=== PATIENT | female | born 2000 | race Caucasian/White ===

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

== ENCOUNTER → 2018-07-01 10:46 | Outpatient (CLI) | payer OTHER, SELFPAY ==
[2018-07-01 11:41] LABS: Absolute Lymphocyte Count 1.36 X10^3/ul (0.83-4.51); Absolute Neutrophil Count 2.7 X10^3/uL (2.0-7.7); Basophil# 0.01 X10^3/uL; Basophil% 0.2 % (0-1); Eosinophil# 0.05 X10^3/uL; Eosinophils% 1.1 % (0-5); Hematocrit 40.3 % (37-47); Hemoglobin 13.2 g/dl (12.0-15.0); Lymphocyte # 1.36 X10^3/ul (4.0); Lymphocyte % 30.2 % (19-41); Mean Corp Hgb Conc 32.8 g/gl (32-36); Mean Corpuscular Hgb 29.6 pg (27.0-32.0); Mean Corpuscular Volume 90.4 fL (81-99); Mean Platelet Vol. 10.5 fl (6.2-12.0); Monocyte# 0.34 X10^3/uL; Monocyte% 7.6 % (0-10); Neutrophil # 2.73 X10^3/uL (2.7-7.7); Neutrophil % 60.7 % (47-70); Platelet Count 280 K/mm3 (150-450); RBC Distribution Width CV 12.4 % (11.6-14.6); RBC Distribution Width SD 40.6 fl (35.1-43.9); Red Blood Count 4.46 M/mm3 (4.2-5.4); White Blood Count 4.5 K/mm3 (4.4-11.0)
[2018-07-01 11:45] LABS: POSITIVE COUNT NO; POSITIVE DIFFERENTIAL NO; POSITIVE MORPHOLOGY NO
[2018-07-01 12:13] LABS: ALB/GLOB Ratio 1.1 RATIO (0.9-2.4); AST(SGOT) 18 U/L (15-37); Alanine Aminotransfer ALT/SGPT 21 U/L (13-56); Albumin, Serum 3.9 g/dL (3.2-5.0); Alkaline Phosphatase 43 U/L (45-117); Anion Gap 9 (5-15); BUN 14 mg/dL (7-18); BUN/Creat Ratio 14.3 RATIO (10-20); Chloride 106 mmol/L (98-107); Creatinine, Serum 0.98 mg/dL (0.55-1.02); EST Glomerular Filtration Rate 77 mL/min (>60); Est Glom Filt Rate - Afr Amer 94 mL/min (>60); Globulin 3.4 g/dL (2.2-4.2); Glucose 94 mg/dL (74-106); Potassium 4.1 mmol/L (3.5-5.1); Protein, Total 7.3 g/dL (6.4-8.2); Sodium Level 141 mmol/L (136-145); Thyroid Stim Hormone (TSH) 1.11 uIU/mL (0.358-3.74)
== END ==
PROVIDERS: Nurse Practitioner Family; Family Provider Family Medicine; PCP Family Medicine; Referring Provider Urology; Visit Provider Urology
DX: R53.83 Other fatigue (principal)
CPT/HCPCS: 36415; 80053; 84443; 85025

== ENCOUNTER → 2019-05-09 15:59 | Outpatient (CLI) | payer OTHER, SELFPAY ==
--- NOTE | 2019-05-09 16:12 | VDLE_ITS ---
Reason For Study: COMPARTMENT SYNDROME RIGHT GSV is normal. CFV is compressible, spontaneous, phasic, competent and demonstrates normal augmentation. FV is compressible, spontaneous, phasic, competent and demonstrates normal augmentation. POP V is compressible, spontaneous, phasic, competent and demonstrates normal augmentation. T/P Trunk is compressible. Rt PTV is dilated and NONCOMPRESSIBLE from mid calf to ankle. Rt PeroV is dilated and NONCOMPRESSIBLE. Technically difficult visualization due to edema s/p compartment syndrome surgery. Procedure Exam performed in department. A preliminary report was called and/or faxed to [facility]- Jovanni Alexis. Interpretation Summary Acute deep vein thrombosis is noted in the right posterior tibial vein. Acute deep vein thrombosis is noted in the right peroneal vein. The remainder of the right lower extremity deep venous system is patent and compressible. Valvular competence appears intact within the proximal deep venous system on the right . The right great saphenous vein appears patent and compressible segmentally. Ordering Physician: JOVANNI ALEXIS Referring Physician: JOVANNI ALEXIS Performed By: Mariam Sheridan, CRISTAL, RVT
== END ==
DX: M79.A22 Nontraumatic compartment syndrome of left lower extremity (principal); M79.A21 Nontraumatic compartment syndrome of right lower extremity
CPT/HCPCS: 93971

== ENCOUNTER → 2019-05-11 07:59 | Outpatient (CLI) | payer OTHER, SELFPAY ==
--- NOTE | 2019-05-11 08:02 | VDLE_ITS ---
Reason For Study: DVT RIGHT LEFT GSV is normal. CFV is compressible, spontaneous, phasic, CFV is compressible, spontaneous, phasic, competent, and demonstrates normal competent and demonstrates normal augmentation. augmentation. FV is compressible, spontaneous, phasic, competent and demonstrates normal augmentation. POP V is compressible, spontaneous, phasic, competent and demonstrates normal augmentation. T/P Trunk is compressible. Acute deep vein thrombosis is noted in the PTV and PeroV at mid calf to ankle. Procedure Exam performed in department. PeroV techically difficult to visualize throughout due to compartment syndrome surgery. Compared to exam done 05/09/2019. A preliminary report was called and/or faxed to [facility]. Interpretation Summary Acute deep vein thrombosis is noted in the right posterior tibial vein. Acute deep vein thrombosis is noted in the right peroneal vein. The remainder of the right lower extremity deep venous system is patent and compressible. Valvular competence appears intact within the proximal deep venous system on the right . The right great saphenous vein appears patent and compressible segmentally. There has been no significant change since a prior study on 05/09/2019. Ordering Physician: JOVANNI ALEXIS Performed By: Meche Silveira RVT
== END ==
DX: I82.4Z1 Acute embolism and thrombosis of unspecified deep veins of right distal lower extremity (principal)
CPT/HCPCS: 93971

== ENCOUNTER → 2019-05-18 09:57 | Outpatient (CLI) | payer OTHER, SELFPAY ==
--- NOTE | 2019-05-18 10:05 | VDLE_ITS ---
Reason For Study: DVT RIGHT LEFT GSV is normal. CFV is compressible, spontaneous, phasic, CFV is compressible, spontaneous, phasic, competent, and demonstrates normal competent and demonstrates normal augmentation. augmentation. FV is compressible, spontaneous, phasic, competent and demonstrates normal augmentation. POP V is compressible, spontaneous, phasic, competent and demonstrates normal augmentation. T/P Trunk is compressible. Acute deep vein thrombosis is noted in the right peroneal vein. Acute deep vein thrombosis is noted in the right PTV, but is no longer dilated. Hypoechoic structure noted throughout the right proximal calf muscle. Procedure Exam performed in department. Compared to 05/11/2019. A preliminary report was called and/or faxed to [facility]. Interpretation Summary Acute deep vein thrombosis is noted in the right peroneal vein. Acute deep vein thrombosis is noted in the right posterior tibial vein. The remainder of the right lower extremity deep venous system is patent and compressible. Valvular competence appears intact within the proximal deep venous system on the right . The right great saphenous vein appears patent and compressible segmentally. There has been no significant change in the right lower extremity deep venous thrombosis since a prior study on 05/11/2019. A large, non-vascular, hypoechoic structure is noted in the right proximal calf. This may represent a hematoma or seroma. Clinical correlation is advised. Ordering Physician: JOVANNI ALEXIS Performed By: Meche Silveira RVT
== END ==
DX: I82.4Z1 Acute embolism and thrombosis of unspecified deep veins of right distal lower extremity (principal)
CPT/HCPCS: 93971

== ENCOUNTER → 2019-07-06 14:03 | Outpatient (CLI) | payer OTHER, SELFPAY ==
--- NOTE | 2019-07-06 14:06 | VDLE_ITS ---
Reason For Study: DVT RIGHT GSV is normal. CFV is compressible, spontaneous, phasic, competent and demonstrates normal augmentation. FV is compressible, spontaneous, phasic, competent and demonstrates normal augmentation. POP V is compressible, spontaneous, phasic, competent and demonstrates normal augmentation. T/P Trunk is compressible. PTV is compressible. RT PerV is compressible. Compared to 05/18/2019. Procedure Exam performed in department. A preliminary report was called and/or faxed to [facility]. Interpretation Summary Deep veins of the right lower extremity are patent and compressible segmentally. There is no evidence of right lower extremity deep vein thrombosis. Valvular competence appears intact within the proximal deep venous system on the right . The right great saphenous vein appears patent and compressible segmentally. Acute deep vein thrombosis, identified in the right lower extremity on previous studies, appears to have resolved. Ordering Physician: Edilberto Garcia Performed By: Meche Silveira RVT
== END ==
PROVIDERS: PCP Orthopaedic Surgery; Referring Provider Orthopaedic Surgery; Visit Provider Orthopaedic Surgery
DX: I82.4Z1 Acute embolism and thrombosis of unspecified deep veins of right distal lower extremity (principal)
CPT/HCPCS: 93971

== ENCOUNTER → 2019-11-21 09:55 | Outpatient (CLI) | payer OTHER, SELFPAY ==
[2019-11-21 13:05] LABS: Cholesterol 179 mg/dL (200); High Density Lipoprotein 74 mg/dL; Triglycerides 75 mg/dL; Very Low Density Lipoprotein 15 mg/dL (5-40)
[2019-11-21 13:06] LABS: Homocysteine 7.4 umol/L (3.2-10.7)
== END ==
PROVIDERS: PCP Family Medicine; Referring Provider Family Medicine; Visit Provider Obstetrics & Gynecology
DX: Z86.718 Personal history of other venous thrombosis and embolism (principal)
CPT/HCPCS: 36415; 80061; 81240; 81241; 81291; 83090

== ENCOUNTER → 2019-12-10 09:55 | Outpatient (CLI) | payer OTHER, SELFPAY ==
--- NOTE | 2019-12-10 09:56 | ECHOD_ITS ---
Reason For Study: Arrhythmia Procedure This was a 2D Doppler, Color Flow transthoracic echocardiogram. Exam performed in department. Left Ventricle Normal LV size. Left ventricular systolic function is normal. The estimated ejection fraction is 60 %. Normal diastology for age. No regional wall motion abnormalities noted. Right Ventricle Normal RV size. Normal systolic function. Atria Normal left atrium. Normal right atrium. Mitral Valve Normal mitral valve. Tricuspid Valve Normal tricuspid valve. Aortic Valve Normal aortic valve. Trisinus/trileaflet aortic valve. Pulmonic Valve Normal pulmonic valve. Great Vessels Normal aortic root. The pulmonary artery is normal size. Normal inferior vena cava. Inferior vena cava collapse with sniff. Pericardium/Pleural No pericardial effusion. MMode/2D Measurements & Calculations LVIDd: 4.5 cm IVSd: 0.67 cm Ao root diam: 2.4 cm LVIDs: 3.2 cm LVPWd: 0.71 cm RVDd: 2.2 cm FS: 30.1 % LAV(MOD-bp): 16.1 ml LA A4 area: 9.9 cm2 RA A4 area: 8.1 cm2 LAV(MOD-bp) Indexed: 9.5 ml/m2 LAV(MOD-sp2): 14.9 ml LAV(MOD-sp4): 15.4 ml Doppler Measurements & Calculations MV E max pablo: 95.0 cm/sec Lat Peak E' Pablo: 16.7 cm/sec Med Peak E' Pablo: 16.7 cm/sec MV A max pablo: 35.7 cm/sec E/E' lat: 5.7 E/E' med: 5.7 MV E/A: 2.7 Ao V2 max: 115.3 cm/sec LV V1 max: 103.1 cm/sec PA V2 max: 109.3 cm/sec Ao max P.3 mmHg LV V1 max P.3 mmHg Interpretation Summary Normal LV size. Left ventricular systolic function is normal. The estimated ejection fraction is 60 %. Structurally normal valves. Ordering Physician: Be Lugo Referring Physician: Shine Kapadia Performed By: Marianela Brian RDCS
== END ==
PROVIDERS: PCP Family Medicine; Referring Provider Internal Medicine Cardiovascular Disease; Visit Provider Internal Medicine Cardiovascular Disease
DX: Q67.6 Pectus excavatum (principal); Z82.49 Family history of ischemic heart disease and other diseases of the circulatory system; E72.12 Methylenetetrahydrofolate reductase deficiency; Z86.718 Personal history of other venous thrombosis and embolism
CPT/HCPCS: 93306

== ENCOUNTER → 2022-01-01 | Outpatient (CLI) | payer OTHER, SELFPAY ==
[2022-01-06 08:42] LABS: V-Zoster Virus Acute IgM < 0.91 index (0.00-0.90)
== END | disposition home or self-care (01) ==
LOC: MTLAB 15:19
PROVIDERS: PCP Family Medicine; Referring Provider Family Medicine; Visit Provider Family Medicine
DX: Z78.9 Other specified health status (principal)
CPT/HCPCS: 36415; 86787

== ENCOUNTER → 2022-07-16 | Outpatient (CLI) | payer OTHER, SELFPAY ==
[2022-07-16 09:19] LABS: Absolute Lymphocyte Count 1.06 X10^3/uL (0.83-4.51); Absolute Neutrophil Count 1.9 X10^3/uL (2.0-7.7); Basophil# 0.02 X10^3/uL; Basophil% 0.6 % (0-1); Eosinophil# 0.06 X10^3/uL; Eosinophils% 1.8 % (0-5); Hemoglobin 13.9 g/dL (12.0-15.0); Lymphocyte # 1.06 X10^3/ul (0.83-4.51); Lymphocyte % 32.5 % (19-41); Mean Corp Hgb Conc 33.9 g/dL (32-36); Mean Corpuscular Volume 91.5 fL (81-99); Mean Platelet Vol. 10.7 fl (6.2-12.0); Monocyte# 0.23 X10^3/uL; Monocyte% 7.1 % (0-10); NRBC Flagged by Analyzer 0 % (0-5); Neutrophil # 1.89 X10^3/uL (2.7-7.7); Platelet Count 212 K/mm3 (150-450); RBC Distribution Width CV 11.8 % (11.6-14.6); Red Blood Count 4.48 M/mm3 (4.2-5.4); White Blood Count 3.3 K/mm3 (4.4-11.0)
[2022-07-16 09:44] LABS: ALB/GLOB Ratio 1.3 RATIO (0.9-2.4); AST(SGOT) 21 U/L (15-37); Alanine Aminotransfer ALT/SGPT 35 U/L (13-56); Albumin, Serum 4.3 g/dL (3.2-5.0); Alkaline Phosphatase 38 U/L (45-117); Anion Gap 6 (5-15); BUN 11 mg/dL (7-18); BUN/Creat Ratio 12.9 RATIO (10-20); Calcium,Total 9.6 mg/dL (8.5-10.1); Chloride 109 mmol/L (98-107); Cholesterol 151 mg/dL (200); Creatinine, Serum 0.86 mg/dL (0.55-1.02); EST Glomerular Filtration Rate 87 mL/min (>60); Est Glom Filt Rate - Afr Amer 105 mL/min (>60); Globulin 3.2 g/dL (2.2-4.2); Glucose 94 mg/dL (74-106); High Density Lipoprotein 56 mg/dL; Potassium 3.9 mmol/L (3.5-5.1); Protein, Total 7.5 g/dL (6.4-8.2); Sodium Level 140 mmol/L (136-145); Triglycerides 53 mg/dL; Very Low Density Lipoprotein 11 mg/dL (5-40)
== END | disposition home or self-care (01) ==
LOC: BIMLAB 08:40
PROVIDERS: PCP Family Medicine; Visit Provider Internal Medicine
DX: E72.12 Methylenetetrahydrofolate reductase deficiency (principal); Z82.49 Family history of ischemic heart disease and other diseases of the circulatory system; Z86.718 Personal history of other venous thrombosis and embolism
CPT/HCPCS: 36415; 80053; 80061; 83090; 85025

== ENCOUNTER → 2022-11-12 | Outpatient (CLI) | payer OTHER, SELFPAY ==
[2022-11-12 09:05] LABS: Glucose 75GTT - 30 minutes 122 mg/dL (100-160)
[2022-11-12 09:19] LABS: Insulin 75GTT - 30 MIN 96.4 mU/L (Not Estab.)
[2022-11-12 09:20] LABS: Insulin 75GTT - Fasting 4.2 mU/L (2.6-37.6)
[2022-11-12 09:20] LABS: Progesterone Level 0.72 ng/mL (See Comment); T3 Total - Triiodothyronine 1.03 ng/mL (0.6-1.81); Vitamin B12 259 pg/mL (211-911)
[2022-11-12 09:23] LABS: Prolactin 79.4 ng/mL; Thyroid Stim Hormone (TSH) 1.87 uIU/mL (0.358-3.74)
[2022-11-12 10:32] LABS: Glucose 75GTT - Fasting 105 mg/dL (70-99)
[2022-11-12 10:39] LABS: Glucose 75GTT - 120 minutes 64 mg/dL (70-140)
[2022-11-12 10:40] LABS: Cholesterol 118 mg/dL (200); Estradiol 41.2 pg/mL; Free T3 2.6 pg/mL (2.18-3.98); High Density Lipoprotein 55 mg/dL; Luteinizing Hormone 5.3 mIU/mL; Prolactin 28.7 ng/mL; T4 Free Direct 1.18 ng/dL (0.76-1.46); Thyroid Stim Hormone (TSH) 2.03 uIU/mL (0.358-3.74); Triglycerides 62 mg/dL; Very Low Density Lipoprotein 12 mg/dL (5-40)
[2022-11-12 10:47] LABS: Insulin 75GTT - 120 min 27.5 mU/L (Not Estab.)
[2022-11-12 10:48] LABS: Glucose 75GTT - 60 minutes 60 mg/dL (100-160)
[2022-11-12 10:52] LABS: Insulin 75GTT - 60 min 64.5 mU/L (Not Estab)
[2022-11-12 10:53] LABS: Prolactin 25.5 ng/mL; Thyroid Stim Hormone (TSH) 1.34 uIU/mL (0.358-3.74)
[2022-11-12 11:35] LABS: Prolactin 19.1 ng/mL; Thyroid Stim Hormone (TSH) 1.13 uIU/mL (0.358-3.74)
[2022-11-15 17:07] LABS: 17-Hydroxyprogesterone 48 ng/dL (.)
[2022-11-18 12:09] LABS: Androstenedione 91 ng/dL (41-262); Anti-Mullerian Hormone,Serum 4.01 ng/mL (.); Sex Hormone-binding Globulin 59.7 nmol/L (24.6-122.0); Testosterone, % Free 2.17 % (0.50-2.80); Testosterone, Free 0.52 ng/dL (0.10-0.85); Testosterone, Total 24 ng/dL (13-71)
== END | disposition home or self-care (01) ==
LOC: LAB 07:06
PROVIDERS: PCP Internal Medicine; Referring Provider Obstetrics & Gynecology; Visit Provider Obstetrics & Gynecology
DX: N91.2 Amenorrhea, unspecified (principal); E11.9 Type 2 diabetes mellitus without complications; Z13.220 Encounter for screening for lipoid disorders; E55.9 Vitamin D deficiency, unspecified; Z13.228 Encounter for screening for other metabolic disorders; Z13.1 Encounter for screening for diabetes mellitus
CPT/HCPCS: 36415; 80061; 82157; 82306; 82533; 82607; 82627; 82670; 82951; 82952; 83001; 83002; 83498; 83516; 83525; 84144; 84146; 84270; 84402; 84403; 84439; 84443; 84480; 84481; 82626

== ENCOUNTER → 2022-12-06 | Outpatient (CLI) | payer OTHER, SELFPAY ==
--- NOTE | 2022-12-06 17:05 | MRI_ITS ---
INDICATION: AMENORRHEA,HYPERPROLACTINEMIA SYNDROME EXAMINATION: MRI - MR Brain WO/W Contrast TECHNIQUE: Multiplanar and multisequence MR images of the brain, including thin slice imaging of the pituitary gland were obtained without and with gadolinium. IV Contrast Dosage and Agent: 11 cc Clariscan. COMPARISON: None. FINDINGS: BRAIN AND EXTRA-AXIAL SPACES: No intracranial mass, mass effect, or midline shift. No enhancing lesion. No hemorrhage, territorial infarct or acute ischemia. White matter is normal. Normal bey-white differentiation. Ventricles are normal in size. SELLA: Pituitary gland is normal in height for the patient''s age measuring 7 mm. No evidence of microadenoma or macroadenoma. Normal infundibulum, cavernous sinuses and optic chiasm. AUDITORY SYSTEM: Unremarkable. BONES/JOINTS: Unremarkable. SINUSES: Unremarkable as visualized. Clear. MASTOID AIR CELLS: Unremarkable as visualized. Clear. ORBITS: Unremarkable as visualized. VASCULATURE: Normal flow voids in the major intracranial circulation. MRI/Brain W/WO Contrast IMPRESSION: Negative MRI Brain. Unremarkable pituitary gland. Electronically Signed: Faina Sylvester MD at 23:00 EDT Reading Location ID and State: [id number] / Tel , Service support ,
== END | disposition home or self-care (01) ==
PROVIDERS: PCP Internal Medicine; Referring Provider Obstetrics & Gynecology; Visit Provider Obstetrics & Gynecology
DX: E23.0 Hypopituitarism (principal); E22.1 Hyperprolactinemia; N91.2 Amenorrhea, unspecified
CPT/HCPCS: 70553; A9575

== ENCOUNTER → 2023-02-28 | Outpatient (CLI) | payer OTHER, SELFPAY ==
[2023-02-28 12:34] LABS: Prolactin 10.7 ng/mL
[2023-02-28 14:02] LABS: Vitamin B12 475 pg/mL (211-911)
== END | disposition home or self-care (01) ==
LOC: BIMLAB 08:04
PROVIDERS: PCP Internal Medicine; Visit Provider Internal Medicine
DX: E53.8 Deficiency of other specified B group vitamins (principal); E23.0 Hypopituitarism
CPT/HCPCS: 36415; 82607; 84146

== ENCOUNTER → 2023-04-12 | Outpatient (CLI) | payer OTHER, SELFPAY ==
[2023-04-12 12:37] LABS: Prolactin 15.2 ng/mL
== END | disposition home or self-care (01) ==
LOC: BIMLAB 08:14
PROVIDERS: PCP Internal Medicine; Visit Provider Obstetrics & Gynecology
DX: E23.0 Hypopituitarism (principal)
CPT/HCPCS: 36415; 84146

== ENCOUNTER → 2023-06-29 | Outpatient (CLI) | payer OTHER, SELFPAY ==
--- OUTSIDE RECORDS SUMMARY | 2023-06-29 06:36 | XMS RPT_ITS | CCD ---
Author Name Unknown Address [address] [place] [address] Organization [facility] Care Team Providers Care Project Development Director Name Role Phone BRENNON URENA Unavailable Unavailable GRACE BUSBY Unavailable Unavailable Results Test Name Value Interpretation Reference Range Facil ity Encounters Encounter Date Encounter Type Care Provider Facility Start: 05-25-2017 End: 05-26-2017 Emergency department patient visit BRENNON URENA Facil ity:B Procedures Date Procedure Procedure Detail Performing Clinician Start: 10-16-2018 Blood count hematocrit Payers Date Payer Category Payer Unknown [id number] Summary Purpose Family History No Family History Records FoundNo Family History Records FoundNo Family History Records Found Advance Directives No Advanced Directives Records FoundNo Advanced Directives Records FoundNo Advanced Directives Records Found Additional Source Comments INFORMATION SOURCE (unrecogn ized section and content) DATE CREATED AUTHOR AUTHOR'S ORGANIZ ATION 05/03/2019 [facility] DATE CREATED AUTHOR AUTHOR'S ORGANIZ ATION 07/07/2019 [facility] FOR RECORDS PERTAINING TO PATIENTS WHO ARE OR HAVE BEEN ENROLLED IN A CHEMICAL DEPENDENCY/SUBSTANCEABUSE PROGRAM, SOME INFORMATION MAY BE OMITTED. This clinical summary was aggregated from multiple sources. Caution should be exercised in using it in the provision of clinical care. This summary normalizes information from multiple sources, and as a consequence, information in this document may materially change the coding, format and clinical context of patient data. In addition, data may be omitted in some cases. CLINICAL DECISIONS SHOULD BE BASED ON THE PRIMARY CLINICAL RECORDS. [facility] [employer] provides no warranty or guarantee of the accuracy or completeness of information in this document.
[2023-06-29 07:41] LABS: Prolactin 20.4 ng/mL
== END | disposition home or self-care (01) ==
LOC: LAB 06:34
PROVIDERS: PCP Internal Medicine; Referring Provider Obstetrics & Gynecology; Visit Provider Obstetrics & Gynecology
DX: E22.1 Hyperprolactinemia (principal)
CPT/HCPCS: 36415; 84146

== ENCOUNTER → 2023-08-03 | Outpatient (CLI) | payer OTHER, SELFPAY ==
[2023-08-03 11:14] LABS: Prolactin 9.8 ng/mL
== END | disposition home or self-care (01) ==
LOC: LAB 07:13
PROVIDERS: PCP Internal Medicine; Referring Provider Obstetrics & Gynecology; Visit Provider Obstetrics & Gynecology
DX: E22.1 Hyperprolactinemia (principal)
CPT/HCPCS: 36415; 84146

== ENCOUNTER → 2024-02-07 | Outpatient (CLI) | payer OTHER, SELFPAY ==
[2024-02-07 17:32] LABS: Absolute Lymphocyte Count 1.49 X10^3/uL (0.83-4.51); Absolute Neutrophil Count 5.2 X10^3/uL (2.0-7.7); Basophil# 0.02 X10^3/uL; Basophil% 0.3 % (0-1); Eosinophil# 0.03 X10^3/uL; Eosinophils% 0.4 % (0-5); Hematocrit 41.4 % (37-47); Hemoglobin 13.9 g/dL (12.0-15.0); Lymphocyte # 1.49 X10^3/ul (0.83-4.51); Lymphocyte % 20.7 % (19-41); Mean Corp Hgb Conc 33.6 g/dL (32-36); Mean Corpuscular Volume 92.4 fL (81-99); Mean Platelet Vol. 10.6 fl (6.2-12.0); Monocyte# 0.49 X10^3/uL; Monocyte% 6.8 % (0-10); NRBC Flagged by Analyzer 0 % (0-5); Neutrophil # 5.16 X10^3/uL (2.7-7.7); Neutrophil % 71.7 % (47-70); Platelet Count 238 K/mm3 (150-450); RBC Distribution Width SD 41.1 fl (35.1-43.9); Red Blood Count 4.48 M/mm3 (4.2-5.4); White Blood Count 7.2 K/mm3 (4.4-11.0)
[2024-02-07 17:49] LABS: ALB/GLOB Ratio 1.3 RATIO (0.9-2.4); AST(SGOT) 19 U/L (15-37); Alanine Aminotransfer ALT/SGPT 21 U/L (13-56); Albumin, Serum 4.3 g/dL (3.2-5.0); Alkaline Phosphatase 43 U/L (45-117); Anion Gap 6 (5-15); BUN 15 mg/dL (7-18); BUN/Creat Ratio 16.7 RATIO (10-20); Calcium,Total 9.9 mg/dL (8.5-10.1); Chloride 104 mmol/L (98-107); Cholesterol 153 mg/dL (200); EST Glomerular Filtration Rate 81 mL/min (>60); Est Glom Filt Rate - Afr Amer 98 mL/min (>60); Globulin 3.3 g/dL (2.2-4.2); Glucose 89 mg/dL (74-106); High Density Lipoprotein 69 mg/dL; Potassium 3.9 mmol/L (3.5-5.1); Protein, Total 7.6 g/dL (6.4-8.2); Sodium Level 136 mmol/L (136-145); Triglycerides 71 mg/dL; Very Low Density Lipoprotein 14 mg/dL (5-40)
[2024-02-09 08:13] LABS: PROGESTERONE 10.9 ng/mL (.)
== END | disposition home or self-care (01) ==
LOC: BIMLAB 15:27
PROVIDERS: PCP Internal Medicine; Referring Provider Obstetrics & Gynecology; Visit Provider Obstetrics & Gynecology
DX: N92.6 Irregular menstruation, unspecified (principal)
CPT/HCPCS: 36415; 80053; 80061; 84144; 85025

== ENCOUNTER → 2024-06-13 | Outpatient (CLI) | payer OTHER, SELFPAY ==
[2024-06-13 17:23] LABS: Estradiol 111.3 pg/mL
[2024-06-13 17:42] LABS: hCG Titer Quant., Serum 2395 mIU/mL (1-3)
[2024-06-15 04:07] LABS: PROGESTERONE 7.6 ng/mL (.)
== END | disposition home or self-care (01) ==
LOC: BIMLAB 14:53
PROVIDERS: PCP Internal Medicine; Referring Provider Obstetrics & Gynecology; Visit Provider Obstetrics & Gynecology
DX: N92.6 Irregular menstruation, unspecified (principal)
CPT/HCPCS: 36415; 82670; 84144; 84702

== ENCOUNTER → 2024-06-17 | Outpatient (CLI) | payer OTHER, SELFPAY ==
[2024-06-17 11:36] LABS: hCG Titer Quant., Serum 2045 mIU/mL (1-3)
== END | disposition home or self-care (01) ==
LOC: LAB 10:36
PROVIDERS: PCP Student in an Organized Health Care Education/Training Program; Visit Provider Obstetrics & Gynecology
DX: O20.9 Hemorrhage in early pregnancy, unspecified (principal); Z3A.00 Weeks of gestation of pregnancy not specified
CPT/HCPCS: 36415; 84702

== ENCOUNTER → 2024-06-18 | Outpatient (CLI) | payer OTHER, SELFPAY ==
--- NOTE | 2024-06-18 09:31 | US_ITS ---
EXAM: US First Trimester , Transabdominal and Transvaginal CLINICAL INDICATION: TECHNIQUE: Real-time transabdominal and transvaginal obstetrical ultrasound of the maternal pelvis and a first trimester with image documentation. Transvaginal imaging was used for better evaluation of the fetus and adnexa. COMPARISON: No relevant prior studies available. FINDINGS: GESTATION: Gestational sac 0.71 cm. This appears to be low-lying and complex. CRL not visualized. Yolk sac not visualized. PLACENTA/AMNIOTIC FLUID: Cannot be adequately evaluated due to the early gestational age. UTERUS/CERVIX: Unremarkable. No myometrial mass. The uterus measures 9.1 x 5.1 x 3.1 cm. OVARIES: Unremarkable. No mass. FREE FLUID: No free fluid. OTHER FINDINGS: Multiple attempts to call Dr Catherine Lennon were unsuccessful as documented by the director of people. US/Transvaginal w/Preg US IMPRESSION: Possible low-lying gestational sac corresponding to 5 weeks and 3 days gestatio n. heart tone or yolk sac not visualized at this time. This may be secondary to early or missed . Beta HCG on 04/12 was 2395 and on 06/15 was 2045. Repeat pelvic ultrasound in 10-14 days is recommended. Continue following seri al beta HCG. Reading Location: [place]
== END | disposition home or self-care (01) ==
PROVIDERS: PCP Student in an Organized Health Care Education/Training Program; Referring Provider Obstetrics & Gynecology; Visit Provider Obstetrics & Gynecology
DX: N92.6 Irregular menstruation, unspecified (principal)
CPT/HCPCS: 76817

== ENCOUNTER → 2024-06-28 | Outpatient (CLI) | payer OTHER, SELFPAY ==
--- NOTE | 2024-06-28 15:23 | US_ITS ---
PROCEDURE: TRANSVAGINAL W/PREG US REASON FOR EXAM: Threatened . Bleeding. COMPARISON: Comparison is made with prior study dated June 18, 2024. FINDINGS: Comments: LMP: May 02, 2024. Number of Gestational Sacs: Not visualized. Number of Fetuses: Not visualized. Yolk Sac: Not visualized. Placenta: Presently not well-visualized Uterine Abnormalities: Maternal uterus is unremarkable. Ovaries / Adnexa: 1.1 cm x 1.1 cm x 0.9 cm left ovarian follicle. US/Transvaginal w/Preg US IMPRESSION: No intrauterine gestation is seen at this time. Reading Location: [place]
== END | disposition home or self-care (01) ==
PROVIDERS: PCP Student in an Organized Health Care Education/Training Program; Referring Provider Obstetrics & Gynecology; Visit Provider Obstetrics & Gynecology
DX: O20.0 Threatened abortion (principal); Z3A.00 Weeks of gestation of pregnancy not specified
CPT/HCPCS: 76817

== ENCOUNTER → 2024-06-28 | Outpatient (CLI) | payer OTHER, SELFPAY ==
[2024-06-28 15:48] LABS: Internal QC Validated? YES +Cl - CLEAR BKGD; Pregnancy, Serum, hCG Quali. POSITIVE Negative
[2024-06-29 14:35] LABS: hCG Titer Quant., Serum 36 mIU/mL (<9 non-preg)
== END | disposition home or self-care (01) ==
LOC: LAB 15:10
PROVIDERS: PCP Student in an Organized Health Care Education/Training Program; Referring Provider Obstetrics & Gynecology; Visit Provider Obstetrics & Gynecology
DX: O20.0 Threatened abortion (principal); Z3A.00 Weeks of gestation of pregnancy not specified
CPT/HCPCS: 36415; 84702; 84703

== ENCOUNTER 2024-08-25 07:40 | Outpatient (RCR) | payer OTHER, SELFPAY | END 2024-08-29 18:00 | disposition home or self-care (01) | LOC: LAB 07:40 | PROVIDERS: PCP Student in an Organized Health Care Education/Training Program; Referring Provider Obstetrics & Gynecology; Visit Provider Obstetrics & Gynecology | DX: E22.1 Hyperprolactinemia (principal) | CPT/HCPCS: 36415; 84146 ==

== ENCOUNTER → 2024-12-06 | Outpatient (CLI) | payer OTHER, SELFPAY ==
[2024-12-06 15:20] LABS: hCG Titer Quant., Serum 397 mIU/mL (<9 non-preg)
[2024-12-07 04:07] LABS: PROLACTIN 21.4 ng/mL (4.8-33.4)
[2024-12-07 04:07] LABS: PROGESTERONE 18.0 ng/mL (.)
== END | disposition home or self-care (01) ==
LOC: LAB 10:25
PROVIDERS: PCP Student in an Organized Health Care Education/Training Program; Referring Provider Obstetrics & Gynecology; Visit Provider Obstetrics & Gynecology
DX: E22.1 Hyperprolactinemia (principal); E28.9 Ovarian dysfunction, unspecified
CPT/HCPCS: 36415; 82670; 84144; 84146; 84702

== ENCOUNTER → 2024-12-20 | Outpatient (CLI) | payer OTHER, SELFPAY ==
--- NOTE | 2024-12-20 14:29 | US_ITS ---
PROCEDURE: TRANSVAGINAL W/PREG US 12/20/2024 REASON FOR EXAM: VERIFY DATES AND LOCATION TECHNIQUE: TRANSVAGINAL W/PREG US COMPARISON: None FINDINGS: Comments: LMP: November 04, 2024. Number of Gestational Sacs: 1 Gestational Sac Shape: Normal Number of Fetuses: 1 Heart Rate: 126 beats per minute (average) Yolk Sac: Present and unremarkable. Placenta: Presently not well-visualized Amniotic Fluid Volume: Subjectively normal for gestational age. Uterine Abnormalities: Maternal uterus is unremarkable. Ovaries / Adnexa: Both maternal ovaries are visualized and unremarkable. DIMENSIONS: Parameter Measurement / EGA [place] Rump Length: 3 mm/6 weeks and 1 day Gestational Sac: 1.71 cm/6 weeks and 4 days Yolk Sac: 2.7 mm/ ESTIMATED GESTATIONAL AGE: By Ultrasound: 6 weeks and 3 days By LMP: 6 weeks and 4 days ESTIMATED DATE OF DELIVERY: By Ultrasound: August 12, 2025 By LMP: August 11, 2025 US/Transvaginal w/Preg US IMPRESSION: UNREMARKABLE FIRST TRIMESTER ULTRASOUND. Single live intrauterine gestation with a mean gestational age of 6 weeks and 3 days. Reading Location: [id number]
--- OUTSIDE RECORDS SUMMARY | 2024-12-20 20:49 | XMS RPT_ITS | CCD ---
Author Organization [facility] Care Team Providers Care Director Inbound Sales Name Role Phone ROMEL, BRENNON Unavailable Unavailable GRACE BUSBY Unavailable Unavailable Dr. Grace Kapadia Referring Provider Dr. Fatemeh Medina Attending Provider [phone] Dr. Fatemeh Medina Primary Care Provider [phone] Dr. Fatemeh Medina Referring Provider [phone] Dr. Fatemeh Medina Primary Care Provider [phone] Dr. Fatemeh Medina Attending Provider [phone] Dr. Fatemeh Medina Referring Provider [phone] Dr. Fatemeh Medina Primary Care Provider [phone] Dr. Fatemeh Medina Attending Provider [phone] Dr. Fatemeh Medina Referring Provider [phone] Unavailable Primary Care Provider UnavailDr. Fatemeh Hernandez Primary Care Provider [phone] Dr. Fatemeh Medina Attending Provider [phone] Dr. Fatemeh Medina Referring Provider [phone] Sean Bond DO Primary Care Provider Dr. Fatemeh Medina MD Primary Care Provider Kulwinder Lennon MD, Dr. Alexander Attending Provider Kulwinder Lennon MDDr. Alexander Referring Provider Dr. Sean Bond DO Primary Care Provider ANDREI, JULI Referring Unavailable BOND, SEAN L Primary Care Unavailable Mariely LOCOMOTIVE DRIVER.AUTOMOTIVE GENERATOR REPAIRER, Stephanie Unavailable BOND, SEAN L Attending Unavailable BOND, SEAN L Primary Care Unavailable BOND, SEAN L Primary Care Unavailable BONDSEAN L Attending Unavailable SELF Referring Unavailable BOND, SEAN L Referring Unavailable PROUDFIT, JULI Attending Unavailable BOND, SEAN L Primary Care Unavailable SELF Referring Unavailable BOND, SEAN L Primary Care Unavailable BOND, SEAN L Primary Care Unavailable BOND, SEAN L Referring Unavailable BOND, SEAN L Primary Care Unavailable AMANDA BUSBY CNM Attending Unavailable AMANDA BUSBY CNM Primary Care Unavailable AMANDA BUSBY CNM Admitting Unavailable PRESTON MIRAMONTES SUMMER Admitting Unavailable PRESTON MIRAMONTES SUMMER Attending Unavailable PRESTON MIRAMONTES SUMMER Primary Care Unavailable PRESTON MIRAMONTES SUMMER Attending Unavailable PRESTON MIRAMONTES SUMMER Primary Care Unavailable PRESTON MIRAMONTES SUMMER Admitting Unavailable Dr. Sean Bond DO Primary Care Provider [phone] Dr. Catherine Stafford MD Attending Provider Dr. Catherine Stafford MD Referring Provider Catherine Stafford Attending Unavailable Miramontes Preston, Summer Referring Unavailable Oleghe, Efewongbe Primary Care Unavailable Miramontespuja Lennon Summer Attending Unavailable Kulwinder Lennon Summer Referring Unavailable eSan Bond Primary Care Unavailable Oleghe, Efewongbe Attending Unavailable Oleghe, Efewongbe Referring Unavailable Oleghe, Efewongbe Primary Care Unavailable Miramontes Preston, Summer Referring Unavailable Miramontespuja Lennon Summer Attending Unavailable Sean Bond Primary Care Unavailable Miramontespuja Lennon Summer Referring Unavailable Catherine Stafford Attending Unavailable Sean Bond Primary Care Unavailable Oleghe, Efewongbe Primary Care Unavailable Miramontes Preston, Summer Attending Unavailable Miramontes Preston, Summer Referring Unavailable Miramontes Preston, Summer Referring Unavailable Kulwinder Lennon Summer Attending Unavailable Sean Bond Primary Care Unavailable Oleghe, Efewongbe Referring Unavailable NURSE, BIM Attending Unavailable Oleghe, Efewongbe Primary Care Unavailable Catherine Stafford Attending Unavailable Sean Bond Primary Care Unavailable Catherine Stafford Referring Unavailable Catherine Stafford Attending Unavailable Sean Bond Primary Care Unavailable Catherine Stafford Referring Unavailable Catherine Stafford Attending Unavailable Sean Bond Primary Care Unavailable Medications Current Medications Medication Drug Class(es) Dates Sig (Normalized) Sig (Original) bromocriptine 2.5 mg oral tablet (9 sources) Ergot Derivative Start: 04-01-2023 Bromocriptine 2.5 mg tablet Active mg PO August 25, 2023 12:00am Completed/Discontinued Medications Medication Drug Class(es) Dates Sig (Normalized) Sig (Original) adapalene 0.003 mg/mg topical gel (9 sources) Retinoid Start: 11-11-2022 End: 08-25-2023 Adapalene 0.3 % gel Discontinued 1 NMA TOPICAL EVERY EVENING 45 November 11, 2022 12:00am August 25, 2023 5:59pm clindamycin 0.01 mg/mg topical gel (9 sources) Lincosamide Antibacterial Start: 11-11-2022 End: 08-25-2023 Clindamycin Phosphate 1 % gel Discontinued 1 NMA TOPICAL every day in the morning and at bedtime 60 November 11, 2022 12:00am August 25, 2023 6:00pm codeine phosphate 2 mg/ml / phenylephrine hydrochloride 1 mg/ml / promethazine hydrochloride 1.25 mg/ml oral solution (2 sources) Opioid Agonist, Phenothiazine, alpha-1 Adrenergic Agonist Start: 05-21-2016 End: 05-01-2024 PROMETHAZINE VC-CODEINE 6.25-5-10 mg/5 mL syrp 05/21/2016 05/01/2024 Discontinued 24 hr desvenlafaxine succinate 25 mg extended release oral tablet (3 sources) Serotonin and Norepinephrine Reuptake Inhibitor Start: 11-29-2023 End: 03-08-2024 take 1 tablet by mouth once daily in the morning, then take 1 tablet by mouth every twenty-four hours Desvenlafaxine Succinate (Pristiq) 25 mg tablet extended release 24 hr Discontinued 25 mg PO EVERY MORNING 30 November 29, 2023 12:00am March 08, 2024 6:09pm drospirenone / Ethinyl Estradiol (2 sources) Progestin, Estrogen Start: 05-10-2016 End: 05-01-2024 Drospirenone-Ethiny l Estradiol (ELISA 28) 3-0.02 mg per tablet 05/10/2016 05/01/2024 Discontinued Start: 05-10-2016 Drospirenone-E thinyl Estradiol (ELISA 28) 3-0.02 mg per tablet 05/10/2016 Active hydrOXYzine hydrochloride 25 mg oral tablet (9 sources) Antihistamine Start: 11-11-2022 End: 08-25-2023 Hydroxyzine Hcl 25 mg tablet Discontinued 12.5 mg PO TWICE A DAY as needed for anxiety 60 November 11, 2022 12:00am August 25, 2023 6:00pm Start: 11-11-2022 take 12.5 mg by mout h twice daily Hydroxyzine Hcl Active 12.5 MG PO TWICE A DAY 60 November 11, 2022 12:00am minocycline 100 mg oral capsule (3 sources) Tetracycline-class Drug Start: 08-25-2023 End: 03-08-2024 take 1 mg by mouth once daily Minocycline 100 mg capsule Discontinued mg PO daily August 25, 2023 12:00am March 08, 2024 6:09pm sertraline 50 mg oral tablet (20 sources) Serotonin Reuptake Inhibitor Start: 05-26-2023 End: 08-25-2023 take 0.5 tablet by mouth once daily, then take 1 tablet by mouth once daily Sertraline (Zoloft) 50 mg tablet Discontinued 50 mg PO DAILY May 26, 2023 1:00am August 25, 2023 6:00pm Take 1/2 tablet daily x 2 weeks then increase to 1 tablet daily Start: 01-05-2023 End: 05-26-2023 take 1 tablet by mouth once daily Sertraline 50 mg tablet Discontinued 50 mg PO DAILY January 05, 2023 1:04pm May 26, 2023 2:22pm Start: 11-11-2022 End: 01-05-2023 take 0.5 tablet by mouth once daily, then take 1 tablet by mouth once daily Sertraline (Zoloft) 50 mg tablet Discontinued 50 mg PO DAILY 30 November 11, 2022 12:00am January 05, 2023 1:05pm Take 1/2 tablet daily x 2 weeks then increase to 1 tablet daily. spironolactone 100 mg oral tablet (19 sources) Aldosterone Antagonist Start: 11-11-2022 End: 05-26-2023 take 1 tablet by mouth once daily Spironolactone 100 mg tablet Discontinued 100 mg PO DAILY November 11, 2022 12:00am May 26, 2023 2:22pm Start: 12-05-2019 End: 07-07-2022 take 1 tablet by mouth once daily Spironolactone 50 mg tablet Discontinued 50 mg PO DAILY December 05, 2019 12:00am July 07, 2022 4:20pm Problems Active Problems Problem Classification Problem Date Documented Date Episodic/Chronic Anxiety disorders (20 sources) Generalized anxiety disorder; Translations: [Generalized anxiety disorder] Onset: 11-11-2022 Chronic Coagulation and hemorrhagic disorders (9 sources) Disorder of hemostatic system; Translations: [Coagulation defect, unspecified] Onset: 05-01-2024 Chronic Menstrual disorders (11 sources) Irregular periods; Translations: [Irregular menstruation, unspecified] Onset: 05-01-2024 Chronic Nutritional deficiencies (9 sources) Cobalamin deficiency; Translations: [Deficiency of other specified B group vitamins] 12-30-2022 Episodic Other congenital anomalies (10 sources) Pectus excavatum; Translations: [Pectus excavatum] 12-05-2019 Chronic Other diseases of veins and lymphatics (9 sources) Venous insufficiency of leg; Translations: [Venous insufficiency (chronic) (peripheral)] 07-07-2022 Episodic Other endocrine disorders (15 sources) Hyperprolactinemia; Translations: [Hyperprolactinemia] Onset: 12-30-2022 Chronic Other endocrine disorders (9 sources) Hyperprolactinemia; Translations: [Other and unspecified anterior pituitary hyperfunction] Onset: 12-30-2022 Chronic Other endocrine disorders (7 sources) Delayed menarche; 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] Onset: 05-01-2024 Chronic Other endocrine disorders (1 source) Delayed puberty; 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] Onset: Chronic Other endocrine disorders (2 sources) Ovarian dysfunction, unspecified; Translations: [Ovarian dysfunction, unspecified] Onset: Chronic Other gastrointestinal disorders (3 sources) Constipation; Translations: [Constipation, unspecified] 03-08-2024 Episodic Other skin disorders (9 sources) Acne; Translations: [Acne, unspecified] 11-11-2022 Episodic Other skin disorders (7 sources) Acne, unspecified; Translations: [Other acne] 11-11-2022 Episodic Residual codes; unclassified (10 sources) Heterozygous methylenetetrahydrofolate reductase mutation; Translations: [Genetic susceptibility to other disease] 12-10-2019 Episodic Residual codes; unclassified (10 sources) Family history of coronary arteriosclerosis; Translations: [Family history of ischemic heart disease and other diseases of the circulatory system] 12-05-2019 Episodic Residual codes; unclassified (11 sources) Genetic alleles; Translations: [Genetic susceptibility to other disease] Onset: 12-10-2019 Episodic Comment on above: Heterozygous for the 4G/5G deletion/insertion allele. 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] Onset: Episodic Residual codes; unclassified (1 source) Personal history of other complications of , childbirth and the puerperium; Translations: [History of miscarriage] Onset: Episodic Screening and history of mental health and substance abuse codes (2 sources) Patient encounter status; Translations: [Encounter for screening examination for other mental health and behavioral disorders] Onset: 10-10-2024 Episodic Past or Other Problems Problem Classification Problem Date Documented Da te Episodic/Chronic Hemorrhage during ; abruptio placenta; placenta previa (3 sources) Threatened ; Translations: [Hemorrhage in early , unspecified] Onset: 06-29-2024 Episodic Immunizations and screening for infectious disease (10 sources) Needs influenza immunization; Translations: [Encounter for immunization] Onset: 02-07-2024 01-26-2023 Episodic Other gastrointestinal disorders (8 sources) Acute constipation; Translations: [Constipation, unspecified] Onset: 05-01-2024 05-01-2024 Episodic Other gastrointestinal disorders (1 source) Constipation, unspecified; Translations: [Acute constipation] Onset: 05-01-2024 Episodic Phlebitis; thrombophlebitis and thromboembolism (10 sources) H/O: Deep vein thrombosis; Translations: [Personal history of other venous thrombosis and embolism] Onset: 05-02-2019 12-05-2019 Episodic Residual codes; unclassified (7 sources) FH: premature coronary heart disease; Translations: [Family history of ischemic heart disease and other diseases of the circulatory system] Onset: 05-01-2024 05-01-2024 Episodic Residual codes; unclassified (2 sources) Family history of ischemic heart disease and other diseases of the circulatory system; Translations: [Family history of premature CAD] Onset: 03-08-2024 Episodic Residual codes; unclassified (1 source) Other specified postprocedural states; Translations: [History of fasciotomy] Onset: 05-01-2024 Episodic Results Test Name Value Interpretation Reference Range Facility PROGESTERONE 4317on 12-19-19 25 PROGESTERONE 41.3 ng/mL Normal . [facility] Comment on above: Order Comment: PT RE FUSED CALLIN GFOR A DIFFERENT ORDER PATIENT DOES NOT WANT PROGESTERONE.RANGLE Result Comment: Foll icular phase 0.1 - 0.9 Luteal phase 1.8 - 23.9 Ovulation phase 0.1 - 12.0 First trimester 11.0 - 44.3 Second trimester 25.4 - 83.3 Third trimester 58.7 - 214.0 Postmenopausal 0.0 - 0.1 Performed at: - [facility] [id number] Weatherization Operations Manager: Terry Cantrell PhD, Phone: [phone] Performed By: #### L [id number] #### [facility] [address] [place], [place], [id number] Estradiolon 12-17-2024 ESTRADIOL 484.0 pg/mL Normal [facility] Comment on above: Result Comment: FEMA LES ADULT FEMALE: Premenopausal: 15-350 pg/mL(E2 levels vary widely through the menstrual cycle) Postmenopausal: <10 pg/mL DEVYN STAGES MEAN AGE REFERENCE RANGES Stage I(>14 days and prepubertal) 7.1 years Undetectable-20 pg/mLL Stage II 10.5 years Undetectable-24 pg/mL Stage III 11.6 years Undetectable-60 pg/mL Stage IV 12.3 years 15-85 pg/mL Stage V 14.5 years 15-350 pg/mL Puberty onset (transition from Devyn stage I to Devyn stage II) occurs for girls at a median age of 10.5 (/- 2) years. There is evidence that it may occur up to 1 year earlier in obese girls and in girls. Progression through Devyn stages is variable. Devyn stage V (adult) should be reached by age 18. Performed By: #### L 3100.5400 #### [facility] [address] [place], [place], [id number] hCG Titer Quant., Serumon HCG QUANT. 42177 mIU/mL High <9 non-preg [facility] Comment on above: Result Comment: Gest ational Age 0.2-1 Week: 5-50 mIU/mL 1-2 Weeks: 50-500 mIU/mL 2-3 Weeks: 100-5000 mIU/mL 3-4 Weeks: 500-10,000 mIU/mL 4-5 Weeks:1000-50,000 mIU/mL 5-6 Weeks: 10,000-100,000 mIU/mL 6-8 Weeks: 15,000-200,000 mIU/mL 2-3 Months:10,000-100,000 mIU/mL Performed By: #### L [id number] #### [facility] [address] [place], [place], [id number] PROGESTERONE 4317on 12-12-19 25 PROGESTERONE 14.1 ng/mL Normal . [facility] Comment on above: Order Comment: CHIQUI Sher RESULTS @[id number] Result Comment: Foll icular phase 0.1 - 0.9 Luteal phase 1.8 - 23.9 Ovulation phase 0.1 - 12.0 First trimester 11.0 - 44.3 Second trimester 25.4 - 83.3 Third trimester 58.7 - 214.0 Postmenopausal 0.0 - 0.1 Performed at: [facility] [id number] Weatherization Operations Manager: Terry Cantrell PhD, Phone: [phone] Performed By: #### L [id number] #### [facility] [address] [place], [place], [id number] PROLACTIN 4465on 12-11-2024 PROLACTIN 49.2 ng/mL High 4.8-33.4 [facility] Comment on above: Result Comment: Perf ormed at: [facility] [id number] Weatherization Operations Manager: Terry Cantrell PhD, Phone: [phone] Performed By: #### L [id number] #### [facility] [address] [place], [address] Estradiolon 12-10-2024 ESTRADIOL 419.0 pg/mL Normal [facility] Comment on above: Result Comment: FEMA LES ADULT FEMALE: Premenopausal: 15-350 pg/mL(E2 levels vary widely through the menstrual cycle) Postmenopausal: <10 pg/mL DEVYN STAGES MEAN AGE REFERENCE RANGES Stage I(>14 days and prepubertal) 7.1 years Undetectable-20 pg/mLL Stage II 10.5 years Undetectable-24 pg/mL Stage III 11.6 years Undetectable-60 pg/mL Stage IV 12.3 years 15-85 pg/mL Stage V 14.5 years 15-350 pg/mL Puberty onset (transition from Devyn stage I to Devyn stage II) occurs for girls at a median age of 10.5 (/- 2) years. There is evidence that it may occur up to 1 year earlier in obese girls and in girls. Progression through Devyn stages is variable. Devyn stage V (adult) should be reached by age 18. Performed By: #### L [id number] #### [facility] [address] [place], [place], [id number] Serum human chorionic gonado tropin detection for pregnancyOrdered By: Catherine Lennon on 12-10-2024 HCG ( test) Ql 1829 mIU/mL High <9 [facility] Comment on above: Gestational Age0.2-1 Week: 5-50 mIU/mL1-2 Weeks: 50-500 mIU/mL2-3 Weeks: 100-5000 mIU/mL3-4 Weeks: 500-10,000 mIU/mL4-5 Weeks:1000-50,000 mIU/mL5-6 Weeks: 10,000-100,000 mIU/mL6-8 Weeks: 15,000-200,000 mIU/mL2-3 Months:10,000-100,000 mIU/mL Serum or plasma estradiol me asurement after follitropin dose (mass/volume)Ordered By: Catherine Lennon on 12-10-2024 E2 post dose follitropin [Mass/Vol] 419.0 pg/mL [facility] Comment on above: FEMALES ADULT FEMALE : Premenopausal: 15-350 pg/mL(E2 levels vary widely through the menstrual cycle) Postmenopausal: <10 pg/mL DEVYN STAGES MEAN AGE REFERENCE RANGES Stage I(>14 days and prepubertal) 7.1 years Undetectable-20 pg/mLL Stage II 10.5 years Undetectable-24 pg/mL Stage III 11.6 years Undetectable-60 pg/mL Stage IV 12.3 years 15-85 pg/mL Stage V 14.5 years 15-350 pg/mL Puberty onset (transition from Devyn stage I to Devyn stage II) occurs for girls at a median age of 10.5 (/- 2) years. There is evidence that it may occur up to 1 year earlier in obese girls and in girls.Progression through Devyn stages is variable. Devyn stage V (adult) should be reached by age 18. Serum or plasma prolactin me asurement (mass/volume)Ordered By: Catherine Lennon on 12-10-2024 Prolactin [Mass/Vol] 49.2 ng/mL High 4.8-33.4 [facility] Comment on above: Performed at: [address] [id number] Director: Terry Cantrell PhD, Phone: [phone] hCG Titer Quant., Serumon HCG QUANT. 1829 mIU/mL High <9 non-preg [facility] Comment on above: Result Comment: Gest ational Age 0.2-1 Week: 5-50 mIU/mL 1-2 Weeks: 50-500 mIU/mL 2-3 Weeks: 100-5000 mIU/mL 3-4 Weeks: 500-10,000 mIU/mL 4-5 Weeks:1000-50,000 mIU/mL 5-6 Weeks: 10,000-100,000 mIU/mL 6-8 Weeks: 15,000-200,000 mIU/mL 2-3 Months:10,000-100,000 mIU/mL Performed By: #### L 700.8000 #### [facility] [address] [place], [place], [id number] PROGESTERONE 4317on 12-08-19 PROGESTERONE 18.0 ng/mL Normal . [facility] Comment on above: Order Comment: PLEAS E CALL W RESULTS @[id number] Result Comment: Foll icular phase 0.1 - 0.9 Luteal phase 1.8 - 23.9 Ovulation phase 0.1 - 12.0 First trimester 11.0 - 44.3 Second trimester 25.4 - 83.3 Third trimester 58.7 - 214.0 Postmenopausal 0.0 - 0.1 Performed at: [facility] [id number] Weatherization Operations Manager: Terry Cantrell PhD, Phone: [phone] Performed By: #### L [id number] #### [facility] [address] [place], [place], [id number] PROLACTIN 4465on 12-07-2024 PROLACTIN 21.4 ng/mL Normal 4.8-33.4 [facility] Comment on above: Result Comment: Perf ormed at: [address] [id number] Weatherization Operations Manager: Terry Cantrell PhD, Phone: [phone] Performed By: #### L [id number] #### [facility] [address] [place], [place], [address] Estradiolon 12-06-2024 ESTRADIOL 203.0 pg/mL Normal [facility] Comment on above: Order Comment: CHIQUI HENSON W RESULTS @[id number] Result Comment: FEMA LES ADULT FEMALE: Premenopausal: 15-350 pg/mL(E2 levels vary widely through the menstrual cycle) Postmenopausal: <10 pg/mL DEVYN STAGES MEAN AGE REFERENCE RANGES Stage I(>14 days and prepubertal) 7.1 years Undetectable-20 pg/mLL Stage II 10.5 years Undetectable-24 pg/mL Stage III 11.6 years Undetectable-60 pg/mL Stage IV 12.3 years 15-85 pg/mL Stage V 14.5 years 15-350 pg/mL Puberty onset (transition from Devyn stage I to Devyn stage II) occurs for girls at a median age of 10.5 (/- 2) years. There is evidence that it may occur up to 1 year earlier in obese girls and in girls. Progression through Devyn stages is variable. Devyn stage V (adult) should be reached by age 18. Performed By: #### L [id number] #### [facility] [address] [place], [place], [address] Serum human chorionic gonado tropin detection for pregnancyOrdered By: Catherine Lennon on 12-06-2024 HCG ( test) Ql 397 mIU/mL High <9 [facility] Comment on above: Gestational Age0.2-1 Week: 5-50 mIU/mL1-2 Weeks: 50-500 mIU/mL2-3 Weeks: 100-5000 mIU/mL3-4 Weeks: 500-10,000 mIU/mL4-5 Weeks:1000-50,000 mIU/mL5-6 Weeks: 10,000-100,000 mIU/mL6-8 Weeks: 15,000-200,000 mIU/mL2-3 Months:10,000-100,000 mIU/mL Serum or plasma estradiol me asurement after follitropin dose (mass/volume)Ordered By: Catherine Lennon on 12-06-2024 E2 post dose follitropin [Mass/Vol] 203.0 pg/mL [facility] Comment on above: FEMALES ADULT FEMALE : Premenopausal: 15-350 pg/mL(E2 levels vary widely through the menstrual cycle) Postmenopausal: <10 pg/mL DEVYN STAGES MEAN AGE REFERENCE RANGES Stage I(>14 days and prepubertal) 7.1 years Undetectable-20 pg/mLL Stage II 10.5 years Undetectable-24 pg/mL Stage III 11.6 years Undetectable-60 pg/mL Stage IV 12.3 years 15-85 pg/mL Stage V 14.5 years 15-350 pg/mL Puberty onset (transition from Devyn stage I to Devyn stage II) occurs for girls at a median age of 10.5 (/- 2) years. There is evidence that it may occur up to 1 year earlier in obese girls and in girls.Progression through Devyn stages is variable. Devyn stage V (adult) should be reached by age 18. Serum or plasma prolactin me asurement (mass/volume)Ordered By: Catherine Lennon on 12-06-2024 Prolactin [Mass/Vol] 21.4 ng/mL 4.8-33.4 [facility] Comment on above: Performed at: [address] [id number] Director: Terry Cantrell PhD, Phone: [phone] hCG Titer Quant., Serumon HCG QUANT. 397 mIU/mL High <9 non-preg [facility] Comment on above: Order Comment: PLEAS E CALL W RESULTS @[id number] Result Comment: Gest ational Age 0.2-1 Week: 5-50 mIU/mL 1-2 Weeks: 50-500 mIU/mL 2-3 Weeks: 100-5000 mIU/mL 3-4 Weeks: 500-10,000 mIU/mL 4-5 Weeks:1000-50,000 mIU/mL 5-6 Weeks: 10,000-100,000 mIU/mL 6-8 Weeks: 15,000-200,000 mIU/mL 2-3 Months:10,000-100,000 mIU/mL Performed By: #### L 952.3600 #### [facility] [address] [place], [address] [facility] 10-10-2024 [facility] Office Visit (FAMPWS ) ----- CARISSA TRIPATHI ([id number]) 2000 F Date Time Provider Department 10/10/24 1:40 PM [facility] During your visit today, we recorded the following information about you: Temperature Pulse Respiration Blood pressure 96.6 degrees 64/minute 12/minute 124/80 Weight Last Period 61.7 kg 10/07/24 Sean Bond, 10/10/2024 10:40 PM Signed CC: Carissa Tripathi is a 23 year old female who presents to the office for follow up HPI: Seen in the office 05/01/2024 to establish care as below, Hx of b/l leg fasciotomy in the past 3-4 years when she was having 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 Had compartment syndrome testing and subsequent surgery at [facility]. 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 She was then eventually stopped on her OCPs since she was taking these for menstrual regulation Hx of late onset of menarche at age 14 and only developed menses by being on OCPs. She wasn't ovulating. She has recently then been found to have hyperprolactinemia and started originally on Cabergoline but had severe GI upset. She was then changed to Bromocriptine which is what she takes now but only able to tolerate this when inserted vaginally. She struggles with constipation that came with abrupt onset around the same time as diagnosed with hyperprolactinemia and started on these medications. Also concerned about potential dairy food trigger or gluten food trigger to some of her symptoms since developed rash on her face that seemed to improved with removal of gluten and dairy Mild chronic anxiety symptoms. Did benefit in the past with zoloft but would prefer not be taking SSRI She has been told that because of the clotting disorder and the hyperprolactinemia, she may need special hormone management and medications when she is . She is now and would like to become in the future. She has Dr. Catherine Lennon as DIE DEVELOPER. Hasn't seen MFM/EDGAR in the past but is willing to. Family history of premature cardiac disease and premature in her father at age 52 and her paternal aunt and paternal grandfather all <55 years old Currently She had a recent miscarriage, this was confirmed by Dr. Catherine Kramer DIE DEVELOPER as well as with serum hcg testing. She was referred to [facility] specialist for opinion to determine if she needed any intervention with anti coagulation or progesterone support when she gets in the future. She is excited that she is able to get Anxiety, situational triggered, feels that this is related to her current job and all the stress that she has with her job. 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 She doesn't want to be on medication for this. Is now taking a vitamin. She is continuing to take her bromocriptine but still wondering if this contributes to her facial acne and constipation Acne, found to have lactose intolerance with labs ordered in the last few months. She has tried to cut out dairy from her diet and realizes that she feels a lot better doing this. Her skin acne is resolved when following this and constipation improves. PAST MEDICAL HISTORY Diagnosis Date JAMARCUS-1 4G/5G genotype PAST SURGICAL HISTORY Procedure Laterality Date FASCIOTOMY,ILIOTIBIAL,OPE N Bilateral Current Outpatient Medications Medication Sig bromocriptine (PARLODEL) 2.5 mg tablet 2.5 mg. 2 pills daily No current facility-administered medications for this visit. ALLERGIES No Known Allergies Social History Tobacco Use Smoking status: Never Smokeless tobacco: Never Vaping Use Vaping status: Never Used Substance Use Topics Alcohol use: Not Currently Drug use: Never ROS: See HIP PE: BP 124/80 Pulse 64 Temp (Src) 96.6 (Left Tympanic) Resp 12 Wt 136 lb (61.7kg) LMP 10/07/2024 Gen: AANDOX3, NAD, non-toxic appearing HEENT: PERRLA, EOMs intact b/l, nares without drainage, pharynx without erythema, exudate, lesions, or drainage. Uvula midline. Neck: No LAD, no thyromegaly, no meningismus. CV: RRR, no murmur Lungs: CTA b/l, no wheezing Skin: No rashes, lesions, or wounds on exposed skin. Facial acne mild No edema legs ASSESSMENT/PLAN: 1. Situational anxiety - ICD9: 300.09, ICD10: F41.8 (primary diagnosis) She is not interested in being on medication. Was on zoloft in the past with benefit Can consider therapy/counseling Needs to consider a job change as well, which was d/w her today 2. Encounter for screening examination for other mental health and behavioral disorders - ICD9: V79.8, ICD10: Z13.39 - ANXIETY SCREENING 3. Hyperprolactinemia (HCC) - ICD9: 253.1, ICD10: E22.1 (more content not included)... Normal [facility] Antithrombin Ag actual/george l IA (PPP) [Relative mass conc]on 08-27-2024 Antithrombin Ag IA Qn (PPP) 88 % Normal 80-120 [facility] Comment on above: Order Comment: Speckatya suazo Type: BLOOD SPECIMEN Ordering Facility: [facility] Address: [address] [place] [address] Performed By: #### 2 7812-7, PRCFUN #### [facility] CLIA [id number] [address] [place] [address] [place] BETA 2 GLYCOPROTEIN, IGGon 0 08-27-2024 Beta 2 glycoprotein 1 IgG IA Qn <9 Normal <20 [facility] Comment on above: Order Comment: Speci men Type: BLOOD SPECIMEN Ordering Facility: [facility] Address: [address] [place] [address] Result Comment: <20 SGU Negative 20-80 SGU Low Positive >80 SGU High Positive These results were obtained with the [employer] QUANTA Lite B2 GPI IgG TESS. B2 GPI IgG values obtained with different manufacturers' assay methods may not be used interchangeably. The magnitude of the reported IgG levels cannot be correlated to an endpoint titer. Performed By: #### C ARDIM, BETA2G, BETA2M, 5076-5, CARDIG #### [facility] CLIA [id number] [address] [place] [address] [place] BETA 2 GLYCOPROTEIN, IGMon 0 08-27-2024 Beta 2 glycoprotein 1 IgM IA Qn <9 Normal <20 [facility] Comment on above: Order Comment: Alexis suazo Type: BLOOD SPECIMEN Ordering Facility: [facility] Address: [address] [place] [address] Result Comment: <20 SMU Negative 20-80 SMU Low Positive >80 [facility]U High positive These results were obtained with the [employer] QUANTA Lite B2 GPI IgM TESS. B2 GPI IgM values obtained with different manufacturers' assay methods may not be used interchangeably. The magnitude of the reported IgM levels cannot be correlated to an endpoint titer. Performed By: #### C ARDIM, BETA2G, BETA2M, 5076-5, ASHLEY #### [facility] CLIA [id number] [address] [place] [address] [place] CARDIOLIPIN IGG ABSon 2024 Cardiolipin IgG IA Qn (S) <9.0 Normal <15.0 [facility] Comment on above: Order Comment: Alexis [facility] Type: BLOOD SPECIMEN Ordering Facility: [facility] Address: [address] [place] [address] Result Comment: <15 GPL Negative 15-20 GPL Indeterminate >20 GPL Positive The following results were obtained with the [employer] QUANTA Lite JORJE IgG III TESS. Cardiolipin IgG values obtained with the different manufacturers' assay methods may not be used interchangeably. The magnitude of the reported IgG levels cannot be correlated to an endpoint titer. Performed By: #### 2 7812-7, PRCFUN #### [facility] CLIA [id number] [address] [place] [address] [place] CARDIOLIPIN IGM ABSon 2024 Cardiolipin IgM IA Qn (S) 9.2 MPL Normal <12.5 [facility] Comment on above: Order Comment: Alexis [facility] Type: BLOOD SPECIMEN Ordering Facility: [facility] Address: [address] [place] [address] Result Comment: <12. 5 MPL Negative 12.5-20 MPL Indeterminate >20 MPL Positive The following results were obtained with the [employer] QUANTA Lite JORJE IgM III TESS. Cardiolipin IgM values obtained with the different manufacturers' assay methods may not be used interchangeably. The magnitude of the reported IgM levels cannot be correlated to an endpoint titer. ??? Performed By: #### 2 7812-7, PRCFUN #### [facility] CLIA [id number] [address] [place] [address] OF [facility] CNOVon 08-27-2024 CNOV Office Visit ([id number] ) ----- CARISSA TRIPATHI ([id number]) 2000 F Date Time Provider Department 08/27/24 8:00 AM JULI HARDY [id number] During your visit today, we recorded the following information about you: Pulse Blood pressure Weight Last Period 71/minute 105/66 62.2 kg 08/16/24 Juli Hardy MD 08/27/2024 9:20 AM Signed [facility] CONSULTATION Requested by: Dr. Sean Bond Reason for consultation: blood clotting disorder, hisotry Reporting: Note/evaluation from today sent to requesting provider via shared medical record. HPI: Ms. Carissa Tripathi is a 23 year old woman who is not currently with a history remarkable for the followin. History of blood clots - The patient had lower extremity blood clots following fasciotomies for treatment of compartment syndrome which resulted from surgery for a stress fractur. She was not treated with anticoagulation given that the clots were below the knee and concern for bleeding risk in the setting of her surgery. 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 Review of records on her phone shows that she was negative for Factor V Leiden but there is no testing for other inherited or acquired thrombophilias. She was told told that she should not take estrogen-containing OCPs. She was recently (with a subsequent early miscarriage) and did start lovenox upon learning of her . 2. Hyperprolactinemia - The patient was found to have hyperprolactinemia during evaluation of oligomenorrhea. She states that head imaging showed either that she does not have a prolactinoma or that it is so small that it can barely be seen. She is maintained on bromocriptine. PAST MEDICAL HISTORY Diagnosis Date JAMARCUS-1 4G/5G genotype PAST SURGICAL HISTORY Procedure Laterality Date FASCIOTOMY,ILIOTIBIAL,OPE N Bilateral FAMILY HISTORY Problem Relation Age of Onset Heart Attack Father 52 Cancer Maternal Grandfather 71 esophageal Heart Attack Paternal Grandmother Breast Cancer Paternal Grandmother 79 Heart Attack Paternal Grandfather 42 Social History Tobacco Use Smoking status: Never Smokeless tobacco: Never Vaping Use Vaping status: Never Used Substance Use Topics Alcohol use: Not Currently Drug use: Never ALLERGIES No Known Allergies OB History Gravida1 Para0 Term0 Preterm0 AB1 Living0 SAB1 IAB0 Ectopic0 Multiple0 Live Births0 IMPRESSION: 23 year old woman with: ACTIVE PROBLEM LIST History of Fasciotomy - 05/01/2024 Irregular Menses - 05/01/2024 Late Menarche - 05/01/2024 Clotting Disorder (Hcc) - 05/01/2024 Family History of Premature Cad - 05/01/2024 Acute Constipation - 05/01/2024 Hyperprolactinemia (Hcc) - 05/01/2024 1. History of thromboembolism in the setting of orthopedic surgery - Due to the thrombogenic nature of , patients with a history of venous thromboembolism (VTE) may have an increased risk of recurrence during . The risk of recurrence is influenced by the circumstances surrounding the original DVT. For example, women with transient risk factors at the time of DVT such as prolonged immobilization and major surgery are less likely to have a DVT recurrence compared to women whose DVT occurred without provocation. Estrogen-related risk factors such as oral contraceptives and at the time of initial DVT are associated with a higher risk of DVT recurrence during a subsequent . In the case of this patient, she had a clear risk factor at the time of her DVT -recent long distance air travel. The latest guidelines from ACOG recommend that for women in this scenario, a workup for inherited and acquired thrombophilia should be performed. If her workup is negative, i.e., she has no thrombophilia with history of previous single episode of venous thromboembolism with a transient risk factor that was not estrogen-related, surveillance without anticoagulation therapy is recommended. Furthermore, if her workup is negative, she is not at increased risk of adverse obstetrical outcomes. Heterozygosity for the MTHFR C677T polymorphism is found in about 5-10% of the general population. Contrary to previous beliefs, current data shows no association of MTHFR with thromboembolic events or adverse outcomes such as SAB, IUGR, or preeclampsia. I do recommend folic acid supplementation due to a potential impairment in folate metabolism and resultant increase in NTDs that may occur. I do not recommend anticoagulation for this indication. We discussed that while the JAMARCUS 4G/5G mutation has been associated with an increased tendency towards venous thromboembolism and later cardiovascular disease that it has not bee associated with adverse outcomes or a significantly increased risk o (more content not included)... Normal [facility] Cardiolipin IgA Ser IA-aCnco n 08-27-2024 Cardiolipin IgA IA Qn (S) <9.0 Normal <12.0 [facility] Comment on above: Order Comment: Alexis suazo Type: BLOOD SPECIMEN Ordering Facility: [facility] Address: [address] [place] [address] Result Comment: <12 APL Negative 12-20 APL Indeterminate >20 APL Positive The following results were obtained with the [employer] QUANTA Lite JORJE IgA III TESS. Cardiolipin IgA values obtained with the different manufacturers' assay methods may not be used interchangeably. The magnitude of the reported IgA levels cannot be correlated to an endpoint titer. Performed By: #### 2 7812-7, PRCFUN #### [facility] CLIA [id number] [address] [place], [place] [address] [place] [address] [place] LUPUS PANELon 08-27-2024 aPTT Coag (Bld) [Time] 36.7 s Normal 30.2-43.0 [facility] Comment on above: Order Comment: Alexis suazo Type: BLOOD SPECIMEN Ordering Facility: [facility] Address: [address] [place] [address] Result Comment: This test was developed, and its performance characteristics determined by the [facility] Department of Pathology and Laboratory Medicine. It has not been cleared or approved by the FDA. The [facility] Department Pathology and Laboratory Medicine is regulated under CLIA as qualified to perform high-complexity testing. This test is used for clinical purposes. It should not be regarded as investigational or for research. Performed By: #### L [id number], LUPPL #### [facility] CLIA [id number] [address] [place] [address] STATES OF [facility] aPTT Coag (Bld) [Time] 36.3 s Normal 31.5-38.3 [facility] Comment on above: Order Comment: Speci men Type: BLOOD SPECIMEN Ordering Facility: [facility] Address: [address] [place] [address] Result Comment: This test was developed, and its performance characteristics determined by the [facility] Department of Pathology and Laboratory Medicine. It has not been cleared or approved by the FDA. The [facility] of Pathology and Laboratory Medicine is regulated under CLIA as qualified to perform high-complexity testing. This test is used for clinical purposes. It should not be regarded as investigational or for research. Performed By: #### L [id number], LUPPL #### [facility] CLIA [id number] [address] [place] [address] STATES OF [facility] aPTT Coag (Bld) [Time] 31.8 s Normal 24.0-35.1 [facility] Comment on above: Order Comment: Speci men Type: BLOOD SPECIMEN Ordering Facility: [facility] Address: [address] [place] [address] Performed By: #### L [id number], LUPPL #### [facility] CLIA [id number] [address] [place] [address] [place] aPTT W excess hexagonal phase phospholipid Coag (PPP) [Time] 44.8 seconds Normal 34.0-51.8 [facility] Comment on above: Order Comment: Speci men Type: BLOOD SPECIMEN Ordering Facility: [facility] Address: [address] [place] [address] Performed By: #### L [id number], LUPPL #### [facility] CLIA [id number] [address] [place] [address] [place] Delta dRVVT Coag (PPP) [Time diff] 3.5 delta seconds Normal <7.1 [facility] Comment on above: Order Comment: Speci men Type: BLOOD SPECIMEN Ordering Facility: [facility] Address: [address] [place] [address] Performed By: #### L [id number], LUPPL #### [facility] CLIA [id number] [address] [place] [address] [place] dRVVT Coag (PPP) [Time] 28.0 s Low 32.0-45.7 [facility] Comment on above: Order Comment: Speci men Type: BLOOD SPECIMEN Ordering Facility: [facility] Address: [address] [place] [address] Performed By: #### L [id number], LUPPL #### [facility] CLIA [id number] [address] [place] [address] [place] dRVVT factor substitution immediately after 1:2 addition of normal plasma Coag (PPP) [Time] 30.3 seconds Low 32.0-45.7 [facility] Comment on above: Order Comment: Speci men Type: BLOOD SPECIMEN Ordering Facility: [facility] Address: [address] [place] [address] Performed By: #### L [id number], LUPPL #### [facility] CLIA [id number] [address] [place] [address] [place] dRVVT W excess hexagonal phase phospholipid actual/normal Coag (PPP) [Relative time] 41.3 seconds Normal 34.2-47.9 [facility] Comment on above: Order Comment: Speci men Type: BLOOD SPECIMEN Ordering Facility: [facility] Address: [address] [place] [address] Performed By: #### L [id number], LUPPL #### [facility] CLIA [id number] [address] [place] [address] [place] dRVVT/dRVVT.excess phospholipid Coag (PPP) [Ratio] 0.89 Normal <1.32 [facility] Comment on above: Order Comment: Speci men Type: BLOOD SPECIMEN Ordering Facility: [facility] Address: [address] [place] [address] Performed By: #### L [id number], LUPPL #### [facility] CLIA [id number] [address] [place] [address] [place] PLATELET NEUT 0.0 Seconds Normal <1.9 [facility] Comment on above: Order Comment: Speci men Type: BLOOD SPECIMEN Ordering Facility: [facility] Address: [address] [place] [address] Result Comment: This test was developed, and its performance characteristics determined by the [facility] Department of Pathology and Laboratory Medicine. It has not been cleared or approved by the FDA. The [facility] Department of Pathology and Laboratory Medicine is regulated under CLIA as qualified to perform high-complexity testing. This test is used for clinical purposes. It should not be regarded as investigational or for research. Performed By: #### L [id number], LUPPL #### [facility] CLIA [id number] [address] [place] [address] [place] Thrombin time Coag (PPP) [Time] <16.8 Normal <18.6 [facility] Comment on above: Order Comment: Speci men Type: BLOOD SPECIMEN Ordering Facility: [facility] Address: [address] [place] [address] Performed By: #### L [id number], LUPPL #### [facility] CLIA [id number] [address] [place] [address] [place] LUPUS PANEL INTERPon 025 Lupus anticoagulant (PPP) [Interp] Normal [facility] Comment on above: Order Comment: Speci men Type: BLOOD SPECIMEN Ordering Facility: [facility] Address: [address] [place] [address] Result Comment: No s ignificant abnormality - see comment below. Laboratory testing was performed to evaluate the presence of a lupus anticoagulant and antiphospholipid antibodies. Both the PT and APTT results are normal. The thrombin time and anti-Xa screen were normal. No heparin, anti-Xa or direct thrombin inhibitor drug effect is present. LUPUS ANTICOAGULANT STUDIES: There is no evidence for a lupus anticoagulant or other coagulation inhibitor at this time. A short DRVVT can be due to increased activation or lack of inactivation of coagulation factors within the common pathway. Recommend thrombophilia testing if clinically indicated. The criteria for the diagnosis of a Lupus Anticoagulant, as detailed by the Subcommittee on Lupus Anticoagulants and Anti-Phospholipid Antibodies of the Scientific and Standardization Committee of the International Society on Thrombosis and Haemostasis (ISTH), are the following: (1) A prolonged phospholipid-dependent clotting test (screening test); (2) Evidence for an inhibitor (1:1 mix of patient:normal plasma); (3) Evidence that the inhibitor is phospholipid dependent and (4) Exclusion of specific inhibitors (ie, fVIII inhibitors, direct thrombin inhibitors, or heparin). Thromb. Haemost. 74:1185 (1994). ANTIPHOSPHOLIPID ANTIBODY STUDIES: The IgG, IgM and IgA anticardiolipin antibody titers were all negative. Both the IgG and IgM Beta-2 Glycoprotein I antibody titers were negative. Antiphospholipid syndrome (APS) is present if at least one clinical criteria and one laboratory criteria are met. The clinical criteria for APS include the presence of vascular thrombosis or morbidity. The laboratory criteria for APS include positive testing for one of the following on two or more occasions, at least 12 weeks apart: (1) lupus anticoagulant; (2) anticardiolipin IgG or IgM in medium or high titer (>20 GPL or >20 MPL); (3) anti-beta 2 glycoprotein I IgG or IgM antibody. J. Thromb Haemost 4:295 (2006). THE FOLLOWING TESTS WERE ADDED AND ARE REPORTED SEPARATELY: APTT mixing study, Hexagonal phase phospholipid neutralization, DRVVT and PNP. Performed By: #### L [id number], LUPPL #### [facility] CLIA [id number] [address] Pathologist name Reviewed by Olamide Robertson M.D., Ph.D Normal [facility] Comment on above: Order Comment: Speci men Type: BLOOD SPECIMEN Ordering Facility: [facility] Address: [address] [place] [address] Performed By: #### L [id number], LUPPL #### [facility] CLIA [id number] [address] [place] [address] [place] PROTEIN C FUNCTon 08-27-2024 Protein C actual/normal Coag (PPP) [Relative time] 91 % Normal 76-147 [facility] Comment on above: Order Comment: Speci men Type: BLOOD SPECIMEN Ordering Facility: [facility] Address: [address] [place] [address] Performed By: #### 2 7812-7, PRCFUN #### [facility] CLIA [id number] [address] [place] [address] PROTEIN S CLOTTABLEon 2024 Coagulation factor X activated act Coag Qn (PPP) <0.10 Normal <0.10 [facility] Comment on above: Order Comment: Speci men Type: BLOOD SPECIMEN Ordering Facility: [facility] Address: [address] [place] [address] Result Comment: This test was developed, and its performance characteristics determined by the [facility] Department of Pathology and Laboratory Medicine. It has not been cleared or approved by the FDA. The [facility] Department of Pathology and Laboratory Medicine is regulated under CLIA as qualified to perform high-complexity testing. This test is used for clinical purposes. It should not be regarded as investigational or for research. Performed By: #### P RSCLT #### [facility] CLIA [id number] [address] [place] [address] OF [facility] Performed By: #### L [id number], LUPPL #### [facility] CLIA [id number] [address] [place] [address] [place] Protein S actual/normal Coag (PPP) [Relative time] 75 % Normal 59-152 [facility] Comment on above: Order Comment: Speci lakeisha Type: BLOOD SPECIMEN Ordering Facility: [facility] Address: [address] [place] [address] Performed By: #### P RSCLT #### [facility] CLIA [id number] [address] [place], [place] [address] [address] PROTHROMBIN GENE PCRon 08-27 PROTHROMBIN GENE MUTATION Normal [facility] Comment on above: Order Comment: Speci men Type: BLOOD SPECIMEN Ordering Facility: [facility] Address: [address] [place] [address] Result Comment: Prot hrombin Gene Mutation Laboratory Accession Number: [id number] Result: NORMAL Interpretation: The DNA sample is negative for the c.*97G>A variant (legacy name [id number]>A) in the 3' untranslated region of the Factor II (F2) gene. This result is not associated with an increased risk of thromboembolic disease. Thromboembolic disease is a multifactorial disorder and other causes are not excluded by this result. Methodology: Isolated Genomic DNA from the patient's blood specimen is evaluated for the c*97G>A ([id number]) variant of the F2 gene [RefSeq NM_000506.53;GRCh38/hg38] by multiplex polymerase chain reaction (PCR) followed by melting curve analysis. Limitations: This assay is designed to detect the c.*97G>A (72990W>A) variant in the F2 gene. Uncommon variants or single nucleotide polymorphisms may affect binding of probes and may rarely result in false negative, false positive or indeterminate results. This assay does not detect other disease-associated rare variants in F2 or other causes of thromboembolic disease. Disclaimer: This test was developed and its performance characteristics determined by [facility]'s Pathology and Laboratory Medicine Department. It has not been cleared or approved by the FDA. [facility]'s Pathology and Laboratory Medicine Department is regulated under CLIA as certified to perform high-complexity testing. This test is used for clinical purposes. It should not be regarded as investigational or for research. Test performed at [facility], [address] [place] [address]. CLIA Number: [id number] References: 1) Inheritied Thrombophilias in . ACOG Practice Bulletin. No. 197. [place] [employer]. Obsete Gynecol 2018;132:e18-34. 2) Lenard SR, Jonatan FR, Brii PH, and Lisset SRINIVASAN. A common genetic variation in the 3'-untranslated region of the prothrombin gene is associated with elevated plasma prothrombin levels and an increase in venous thrombosis. Blood 88:3698-703, 1995. 3) Kitty I, Celestine V, Stacey C, Shukri Bland. Prothrombin 52931I>T: 16 new cases, association with the 97120T>G polymorphism, and literature review. J Thromb Haemost. 2009;9:1585-7. Interpretation performed by Shankar Urias, PhD, [facility] Performed By: #### P TGEN #### [facility] CLIA [id number] [address] [place], [place] [address] [address] [place] PT panel Coag (PPP)on 2024 INR Coag (PPP) [Relative time] 1.0 {INR} Normal 0.9-1.3 [facility] Comment on above: Order Comment: Speci men Type: BLOOD SPECIMEN Ordering Facility: [facility] Address: [address] [place] [address] Result Comment: Caitlin min K Antagonist (VKA) Therapeutic Range: INR 2 to 3 (Target INR of 2.5) Note: For patients treated with VKA drugs, such as warfarin, the [place] [employer] 2012 Guideline recommends a therapeutic INR range of 2 to 3 (target INR of 2.5). This recommendation includes high-risk patients with antiphospholipid syndrome with previous arterial or venous thromboembolism, current-generation mechanical or bioprosthetic aortic heart valve replacement. Note: Patients with mechanical aortic valve replacement and additional risk factors for thromboembolic events (atrial fibrillation, previous thromboembolism, LV dysfunction, hypercoagulable conditions) or an older generation mechanical AVR (i.e., ball in-Cage) or any mechanical MVR should have a INR therapeutic range of 2.5 to 3.5 (target INR of 3). Elin GH, et al. Chest 2012, 141:7S-47S Shena RA, et al. [facility] 2017, 70: 252-289 Performed By: #### 3 4528-0, 85757-2 #### [facility] [id number] [address] [place] [address] [place] PT Coag (PPP) [Time] 11.5 s Normal 9.7-13.0 [facility] Comment on above: Order Comment: Speci men Type: BLOOD SPECIMEN Ordering Facility: [facility] Address: [address] [place] [address] Performed By: #### 3 4528-0, 48122-3 #### [facility] [id number] [address] [place] [address] [place] aPTT PPPon 08-27-2024 aPTT Coag (PPP) [Time] 29.6 s Normal 23.0-32.4 [facility] Comment on above: Order Comment: Speci men Type: BLOOD SPECIMEN Ordering Facility: [facility] Address: [address] [place] [address] Performed By: #### 3 4528-0, 50680-9 #### [facility] [id number] [address] [place] [address] [place] PROLACTIN 4465on 08-26-2024 PROLACTIN 10.0 ng/mL Normal 4.8-33.4 [facility] Comment on above: Order Comment: PT RE FUSED CALLIN GFOR A DIFFERENT ORDER PATIENT DOES NOT WANT PROGESTERONE.RANGLE Result Comment: PT R EFUSED CALLIN GFOR A DIFFERENT ORDER Performed at: - [facility] [id number] [place], [place] [id number] Weatherization Operations Manager: Terry Cantrell PhD, Phone: [phone] Performed By: #### L 4703.8510 #### [facility] [address] [place] [address]. [place], [address] CNPNon 08-24-2024 [facility][id number] ----- CARISSA TRIPATHI ([id number]) 2000 F Date Time Provider Department 08/24/24 ROBERTOJULI THOMPSON [id number] During your visit today, we recorded the following information about you: Catalina Martinez MA 08/24/2024 10:44 AM Signed Patient called and identified by name and Patient confirmed she is no longer . Carissa had a SAB at 5 1/2 weeks LMP was 08/16/2024. Patient is followed by [facility]ELOPER/Fertility Dr. Catherine Lennon at [facility]. Consult request for patient due to clotting disorder and hyperprolactinemia follows by Dr. Sean Bond. Currently taking progesterone 3 days after ovulation and bromocriptine(PARLODEL) 2.5 mg tablet- takes two 2.5mg tablet daily Appointment time, date and location confirmed with patient. Catalina Martinez MA Allergies As of Date: 08/24/2024 (No Known Allergies) Date Reviewed: 06/05/2016 Reviewed by: Catalina Beatty LPN - Fully Assessed Reason for Visit: Consult [502] Cmt: Preconception Prescriptions as of 08/24/2024 - bromocriptine (PARLODEL) 2.5 mg tablet 2.5 mg. 2 pills daily Problem List As Of Date 08/24/2024 Noted Resolved History of fasciotomy [Z98.890] 05/01/2024 Irregular menses [N92.6] 05/01/2024 Late menarche [E30.0] 05/01/2024 Clotting disorder (HCC) [D68.9] 05/01/2024 Family history of premature CAD [Z82.49] 05/01/2024 Acute constipation [K59.00] 05/01/2024 Hyperprolactinemia (HCC) [E22.1] 05/01/2024 Encounter Status:Closed by CATALINA MARTINEZ on 08/24/24 Normal [facility] hCG Titer Quant., Serumon HCG QUANT. 36 mIU/mL High <9 non-preg [facility] Comment on above: Order Comment: CHIQUI Sher RESULTS @[id number] Result Comment: Gest ational Age 0.2-1 Week: 5-50 mIU/mL 1-2 Weeks: 50-500 mIU/mL 2-3 Weeks: 100-5000 mIU/mL 3-4 Weeks: 500-10,000 mIU/mL 4-5 Weeks:1000-50,000 mIU/mL 5-6 Weeks: 10,000-100,000 mIU/mL 6-8 Weeks: 15,000-200,000 mIU/mL 2-3 Months:10,000-100,000 mIU/mL Performed By: #### L 700.8000 #### [facility] [address] [place], [address] Beta HCG ( test) Ql Ordered By: Catherine Lennon on 06-28-2024 Serum Test, Qualitative Negative [facility] HCG ( test) QlOrder ed By: Catherine Lennon on 06-28-2024 Human Chorionic Gonadotropin, Quant 36 mIU/mL High <9 [facility] Comment on above: Gestational Age0.2-1 Week: 5-50 mIU/mL1-2 Weeks: 50-500 mIU/mL2-3 Weeks: 100-5000 mIU/mL3-4 Weeks: 500-10,000 mIU/mL4-5 Weeks:1000-50,000 mIU/mL5-6 Weeks: 10,000-100,000 mIU/mL6-8 Weeks: 15,000-200,000 mIU/mL2-3 Months:10,000-100,000 mIU/mL ,Serum,hCG Quali.on 06-28-2024 HCG, SERUM QUAL Positive Normal [facility] Comment on above: Performed By: #### L 700.8000 #### [facility] [address] [place], [address] Transvaginal w/Preg USon Transvaginal w/Preg US [facility] Services [address] [place] [address] Transvaginal w/Preg US MR#: [id number] Acct: [id number] Name: CARISSA TRIPATHI Rep #: [id number] : 2000 23 From: Tremaine krishnan MD PCP: Dr. Sean Bond DO Status: REG CLI Study: Transvaginal w/Preg US Date of Exam: 06/28/24 Exam# [id number] Ordering Dr: Catherine Stafford MD PROCEDURE: TRANSVAGINAL W/PREG US REASON FOR EXAM: Threatened . Bleeding. COMPARISON: Comparison is made with prior study dated June 18, 2024. FINDINGS: Comments: LMP: May 02, 2024. Number of Gestational Sacs: Not visualized. Number of Fetuses: Not visualized. Yolk Sac: Not visualized. Placenta: Presently not well-visualized Uterine Abnormalities: Maternal uterus is unremarkable. Ovaries / Adnexa: 1.1 cm x 1.1 cm x 0.9 cm left ovarian follicle. US/Transvaginal w/Preg US IMPRESSION: No intrauterine gestation is seen at this time. Reading Location: [id number] CC: Dr. Sean Bond DO; Dr. Catherine Lennon MD Lotteries Agent: Signed Normal [facility] Transvaginal w/Preg USon Transvaginal w/Preg US [facility] Services [address] [place] [address] Transvaginal w/Preg US MR#: [id number] Acct: [id number] Name: CARISSA TRIPATHI Rep #: [id number] : 2000 F 23 From: Landry Renteria MD PCP: Dr. Sean Bond DO Status: REG CLI Study: Transvaginal w/Preg US Date of Exam: 06/18/24 Exam# [id number] Ordering Dr: Catherine Stafford MD EXAM: US First Trimester , Transabdominal and Transvaginal CLINICAL INDICATION: TECHNIQUE: Real-time transabdominal and transvaginal obstetrical ultrasound of the maternal pelvis and a first trimester with image documentation. Transvaginal imaging was used for better evaluation of the fetus and adnexa. COMPARISON: No relevant prior studies available. FINDINGS: GESTATION: Gestational sac 0.71 cm. This appears to be low-lying and complex. CRL not visualized. Yolk sac not visualized. PLACENTA/AMNIOTIC FLUID: Cannot be adequately evaluated due to the early gestational age. UTERUS/CERVIX: Unremarkable. No myometrial mass. The uterus measures 9.1 x 5.1 x 3.1 cm. OVARIES: Unremarkable. No mass. FREE FLUID: No free fluid. OTHER FINDINGS: Multiple attempts to call Dr Catherine Lennon were unsuccessful as documented by the mysql dba. US/Transvaginal w/Preg US IMPRESSION: Possible low-lying gestational sac corresponding to 5 weeks and 3 days gestation. heart tone or yolk sac not visualized at this time. This may be secondary to early or missed . Beta HCG on 04/12 was 2395 and on 06/15 was 2045. Repeat pelvic ultrasound in 10-14 days is recommended. Continue following serial beta HCG. Reading Location: [facility] CC: Dr. Sean Bond DO; Dr. Catherine Lennon MD Lotteries Agent: Signed Normal [facility] HCG ( test) QlOrder ed By: Catherine Lennon on 06-17-2024 Human Chorionic Gonadotropin, Quant 2045 mIU/mL High <4 [facility] Comment on above: hCG levels with Gest ational AgeGestational Age hCG mIU/mL (IU/L)0.2 - 1 week 5 - 501-2 weeks 50 - 5002-3 weeks 100 - 22440-9 weeks 500 - 144001-9 weeks 1000 - 185081-7 weeks 50054 - 100,0006-8 weeks 62783 - 200,0002-3 months 35373 - 100,000 hCG Titer Quant., Serumon HCG QUANT. 2045 mIU/mL High 1-3 [facility] Comment on above: Order Comment: PLEAS E CALL W RESULTS @[id number] Result Comment: hCG levels with Gestational Age Gestational Age hCG mIU/mL (IU/L) 0.2 - 1 week 5 - 50 1-2 weeks 50 - 500 2-3 weeks 100 - 5000 3-4 weeks 500 - 95807 4-5 weeks 1000 - 01822 5-6 weeks 37900 - 100,000 6-8 weeks 44379 - 200,000 2-3 months 01405 - 100,000 Performed By: #### L 700.8000 #### [facility] [address] [place], [place], [id number] URINE CULTURE [CCL]on 2024 Bacteria identified Cx Nom (U) URCUL See Results Below See Below CULTURE, URINE NORMAL UROGENITAL OLIVA 10,000 -<50,000 CFU/ml Normal urogenital oliva SOURCE: Urine (Nonspecific) [facility] Instant Information [address] [place] [address] Orlando Osorio III, M.D. [id number] SEND TO IC NO Normal [facility] Comment on above: Performed By: #### 2 92355 #### [facility],[address] [place] [address] PROGESTERONE 4317on 06-15-19 25 PROGESTERONE 7.6 ng/mL Normal . [facility] Comment on above: Order Comment: N Result Comment: Foll icular phase 0.1 - 0.9 Luteal phase 1.8 - 23.9 Ovulation phase 0.1 - 12.0 First trimester 11.0 - 44.3 Second trimester 25.4 - 83.3 Third trimester 58.7 - 214.0 Postmenopausal 0.0 - 0.1 Performed at: - [facility] [id number] Weatherization Operations Manager: Terry Cantrell PhD, Phone: [phone] Performed By: #### L 615.7717, L170.4516, W6133.8803 #### [facility] [address] [place], [place], [address] Bacteria Ur Culton 5 Bacteria identified Cx Nom (U) ORGANISM ID: 1 10,000 -<50,000 CFU/ml Normal urogenital oliva Normal [facility] Comment on above: Performed By: #### 6 30-4 ####[facility] [id number] [facility] [id number] [address] [place] Estradiolon 06-13-2024 ESTRADIOL 111.3 pg/mL Normal [facility] Comment on above: Result Comment: NORM AL REFERENCE RANGES FEMALE FOLLICULAR 21.4 - 164.8 pg/mL MID-CYCLE PEAK 49.9 - 367.2 pg/mL LUTEAL 40.2 - 259.0 pg/mL POST-MENOPAUSAL ON MHT <11.0 - 462.1 pg/mL NOT ON MHT <11.0 - 58.3 pg/mL MALE <11.0 - 52.5 pg/mL NOTE: [employer] HAS CONFIRMED THE DRUG FULVETRANT (FASLODEX) MAY CAUSE FALSELY ELEVATED ESTRADIOL RESULTS WHEN USING THIS TEST METHOD. IF PATIENT IS TAKING FULVESTRANT AN ALTERNATIVE METHOD SHOULD BE USED TO DETERMINE ESTRADIOL CONCENTRATION. Performed By: #### L 801.2600, L700.8000, L3300.1750 #### [facility] [address] [place], [address] Estradiol measurementOrdered By: Catherine Lennon on 06-13-2024 Estradiol (E2) Level 111.3 pg/mL [facility] Comment on above: NORMAL REFERENCE RAN GES FEMALE FOLLICULAR 21.4 - 164.8 pg/mL MID-CYCLE PEAK 49.9 - 367.2 pg/mL LUTEAL 40.2 - 259.0 pg/mL POST-MENOPAUSAL ON MHT <11.0 - 462.1 pg/mL NOT ON MHT <11.0 - 58.3 pg/mL MALE <11.0 - 52.5 pg/mL NOTE:[employer] HAS CONFIRMED THE DRUG FULVETRANT (FASLODEX) MAY CAUSE FALSELY ELEVATED ESTRADIOL RESULTS WHEN USING THIS TEST METHOD. IF PATIENT IS TAKING FULVESTRANT AN ALTERNATIVE METHOD SHOULD BE USED TO DETERMINE ESTRADIOL CONCENTRATION. HCG ( test) QlOrder ed By: Catherine Lennon on 06-13-2024 Human Chorionic Gonadotropin, Quant 2395 mIU/mL High <4 [facility] Comment on above: hCG levels with Gest ational AgeGestational Age hCG mIU/mL (IU/L)0.2 - 1 week 5 - 501-2 weeks 50 - 5002-3 weeks 100 - 59387-1 weeks 500 - 869684-6 weeks 1000 - 816134-1 weeks 46481 - 100,0006-8 weeks 54807 - 200,0002-3 months 92983 - 100,000 Quantitative serum progester one measurement by electrochemiluminescence immunoassay (Ordered By: Catherine Lennon on 06-13-2024 Progesterone Level 7.6 ng/mL . [facility] Comment on above: Follicular phase 0.1 - 0.9 Luteal phase 1.8 - 23.9 Ovulation phase 0.1 - 12.0 First trimester 11.0 - 44.3 Second trimester 25.4 - 83.3 Third trimester 58.7 - 214.0 Postmenopausal 0.0 - 0.1Performed at: [facility] [address] [id number] Director: Terry Cantrell PhD, Phone: [phone] hCG Titer Quant., Serumon HCG QUANT. 2395 mIU/mL [facility] 1-3 [facility] Comment on above: Result Comment: hCG levels with Gestational Age Gestational Age hCG mIU/mL (IU/L) 0.2 - 1 week 5 - 50 1-2 weeks 50 - 500 2-3 weeks 100 - 5000 3-4 weeks 500 - 74760 4-5 weeks 1000 - 70305 5-6 weeks 38352 - 100,000 6-8 weeks 52071 - 200,000 2-3 months 44469 - 100,000 Performed By: #### L 801.2600, L700.8000, L3300.1750 #### [facility] [address] [place], [place], [address] Earl 06-08-2024 LONNYN Telephone (OBGYF2) ----- CARISSA TRIPATHI ([id number]) 2000 F Date Time Provider Department 06/08/24 HISTORICAL OBGYF2 During your visit today, we recorded the following information about you: Kathie Lucio 06/08/2024 11:11 AM Signed Patient referral was sent for a preconception visit. Patient called and spoke to PSS team. Patient stated that she was now and her appt was changed. Called patient and has not been confirmed. Discussed with patient that an OB visit needs to be scheduled prior to MFM. Patient understands and will schedule OB visit. LMP is May 02. Allergies As of Date: 06/08/2024 (No Known Allergies) Date Reviewed: 06/05/2016 Reviewed by: Catalina Beatty LPN - Fully Assessed Prescriptions as of 06/08/2024 - bromocriptine (PARLODEL) 2.5 mg tablet 2.5 mg. 2 pills daily Problem List As Of Date 06/08/2024 Noted Resolved History of fasciotomy [Z98.890] 05/01/2024 Irregular menses [N92.6] 05/01/2024 Late menarche [E30.0] 05/01/2024 Clotting disorder (HCC) [D68.9] 05/01/2024 Family history of premature CAD [Z82.49] 05/01/2024 Acute constipation [K59.00] 05/01/2024 Hyperprolactinemia (HCC) [E22.1] 05/01/2024 Encounter Status:Closed by KATHIE LUCIO on 06/08/24 [facility] ----- CARISSA TRIPATHI ([id number]) 2000 F Date Time Provider Department 05/21/24 [facility] During your visit today, we recorded the following information about you: Sean Bond VeraDO 05/21/2024 7:46 AM Signed Please call patient and let her know that overall her labs are good. Her omega 3 levels could be a little higher- would increase these foods in her diet. Cook with olive oil and avocado oil. Limit seed oils otherwise. Increased healthy nuts and avocado and salmon and tuna as well Her vitamin d levels are low normal. Would increase her vitamin D3 supplement by extra 1000 international unit(s) a day Her vitamin B12 levels are low normal. Would increase her vitamin B12 by extra 500 mcg every other day or daily Her celiac comprehensive panel is Category 1 which means she is low risk for Celiac disease and her antibodies are negative which means she doesn't have celiac disease but still as a mild risk of not tolerating gluten. Sean Gamez Bond, Zora Hyman LPN 05/21/2024 9:40 AM Signed Pt. informed via my Chart. Allergies As of Date: 05/21/2024 (No Known Allergies) Date Reviewed: 06/05/2016 Reviewed by: Catailna Beatty LPN - Fully Assessed Prescriptions as of 05/21/2024 - bromocriptine (PARLODEL) 2.5 mg tablet 2.5 mg. 2 pills daily Problem List As Of Date 05/21/2024 Noted Resolved History of fasciotomy [Z98.890] 05/01/2024 Irregular menses [N92.6] 05/01/2024 Late menarche [E30.0] 05/01/2024 Clotting disorder (HCC) [D68.9] 05/01/2024 Family history of premature CAD [Z82.49] 05/01/2024 Acute constipation [K59.00] 05/01/2024 Hyperprolactinemia (HCC) [E22.1] 05/01/2024 Encounter Status:Closed by ZORA MARIE LPN on 05/21/24 Normal [facility] Earl 05-12-2024 LONNYN Telephone (FAMPWS) ----- CARISSA TRIPATHI ([id number]) 2000 F Date Time Provider Department 05/12/24 SEAN BOND During your visit today, we recorded the following information about you: Sean Bond DO 05/12/2024 9:20 AM Signed Please inform patient that her lactose tolerance testing is ABNORMAL and she is definitely lactose intolerant. Would benefit from avoiding lactose rich dairy foods and doing lactose free or reduced exposure. DO Saul Magallon Susan LPN 05/12/2024 9:36 AM Signed Pt. informed via My Chart. Allergies As of Date: 05/12/2024 (No Known Allergies) Date Reviewed: 06/05/2016 Reviewed by: Catalina Beatty LPN - Fully Assessed Prescriptions as of 05/12/2024 - bromocriptine (PARLODEL) 2.5 mg tablet 2.5 mg. 2 pills daily Problem List As Of Date 05/12/2024 Noted Resolved History of fasciotomy [Z98.890] 05/01/2024 Irregular menses [N92.6] 05/01/2024 Late menarche [E30.0] 05/01/2024 Clotting disorder (HCC) [D68.9] 05/01/2024 Family history of premature CAD [Z82.49] 05/01/2024 Acute constipation [K59.00] 05/01/2024 Hyperprolactinemia (HCC) [E22.1] 05/01/2024 Encounter Status:Closed by ZORA MARIE LPN on 05/12/24 [facility] (ALANAWS[facility] ----- CARISSA TRIPATHI ([id number]) 2000 F Date Time Provider Department 05/11/24 8:45 AM [place] NURSE ALANAWS During your visit today, we recorded the following information about you: Charlotte Samayoa LPN 05/11/2024 8:52 AM Signed Patient presents for Lactose Intolerance testing. Baseline lab levels completed at lab and Lactose (Lactose Monohydrate Powder 50grams in 400mL water) administered to patient at 8:39am. Tolerated well. LOT # [id number] EXP 05/24/2026 Charlotte Samayoa LPN Allergies As of Date: 05/11/2024 (No Known Allergies) Date Reviewed: 06/05/2016 Reviewed by: Catalina Beatty LPN - Fully Assessed Reason for Visit: Lactose Tolerance Test [Other] Primary Visit Diagnosis:Acute constipation [K59.00] Prescriptions as of 05/11/2024 - bromocriptine (PARLODEL) 2.5 mg tablet 2.5 mg. 2 pills daily Problem List As Of Date 05/11/2024 Noted Resolved History of fasciotomy [Z98.890] 05/01/2024 Irregular menses [N92.6] 05/01/2024 Late menarche [E30.0] 05/01/2024 Clotting disorder (HCC) [D68.9] 05/01/2024 Family history of premature CAD [Z82.49] 05/01/2024 Acute constipation [K59.00] 05/01/2024 Hyperprolactinemia (HCC) [E22.1] 05/01/2024 Encounter Status:Closed by CHARLOTTE SAMAYOA on 05/11/24 Normal [facility] LACTOSE 120 MINon 05-11-2024 Glucose 2 Hr post Unsp challenge [Mass/Vol] 79 mg/dL Normal See Comment [facility] Comment on above: Order Comment: Speci men Type: BLOOD SPECIMENOrdering Facility: [facility] Address: [address] [place] [address] Result Comment: An i ncrease of <20 mg/dL of glucose from the fasting level with corresponding gastrointestinal symptoms is consistent with lactose deficiency. Performed By: #### G [id number] ####[facility] LABCLIA [id number] [place] [address] [place] LACTOSE 30 MINon 05-11-2024 Glucose 30 Min post Unsp challenge [Mass/Vol] 96 mg/dL Normal [facility] Comment on above: Order Comment: Speci men Type: BLOOD SPECIMENOrdering Facility: [facility] Address: [address] [place] [address] Performed By: #### L [id number] ####[facility]CLIA [id number] [place] [address] [place] LACTOSE 60 MINon 05-11-2024 Glucose 1 Hr post Unsp challenge [Mass/Vol] 86 mg/dL Normal [facility] Comment on above: Order Comment: Speci men Type: BLOOD SPECIMENOrdering Facility: [facility] Address: [address] [place] [address] Performed By: #### L [id number] ####[facility]CLIA [id number] [place] [address] [place] LACTOSE 90 MINon 05-11-2024 Glucose 1.5 Hr post Unsp challenge [Mass/Vol] 83 mg/dL Normal [facility] Comment on above: Order Comment: Speci men Type: BLOOD SPECIMENOrdering Facility: [facility] Address: [address] [place] [address] Performed By: #### L [id number] ####[facility]CLIA [id number] [place] [address] [place] LACTOSE FASTINGon 05-11-2024 Glucose post fast [Mass/Vol] 90 mg/dL Normal 74-99 [facility] Comment on above: Order Comment: Speci men Type: BLOOD SPECIMENOrdering Facility: [facility] Address: [address] [place] [address] Performed By: #### L [id number] ####[facility] LABCLIA [id number] [place] [address] [place] 25(OH)D3 SerPl-mCncon 2024 25-hydroxyvitamin D3 [Mass/Vol] 32.2 ng/mL Normal 31.0-80.0 [facility] Comment on above: Order Comment: Speci men Type: BLOOD SPECIMENOrdering Facility: [facility] Address: [address] [place] [address] Result Comment: Clas sification of 25 [place] Vitamin D status: Deficiency/Insufficiency: < or = 30 ng/ml. Sufficiency/Optimal Levels: 31-80 ng/mL Toxicity: > 100 ng/mL. Test performed by chemiluminescent immunoassay. Performed By: #### 1 989-3, 53702-6 ####[facility] LABIA [id number] [place] [address] [place] APOLIPOPROTEIN A+Bon 025 Apolipoprotein A-I [Mass/Vol] 157 mg/dL Normal >124 [facility] Comment on above: Order Comment: Speci men Type: BLOOD SPECIMENOrdering Facility: [facility] Address: [address] [place] [address] Performed By: #### 2 458-8, 1985-12, APOAB ####[facility] LABIA [id number] [place] [address] [place] Apolipoprotein B [Mass/Vol] 69 mg/dL Normal <90 [facility] Comment on above: Order Comment: Speci men Type: BLOOD SPECIMENOrdering Facility: [facility] Address: [address] [place] [address] Result Comment: Mode rate Risk: 90-129 mg/dL High Risk: >129 mg/dL Performed By: #### 2 458-8, 1985-12, APOAB ####[facility] [id number] [place] [address] [place] APOLIPOPROTEIN B/A-1 RATIO 0.4 Normal <0.6 [facility] Comment on above: Order Comment: Speci men Type: BLOOD SPECIMENOrdering Facility: [facility] Address: [address], [place] [address] Result Comment: Mode rate Risk: 0.6-0.8 High Risk: >0.8 Performed By: #### 2 458-8, 1985-12, APOAB ####[facility] LABCLIA [id number] [place] [address] [place] C peptide SerPl-mCncon 05-04 C peptide [Mass/Vol] 2.5 ng/mL Normal 1.1-4.4 [facility] Comment on above: Order Comment: Speci men Type: BLOOD SPECIMENOrdering Facility: [facility] Address: [address] [place] [address] Performed By: #### 2 458-8, 1985-12, APOAB ####[facility] LABCLIA [id number] [place] [address] [place] CBC W Auto Differential pane l (Bld)on 05-04-2024 Basophils (Bld) [#/Vol] 10*3/uL Normal <0.11 [facility] Comment on above: Order Comment: Speci men Type: BLOOD SPECIMENOrdering Facility: [facility] Address: [address] [place] [address] Performed By: #### 5 7021-8 ####[facility] LABCLIA [id number] [address] [place] Basophils/100 WBC (Bld) 0.2 % Normal C [facility] Comment on above: Order Comment: Speci men Type: BLOOD SPECIMENOrdering Facility: [facility] Address: [address] [place] [address] Performed By: #### 5 7021-8 ####[facility] LABIA [id number] [address] [place] Differential cell count method Nom (Bld) Auto Normal [facility] Comment on above: Order Comment: Speci men Type: BLOOD SPECIMENOrdering Facility: [facility] Address: [address] [place] [address] Performed By: #### 5 7021-8 ####[facility] LABCLIA [id number] [place] [address] [place] Eosinophils (Bld) [#/Vol] 0.10 10*3/uL Normal <0.46 [facility] Comment on above: Order Comment: Speci men Type: BLOOD SPECIMENOrdering Facility: [facility] Address: [address] [place] [address] Performed By: #### 5 7021-8 ####[facility] LABCLIA [id number] [place] [address] [place] Eosinophils/100 WBC (Bld) 2.5 % Normal [facility] Comment on above: Order Comment: Speci men Type: BLOOD SPECIMENOrdering Facility: [facility] Address: [address] [place] [address] Performed By: #### 5 7021-8 ####[facility] LABCLIA [id number] [place] [address] [place] Erythrocyte distribution width (RBC) [Ratio] 12.0 % Normal 11.5-15.0 [facility] Comment on above: Order Comment: Speci men Type: BLOOD SPECIMENOrdering Facility: [facility] Address: [address] [place] [address] Performed By: #### 5 7021-8 ####[facility] LABCLIA [id number] [place] [address] [place] Hematocrit (Bld) [Volume fraction] 39.2 % Normal 36.0-46.0 [facility] Comment on above: Order Comment: Speci men Type: BLOOD SPECIMENOrdering Facility: [facility] Address: [address] [place] [address] Performed By: #### 5 7021-8 ####[facility] LABCLIA [id number] [place] [address] [place] Hemoglobin (Bld) [Mass/Vol] 13.0 g/dL Normal 11.5-15.5 [facility] Comment on above: Order Comment: Speci men Type: BLOOD SPECIMENOrdering Facility: [facility] Address: [address] [place] [address] Performed By: #### 5 7021-8 ####[facility] LABCLIA [id number] [place] [address] [place] Immature granulocytes (Bld) [#/Vol] 10*3/uL Normal <0.10 [facility] Comment on above: Order Comment: Speci men Type: BLOOD SPECIMENOrdering Facility: [facility] Address: [address] [place] [address] Performed By: #### 5 7021-8 ####[facility] LABCLIA [id number] [place] [address] [place] Immature granulocytes/100 WBC (Bld) 0.2 % Normal [facility] Comment on above: Order Comment: Speci men Type: BLOOD SPECIMENOrdering Facility: [facility] Address: [address] [place] [address] Performed By: #### 5 7021-8 ####[facility] LABCLIA [id number] [place] [address] [place] Lymphocytes (Bld) [#/Vol] 1.09 10*3/uL Normal 1.00-4.00 [facility] Comment on above: Order Comment: Speci men Type: BLOOD SPECIMENOrdering Facility: [facility] Address: [address] [place] [address] Performed By: #### 5 7021-8 ####[facility] LABCLIA [id number] [place] [address] [place] Lymphocytes/100 WBC (Bld) 26.9 % Normal [facility] Comment on above: Order Comment: Speci men Type: BLOOD SPECIMENOrdering Facility: [facility] Address: [address] [place] [address] Performed By: #### 5 7021-8 ####[facility] LABIA [id number] [place] [address] [place] MCH (RBC) [Entitic mass] 30.0 pg Normal 26.0-34.0 [facility] Comment on above: Order Comment: Speci men Type: BLOOD SPECIMENOrdering Facility: [facility] Address: [address] [place] [address] Performed By: #### 5 7021-8 ####[facility] [id number] [place] [address] [place] MCHC (RBC) [Mass/Vol] 33.2 g/dL Normal 30.5-36.0 [facility] Comment on above: Order Comment: Speci men Type: BLOOD SPECIMENOrdering Facility: [facility] Address: [address] [place] [address] Performed By: #### 5 7021-8 ####[facility] [id number] [place] [address] [place] MCV (RBC) [Entitic vol] 90.5 fL Normal 80.0-100.0 [facility] Comment on above: Order Comment: Speci men Type: BLOOD SPECIMENOrdering Facility: [facility] Address: [address] [place] [address] Performed By: #### 5 7021-8 ####[facility]UN[facility] [id number] [place] [address] [place] Monocytes (Bld) [#/Vol] 0.30 10*3/uL Normal <0.87 [facility] Comment on above: Order Comment: Speci men Type: BLOOD SPECIMENOrdering Facility: [facility] Address: [address] [place] [address] Performed By: #### 5 7021-8 ####[facility]UN[facility] [id number] [place] [id number] [place] Monocytes/100 WBC (Bld) 7.4 % Normal [facility] Comment on above: Order Comment: Speci men Type: BLOOD SPECIMENOrdering Facility: [facility] Address: [address] [place] [address] Performed By: #### 5 7021-8 ####[facility] LABCLIA [id number] [place] [address] [place] Neutrophils (Bld) [#/Vol] 2.54 10*3/uL Normal 1.45-7.50 [facility] Comment on above: Order Comment: Speci men Type: BLOOD SPECIMENOrdering Facility: [facility] Address: [address] [place] [address] Performed By: #### 5 7021-8 ####[facility] LABCLIA [id number] [place] [address] [place] Neutrophils/100 WBC (Bld) 62.8 % Normal [facility] Comment on above: Order Comment: Speci men Type: BLOOD SPECIMENOrdering Facility: [facility] Address: [address] [place] [address] Performed By: #### 5 7021-8 ####[facility] LABCLIA [id number] [place] [address] [place] Nucleated RBC (Bld) [#/Vol] 10*3/uL Normal <0.01 [facility] Comment on above: Order Comment: Speci men Type: BLOOD SPECIMENOrdering Facility: [facility] Address: [address] [place] [address] Performed By: #### 5 7021-8 ####[facility] LABCLIA [id number] [place] [address] [place] Nucleated RBC/100 WBC (Bld) [Ratio] 0.0 /100 WBC Normal [facility] Comment on above: Order Comment: Speci men Type: BLOOD SPECIMENOrdering Facility: [facility] Address: [address] [place] [address] Performed By: #### 5 7021-8 ####[facility] LABCLIA [id number] [place] [address] [place] Platelet mean volume (Bld) [Entitic vol] 11.0 fL Normal 9.0-12.7 [facility] Comment on above: Order Comment: Speci men Type: BLOOD SPECIMENOrdering Facility: [facility] Address: [address] [place] [address] Performed By: #### 5 7021-8 ####[facility] LABCLIA [id number] [place] [address] [place] Platelets (Bld) [#/Vol] 194 10*3/uL Normal 150-400 [facility] Comment on above: Order Comment: Speci men Type: BLOOD SPECIMENOrdering Facility: [facility] Address: [address] [place] [address] Performed By: #### 5 7021-8 ####[facility] LABCLIA [id number] [place] [address] [place] RBC (Bld) [#/Vol] 4.33 10*6/uL Normal 3.90-5.20 [facility] Comment on above: Order Comment: Speci men Type: BLOOD SPECIMENOrdering Facility: [facility] Address: [address] [place] [address] Performed By: #### 5 7021-8 ####[facility] LABCLIA [id number] [place] [address] [place] WBC (Bld) [#/Vol] 4.05 10*3/uL Normal 3.70-11.00 [facility] Comment on above: Order Comment: Speci men Type: BLOOD SPECIMENOrdering Facility: [facility] Address: [address] [place] [address] Performed By: #### 5 7021-8 ####[facility] LABCLIA [id number] [place] [address] [place] C[employer]OC HLA-DQ GENOTYPE on 05-04-2024 CELIAC CATEGORY Category 1 Normal [facility] Comment on above: Order Comment: Speci men Type: BLOOD SPECIMENOrdering Facility: [facility] Address: [address] [place] [address] [place] [address] Result Comment: CATEGORY DQ HAPLOTYPE RELATIVE RISK Category 7 DQ2.2 AND DQ2.5 Extremely High Category 7 DQ2.5 AND DQ2.5 Extremely High Category 6 DQ2.2 AND DQA1*05, DQB1*03:01 Very High Category 5 DQ2.2 AND DQ8 Very High Category 5 DQ2.5 AND DQ8 Very High Category 4 DQ8 AND DQ8 High Category 3 DQ2.5 AND DQA1*05, DQB1*03:01 High Category 3 DQ2.5 AND DQA1*02:01, DQB1*03:03 High Category 3 DQ2.5 AND DQA1*03, DQB1*02 High Category 3 DQ2.5 AND OTHER LOW RISK ALLELE High Category 3 DQ2.2 AND DQA1*05, DQB1*03:03 High Category 2 DQ8 AND OTHER LOW RISK ALLELE Moderate Category 1 DQ2.2 AND OTHER LOW RISK ALLELE Low Category 0 NEGATIVE FOR DQ2.2 Negative Category 0 NEGATIVE FOR DQ2.5 Negative Category 0 NEGATIVE FOR DQ8 Negative DQ2.2 = DQA1*02:01, DQB1*02:02 DQ2.5 = DQA1*05, DQB1*02:01 DQ8 = DQA1*03, DQB1*03:02 The identification of one of these HLA-DQ genotypes is not, by itself, sufficient for the diagnosis of celiac disease, since both DQ2 and DQ8 are relatively common in the general population. The strongest reported HLA associations with celiac disease include DQ2 (DQ2.5 or DQA1*05-DQB1*02:01 & DQA2.2 or DQA1*02:01-DQB1*02:02) and DQ8 (DQA1*03:01/DQB1*03:02). This test is useful for family members of celiac patients and patients with negative serology results. This testing can rule out celiac disease with high negative predictive value (NPV) of 95-100% depending on the ethnic background. In cases of an ambiguous HLA allele assignment where multiple rare alleles cannot be excluded, the most common HLA allele is reported. References: 1. Stephanie Gamez, Richard Hagan, Shireen Bland, et al. Cost-effective HLA typing with tagging SNPs predicts celiac disease risk haplotypes in the [place]vian, Pashto and Spanish populations. Immunogenetics. 2009 Jul;61(4):247-56. 2. Shelly BRO. Celiac disease: dissecting a complex inflammatory disorder. Monica Rev Immunol. 2002 Dec;2(9):647-55. 3. Matthew E, Stefan HS, Cecile GARCIA, et al. Risk of pediatric celiac disease according to HLA haplotype and country. N Engl J Med. 2014 ;371(1):42-9. HLA typing performed by PCR-RSSOP and/or NGS. This test was developed and its performance characteristics determined by [employer]. The test has not been cleared or approved by the [place] FDA. However, FDA approval was not necessary since this lab is certified under CLIA for high complexity testing. Test performed by: [employer], [address] [place] [address]., [place] [address]. CLIA [id number]. Performed By: #### C OLAF ####[facility] [id number] [place] [address] [facility] [place] CELIAC RISK HAPLOTYPE Positive Normal [facility] Comment on above: Order Comment: Speci men Type: BLOOD SPECIMENOrdering Facility: [facility] Address: [address] [place] [address] Performed By: #### C OLAF ####[facility] [id number] [address] [place] HLA-DQA1 GENOTYPE HLA-DQA1*: 02:01, 01 Normal [facility] Comment on above: Order Comment: Speci men Type: BLOOD SPECIMENOrdering Facility: [facility] Address: [address] [place] [address] Performed By: #### C OLAF ####[facility] [id number] [place] [address] [place] HLA-DQB1 GENOTYPE HLA-DQB1*: 02:02, 05 Normal [facility] Comment on above: Order Comment: Alexis suazo Type: BLOOD SPECIMENOrdering Facility: [facility] Address: [address] [place] [address] Performed By: #### C OLAF ####[facility] [id number] [address] CELIAC SCREENon 05-04-2024 GLIAD DEAMIDATED IGA QUAL Negative Normal Negative, Test not Indicated [facility] Comment on above: Order Comment: Alexis suazo Type: BLOOD SPECIMENOrdering Facility: [facility] Address: [address] [place] [address] Result Comment: This is used as an aid in diagnosis of celiac disease. Clinical correlation is required. The following results were obtained with an [employer] Lite Gliadin IgA TESS Gliadin. Gliadin IgA values obtained with different manufacturers' assay methods may not be used interchangeably. The magnitude of the reported IgA levels cannot be correlated to an endpoint titer. Performed By: #### L [id number] ####[facility] LABCLIA [id number] [address] [place] Gliadin peptide IgA Qn (S) 2 Units Normal <20 [facility] Comment on above: Order Comment: Alexis suazo Type: BLOOD SPECIMENOrdering Facility: [facility] Address: [address] [place] [address] Performed By: #### L [id number] ####[facility] LABCLIA [id number] [address] [place] INTERPRETATION No serological evide nce of celiac disease, however, if celiac disease is clinically suspected and patient is not on gluten-free diet, histological diagnosis may be considered. HLA testing may help with risk assessment. Normal [facility] Comment on above: Order Comment: Alexis suazo Type: BLOOD SPECIMENOrdering Facility: [facility] Address: [address] [place] [address] Performed By: #### L [id number] ####[facility] LABCLIA [id number] [place] [address] [place] TRANSGLUTAMINASE IGA ABS INTERPRETATION Negative Normal Negative [facility] Comment on above: Order Comment: Speci men Type: BLOOD SPECIMENOrdering Facility: [facility] Address: [address] [place] [address] Result Comment: The following results were obtained with [employer] R h-tTG IgA TESS.???R h-tTG IgA values obtained with different manufacturers' assay methods may not be used interchangeably. The magnitude of the reported IgA levels cannot be corelated to an endpoint???concentration. This is used as an aid in diagnosis of celiac disease. Clinical correlation is required. Performed By: #### L [id number] ####[facility] LABIA [id number] [place] [address] [place] tTG IgA Qn (S) <2 Normal <4 [facility] Comment on above: Order Comment: Speci men Type: BLOOD SPECIMENOrdering Facility: [facility] Address: [address] [place] [address] Performed By: #### L [id number] ####[facility] LABIA [id number] [place] [address] [place] Comprehensive metabolic 2000 panelon 05-04-2024 Albumin [Mass/Vol] 4.5 g/dL Normal 3.9-4.9 [facility] Comment on above: Order Comment: Speci men Type: BLOOD SPECIMENOrdering Facility: [facility] Address: [address] [place] [address] Performed By: #### 2 4323-8, 64515-4, DHEAS, 3051-0 ####[facility] LABIA [id number] [place] [address] [place] ALP [Catalytic activity/Vol] 34 U/L Normal 34-123 [facility] Comment on above: Order Comment: Speci men Type: BLOOD SPECIMENOrdering Facility: [facility] Address: [address] [place] [address] Performed By: #### 2 4323-8, 19788-5, DHEAS, 3051-0 ####[facility] LABIA [id number] [place] [address] [place] ALT [Catalytic activity/Vol] 19 U/L Normal 7-38 [facility] Comment on above: Order Comment: Speci men Type: BLOOD SPECIMENOrdering Facility: [facility] Address: [address] [place] [address] Performed By: #### 2 4323-8, 54082-5, DHEAS, 3051-0 ####[facility] LABIA [id number] [place] [address] [place] Anion gap [Moles/Vol] 14 mmol/L Normal 8-15 [facility] Comment on above: Order Comment: Speci men Type: BLOOD SPECIMENOrdering Facility: [facility] Address: [address] [place] [address] Performed By: #### 2 4323-8, 23583-7, DHEAS, 3051-0 ####[facility] LABIA [id number] [place] [address] [place] AST [Catalytic activity/Vol] 18 U/L Normal 13-35 [facility] Comment on above: Order Comment: Speci men Type: BLOOD SPECIMENOrdering Facility: [facility] Address: [address] [place] [address] Performed By: #### 2 4323-8, 93284-7, DHEAS, 3051-0 ####[facility] LABIA [id number] [place] [address] [place] Bilirubin [Mass/Vol] 0.4 mg/dL Normal 0.2-1.3 [facility] Comment on above: Order Comment: Speci men Type: BLOOD SPECIMENOrdering Facility: [facility] Address: [address] [place] [address] Performed By: #### 2 4323-8, 97516-5, DHEAS, 3051-0 ####[facility] LABIA [id number] [address] [address] [place] Calcium [Mass/Vol] 9.5 mg/dL Normal 8.5-10.2 [facility] Comment on above: Order Comment: Speci men Type: BLOOD SPECIMENOrdering Facility: [facility] Address: [address] [place] [address] Performed By: #### 2 4323-8, 05746-7, DHEAS, 3051-0 ####[facility] LABIA [id number] [place] [address] [place] Chloride [Moles/Vol] 106 mmol/L Normal 98-107 [facility] Comment on above: Order Comment: Speci men Type: BLOOD SPECIMENOrdering Facility: [facility] Address: [address] [place] [address] Performed By: #### 2 4323-8, 97111-8, DHEAS, 3051-0 ####[facility] [id number] [place] [address] [place] CO2 [Moles/Vol] 21 mmol/L Low 22-30 [facility] Comment on above: Order Comment: Speci men Type: BLOOD SPECIMENOrdering Facility: [facility] Address: [address] [place] [address] Performed By: #### 2 4323-8, 92393-2, DHEAS, 3051-0 ####[facility] LABIA [id number] [address] [address] [place] Creatinine [Mass/Vol] 0.81 mg/dL Normal 0.58-0.96 [facility] Comment on above: Order Comment: Speci men Type: BLOOD SPECIMENOrdering Facility: [facility] Address: [address] [place] [address] Performed By: #### 2 4323-8, 77578-8, DHEAS, 3051-0 ####[facility] LABIA [id number] [place] [address] [place] Creatinine and Glomerular filtration rate.predicted panel (S/P/Bld) 103 mL/min/1.73m??? Normal >=60 [facility] Comment on above: Order Comment: Alexis lakeisha Type: BLOOD SPECIMENOrdering Facility: [facility] Address: [address] [place] [address] Result Comment: Lesly mated Glomerular Filtration Rate (eGFR) is calculated using the 2020 CKD-EPI creatinine equation. This equation utilizes serum creatinine, sex, and age as parameters. The creatinine assay has traceable calibration to isotope dilution-mass spectrometry. Refer to KDIGO guidelines for clinical interpretation. In patients with unstable renal function, e.g. those with acute kidney injury, the eGFR may not accurately reflect actual GFR. Performed By: #### 2 4323-8, 57351-3, DHEAS, 3051-0 ####[facility] LABIA [id number] [place] [address] [place] Glucose [Mass/Vol] 87 mg/dL Normal 74-99 [facility] Comment on above: Order Comment: Alexis suazo Type: BLOOD SPECIMENOrdering Facility: [facility] Address: [address] [place] [address] Result Comment: The [place] [employer] (ADA) provides guidance for cutoff values for fasting glucose and random glucose. The ADA defines fasting as no caloric intake for at least 8 hours. Fasting plasma glucose results between 100 to 125 mg/dL indicate increased risk for diabetes (prediabetes). Fasting plasma glucose results greater than or equal to 126 mg/dL meet the criteria for diagnosis of diabetes. In the absence of unequivocal hyperglycemia, results should be confirmed by repeat testing. In a patient with classic symptoms of hyperglycemia or hyperglycemic crisis, random plasma glucose results greater than or equal to 200 mg/dL meet the criteria for diagnosis of diabetes. Reference: Standards of Medical Care in Diabetes 2016, [place] [employer]. Diabetes Care. 2016.39(Suppl 1). Performed By: #### 2 4323-8, 41056-9, DHEAS, 3051-0 ####[facility] LABCLIA [id number] [address] [address] [place] Potassium [Moles/Vol] 4.0 mmol/L Normal 3.7-5.1 [facility] Comment on above: Order Comment: Speci men Type: BLOOD SPECIMENOrdering Facility: [facility] Address: [address] [place] [address] Performed By: #### 2 4323-8, 21662-3, DHEAS, 3051-0 ####[facility] LABCLIA [id number] [address] [address] [place] Protein [Mass/Vol] 6.9 g/dL Normal 6.3-8.0 [facility] Comment on above: Order Comment: Speci men Type: BLOOD SPECIMENOrdering Facility: [facility] Address: [address] [place] [address] Performed By: #### 2 4323-8, 76518-6, DHEAS, 3051-0 ####[facility] LABIA [id number] [address] [address] [place] Sodium [Moles/Vol] 141 mmol/L Normal 136-144 [facility] Comment on above: Order Comment: Speci men Type: BLOOD SPECIMENOrdering Facility: [facility] Address: [address] [place], [place] [address] Performed By: #### 2 4323-8, 81979-0, DHEAS, 3051-0 ####[facility] LABIA [id number] [address] [address] [place] Urea nitrogen [Mass/Vol] 12 mg/dL Normal 7-21 [facility] Comment on above: Order Comment: Speci men Type: BLOOD SPECIMENOrdering Facility: [facility] Address: [address] [place], [place] [address] Performed By: #### 2 4323-8, 13351-3, DHEAS, 3051-0 ####[facility] LABCLIA [id number] [place] [address] [place] DHEA-S BLDon 05-04-2024 DHEA-S [Mass/Vol] 157.3 ug/dL Normal 98.8-340.0 [facility] Comment on above: Order Comment: Speci men Type: BLOOD SPECIMENOrdering Facility: [facility] Address: [address] [place] [address] Result Comment: Refe rence ranges are age and gender specific. For additional information, reference range tables can be found in the laboratory test directory. The normal values are based on the following source: Dehydroepiandrosterone sulfate (DHEA S) [package insert V 17.0 German]. [facility], [place], [place]: November 2012. Performed By: #### 2 4323-8, 68980-3, DHEAS, 3051-0 ####[facility] LABCLIA [id number] [place] [address] [place] H. pylori IgG IA Qlon 2024 H. PYLORI IGG, QUAL Negative Normal Negative [facility] Comment on above: Order Comment: Speci men Type: BLOOD SPECIMENOrdering Facility: [facility] Address: [address] [place] [address] Result Comment: Gely ot exclude H. pylori infection if the specimen collected 3-4 weeks after onset of symptoms. Performed By: #### 1 989-3, 04124-3 ####[facility] LABCLIA [id number] [place] [address] [place] IgA SerPl-mCncon 05-04-2024 IgA [Mass/Vol] 73 mg/dL Normal 70-400 [facility] Comment on above: Order Comment: Speci men Type: BLOOD SPECIMENOrdering Facility: [facility] Address: [address] [place] [address] Performed By: #### 2 458-8, 1985-9, APOAB ####[facility] LABIA [id number] [place] [address] [place] Insulin SerPl-aCncon 025 Insulin Qn 9.5 u[IU]/mL Normal 3.0-25.0 [facility] Comment on above: Order Comment: Speci men Type: BLOOD SPECIMENOrdering Facility: [facility] Address: [address] [place] [address] Performed By: #### 2 0448-7 ####[facility] LABIA [id number] [place] [address] [place] Iron and Iron binding capaci ty panelon 05-04-2024 Iron [Mass/Vol] 107 ug/dL Normal 41-186 [facility] Comment on above: Order Comment: Speci men Type: BLOOD SPECIMENOrdering Facility: [facility] Address: [address] [place] [address] Performed By: #### 2 4323-8, 77879-3, DHEAS, 3051-0 ####[facility] LABIA [id number] [place] [address] [place] Iron binding capacity [Mass/Vol] 272 ug/dL Normal 232-386 [facility] Comment on above: Order Comment: Speci men Type: BLOOD SPECIMENOrdering Facility: [facility] Address: [address] [place] [address] Performed By: #### 2 4323-8, 70255-0, DHEAS, 3051-0 ####[facility] LABIA [id number] [place] [id number] [place] Iron/TIBC [Molar ratio] 39.3 % Normal 15.0-57.0 [facility] Comment on above: Order Comment: Speci men Type: BLOOD SPECIMENOrdering Facility: [facility] Address: [address] [place] [address] Performed By: #### 2 4323-8, 87230-4, DHEAS, 3051-0 ####[facility] LABCLIA [id number] [place] [id number] [place] LIPOPROTEIN FRACTIONATION BY NMR WITH LIPIDSon 05-04-2024 Cholesterol [Mass/Vol] 167 mg/dL Normal <=199 [facility] Comment on above: Order Comment: Speci men Type: BLOOD SPECIMENOrdering Facility: [facility] Address: [address] [place] [address] Performed By: #### N MRLPD ####[facility] H[facility]PITALIA [id number] [place] [address] Cholesterol in HDL [Mass/Vol] 60 mg/dL High 40-59 [facility] Comment on above: Order Comment: Speci men Type: BLOOD SPECIMENOrdering Facility: [facility] Address: [address] [place] [address] Performed By: #### N MRLPD ####[facility] H[facility]PITALIA [id number] [place] [address] EER LIPOFIT BY NMR See Note Normal [facility] Comment on above: Order Comment: Speci men Type: BLOOD SPECIMENOrdering Facility: [facility] Address: [address] [place] [address] Result Comment: Auth orized individuals can access the CogniFit Enhanced Report with an CogniFit Connect account using the following link. Your local lab can assist you in obtaining the patient report if you don't have a Connect account. [email or web address] INTERPRETIVE INFORMATION: LipoFit by NMR This test was developed and its performance characteristics determined by [employer]. It has not been cleared or approved by the US Food and Drug Administration. This test was performed in a CLIA certified laboratory and is intended for clinical purposes. Performed By: [employer] [address] [place] [address] Ski Topper: Adama Perez MD, PhD CLIA Number: [id number] Performed By: #### N MRLPD ####[facility] H[facility]ITALIA [id number] [place] [address] HDL PARTICLE NUMBER, NMR 28.4 umol/L Low >=33.0 [facility] Comment on above: Order Comment: Speci men Type: BLOOD SPECIMENOrdering Facility: [facility] Address: [address] [place] [address] Result Comment: INTE RPRETIVE INFORMATION: HDL Particle Number, NMR Percentiles in Reference Population: 25th 50th 75th 29.7 33.0 36.8 Performed By: #### N MRLPD ####[facility] [id number] [place] [address] HDL PARTICLE SIZE, NMR 9.4 nm Normal >=8.9 [facility] Comment on above: Order Comment: Speci men Type: BLOOD SPECIMENOrdering Facility: [facility] Address: [address] [place] [address] Result Comment: INTE RPRETIVE INFORMATION: HDL Particle Size, NMR Percentiles in Reference Population: 25th 50th 75th 8.6 8.9 9.3 Performed By: #### N MRLPD ####[facility] [id number] [place] [address] LARGE HDL PARTICLE NUMBER, NMR 8.4 umol/L Normal >=4.2 [facility] Comment on above: Order Comment: Speci men Type: BLOOD SPECIMENOrdering Facility: [facility] Address: [address] [place] [address] Result Comment: INTE RPRETIVE INFORMATION: Large HDL Particle Number, NMR Percentiles in Reference Population: 25th 50th 75th 2.0 4.2 7.3 Performed By: #### N MRLPD ####[facility] [id number] [place] [address] LARGE VLDL PARTICLE NUMBER, NMR <1.5 Normal <=2.7 [facility] Comment on above: Order Comment: Speci men Type: BLOOD SPECIMENOrdering Facility: [facility] Address: [address] [place] [address] Result Comment: INTE RPRETIVE INFORMATION: Large VLDL Particle Number, NMR Percentiles in Reference Population: 25th 50th 75th 0.9 2.7 7.0 Performed By: #### N MRLPD ####[facility] [id number] [place] [address] LDL CHOL CALCULATED 90 mg/dL Normal <=129 [facility] Comment on above: Order Comment: Speci men Type: BLOOD SPECIMENOrdering Facility: [facility] Address: [address] [place] [address] Performed By: #### N MRLPD ####[facility] [id number] [place] [address] LDL PARTICLE NUMBER, NMR 698 nmol/L Normal <=1135 [facility] Comment on above: Order Comment: Speci men Type: BLOOD SPECIMENOrdering Facility: [facility] Address: [address] [place] [address] Result Comment: REFE RENCE INTERVAL: LDL Particle Number, NMR Low............... Less than 1136 Moderate.......... 1136 - 1449 Borderline High... 1450 - 1764 High.............. 1765 - 2186 Very High......... Greater than 2186 Percentiles in Reference Population: 20th 50th 80th 95th 1136 1450 1765 2186 Percentiles consistent with those from NCEP ATP III LDL-C cutpoints of 100 mg/dL(20th percentile) and 160 mg/dL (80th percentile). Performed By: #### N MRLPD ####[facility] [id number] [place] [address] LDL PARTICLE SIZE, NMR 21.5 nm Normal >=20.7 [facility] Comment on above: Order Comment: Speci men Type: BLOOD SPECIMENOrdering Facility: [facility] Address: [address] [place] [address] Result Comment: INTE RPRETIVE INFORMATION: LDL Particle Size, NMR Percentiles in Reference Population: 25th 50th 75th 19.6 20.7 22.5 Performed By: #### N MRLPD ####[facility] [id number] [place] [address] SMALL LDL PARTICLE NUMBER, NMR <165 Normal <=634 [facility] Comment on above: Order Comment: Speci men Type: BLOOD SPECIMENOrdering Facility: [facility] Address: [address] [place] [address] Result Comment: INTE RPRETIVE INFORMATION: Small LDL Particle Number, NMR Percentiles in Reference Population: 25th 50th 75th 220 634 949 Performed By: #### N MRLPD ####[facility] [id number] [place] [address] Triglyceride [Mass/Vol] 84 mg/dL Normal 30-149 [facility] Comment on above: Order Comment: Speci men Type: BLOOD SPECIMENOrdering Facility: [facility] Address: [address] [place] [address] Performed By: #### N MRLPD ####[facility] [id number] [place] [address] VLDL PARTICLE SIZE, NMR 47.2 nm High <=46.7 [facility] Comment on above: Order Comment: Speci men Type: BLOOD SPECIMENOrdering Facility: [facility] Address: [address] [place] [address] Result Comment: INTE RPRETIVE INFORMATION: VLDL Particle Size, NMR Percentiles in Reference Population: 25th 50th 75th 44.3 46.7 50.2 Performed By: #### N MRLPD ####[facility] [id number] [place] [address] Magnesium SerPl-mCncon 05-04 Magnesium [Mass/Vol] 1.9 mg/dL Normal 1.7-2.3 [facility] Comment on above: Order Comment: Speci men Type: BLOOD SPECIMENOrdering Facility: [facility] Address: [address] [place] [address] Performed By: #### 3 016-3, 94530-3, 3024-7 ####[facility] LABCLIA [id number] [place] [address] [place] OMEGACHECKon 05-04-2024 ARACHIDONIC ACID 12.5 % by wt Normal 8.6-15.6 [facility] Comment on above: Order Comment: Speci men Type: BLOOD SPECIMENOrdering Facility: [facility] Address: [address] [place], [place] [id number] Performed By: #### O MEGAC ####[facility] [id number] [address] [place] [address] ARACHIDONIC ACID/EPA RATIO 35.9 Normal 3.7-40.7 [facility] Comment on above: Order Comment: Speci men Type: BLOOD SPECIMENOrdering Facility: [facility] Address: [address] [place] [address] Result Comment: Rece ived Date: Performed By: #### O MEGAC ####[facility]CLIA [id number] [address] [place] [address] DHA 1.9 % by wt Normal 1.4-5.1 [facility] Comment on above: Order Comment: Speci men Type: BLOOD SPECIMENOrdering Facility: [facility] Address: [address] [place] [address] Performed By: #### O MEGAC ####[facility] [id number] [address] [place] [address] DPA 0.9 % by wt Normal 0.8-1.8 [facility] Comment on above: Order Comment: Speci men Type: BLOOD SPECIMENOrdering Facility: [facility] Address: [address] [place] [address] Performed By: #### O MEGAC ####[facility] [id number] [address] [place] [address] EPA 0.3 % by wt Normal 0.2-2.3 [facility] Comment on above: Order Comment: Speci men Type: BLOOD SPECIMENOrdering Facility: [facility] Address: [address] [place] [address] Performed By: #### O MEGAC ####[facility] [id number] [address] [place] [address] LINOLEIC ACID 25.5 % by wt Normal 18.6-29.5 [facility] Comment on above: Order Comment: Speci men Type: BLOOD SPECIMENOrdering Facility: [facility] Address: [address] [place] [address] Performed By: #### O MEGAC ####[facility] [id number] [address] [place] [address] OMEGA-3 TOTAL 3.2 % by wt Normal [facility] Comment on above: Order Comment: Speci men Type: BLOOD SPECIMENOrdering Facility: [facility] Address: [address] [place] [address] Performed By: #### O MEGAC ####[facility] [id number] [address] [place] [address] OMEGA-6 TOTAL 41.1 % by wt Normal [facility] Comment on above: Order Comment: Speci men Type: BLOOD SPECIMENOrdering Facility: [facility] Address: [address] [place] [address] Result Comment: [facility] measures a number of omega-6 fatty acids with AA and LA being the two most abundant forms reported. Performed By: #### O MEGAC ####[facility] [id number] [address] [place] [address] OMEGA-6/OMEGA-3 RATIO 12.9 Normal 3.7-14.4 [facility] Comment on above: Order Comment: Speci men Type: BLOOD SPECIMENOrdering Facility: [facility] Address: [address] [place] [address] Performed By: #### O MEGAC ####[facility] [id number] [address] [place] [address] OMEGACHECK 3.2 % by wt Low >5.4 [facility] Comment on above: Order Comment: Speci men Type: BLOOD SPECIMENOrdering Facility: [facility] Address: [address] [place] [address] Result Comment: Incr easing blood levels of long-chain n-3 fatty acids are associated with a lower risk of sudden cardiac (1). Based on the top (75th percentile) and bottom (25th percentile) quartiles of the [facility] reference population, the following relative risk categories were established for OmegaCheck: A cut-off of >=5.5% by wt defines a population at optimal relative risk, 3.8-5.4% by wt defines a population at moderate relative risk, and <=3.7% by wt defines a population at high relative risk of sudden cardiac . The totality of the scientific evidence demonstrates that when consumption of fish oils is limited to 3 g/day or less of EPA and DHA, there is no significant risk for increased bleeding time beyond the normal range. A daily dosage of 1 gram of EPA and DHA lowers the circulating triglycerides by about 7-10% within 2 to 3 weeks. (Reference: 1-Steve et al. [facility]. 2002; 346: 4681-6224).This test was developed and its analytical performance characteristics have been determined by [facility] at [facility]. It has not been cleared or approved by the U.S. Food and Drug Administration. This assay has been validated pursuant to the CLIA regulations and is used for clinical purposes. Performed By: #### O [facility] ####[facility]ENTER[facility]CLIA [id number] [place] [address] T3Free SerPl-mCncon 05-04-19 25 Free T3 [Mass/Vol] 3.3 pg/mL Normal 2.3-4.1 [facility] Comment on above: Order Comment: Speci men Type: BLOOD SPECIMENOrdering Facility: [facility] Address: [address] [place] [address] Performed By: #### 2 4323-8, 22118-6, DHEAS, 3051-0 ####[facility] LABCLIA [id number] [facility] [id number] [place], [place] [id number] [place] T4 Free SerPl-mCncon 025 Free T4 [Mass/Vol] 1.2 ng/dL Normal 0.9-1.7 [facility] Comment on above: Order Comment: Speci men Type: BLOOD SPECIMENOrdering Facility: [facility] Address: [address] [place] [address] Performed By: #### 3 016-3, 79751-8, 3024-7 ####[facility] LABIA [id number] [place] [address] [place] TSH SerPl-aCncon 05-04-2024 TSH Qn 2.010 m[IU]/L Normal 0.270-4.20 0 [facility] Comment on above: Order Comment: Alexis suazo Type: BLOOD SPECIMENOrdering Facility: [facility] Address: [address] [place] [address] Result Comment: If t he patient is , TSH reference range varies by gestational period: First Trimester (weeks 9-12): 0.180-2.990 mIU/L Second Trimester: 0.110-3.980 mIU/L Third Trimester: 0.480-4.710 mIU/L Gabriel Gamez et al. A Practical Approach for the Verifications and Determination of Site- and Trimester-Specific Reference Intervals for Thyroid Function tests in . Thyroid, 2019:29:3:412-420. Mitchell Issa, et al. 2017 Guidelines of the [place] [employer] for the Diagnosis and Management of Thyroid Disease during and the . Thyroid, 2017:27:3:315-389. Performed By: #### 3 016-3, 80013-7, 3024-7 ####[facility] [id number] [place] [address] [place] Vit B12 SerPl-mCncon 025 Cobalamin (Vitamin B12) [Mass/Vol] 366 pg/mL Normal 232-1245 [facility] Comment on above: Order Comment: Alexis suazo Type: BLOOD SPECIMENOrdering Facility: [facility] Address: [address] [place] [address] Performed By: #### 2 132-9 ####[facility] [id number] [place] [address] [place] CNOVon 05-01-2024 CNOV Office Visit (FAMPWS ) ----- CARISSA TRIPATHI ([id number]) 2000 F Date Time Provider Department 05/01/24 9:40 AM [facility] FAMP[facility] During your visit today, we recorded the following information about you: Temperature Pulse Respiration Blood pressure 97.3 degrees 76/minute 12/minute 90/60 Weight Height 62.9 kg 1.73 m Sean Bond, DO 05/01/2024 12:05 PM Signed CC: Carissa Tripathi is a 23 year old female who presents to the office to establish care. 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 Had compartment syndrome testing and subsequent surgery at [facility]. 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 She was then eventually stopped on her OCPs since she was taking these for menstrual regulation Hx of late onset of menarche at age 14 and only developed menses by being on OCPs. She wasn't ovulating. She has recently then been found to have hyperprolactinemia and started originally on Cabergoline but had severe GI upset. She was then changed to Bromocriptine which is what she takes now but only able to tolerate this when inserted vaginally. She struggles with constipation that came with abrupt onset around the same time as diagnosed with hyperprolactinemia and started on these medications. Also concerned about potential dairy food trigger or gluten food trigger to some of her symptoms since developed rash on her face that seemed to improved with removal of gluten and dairy Mild chronic anxiety symptoms. Did benefit in the past with zoloft but would prefer not be taking SSRI She has been told that because of the clotting disorder and the hyperprolactinemia, she may need special hormone management and medications when she is . She is now and would like to become in the future. She has Dr. Catherine Lennon as DIE DEVELOPER. Hasn't seen MFM/EDGAR in the past but is willing to. Family history of premature cardiac disease and premature in her father at age 52 and her paternal aunt and paternal grandfather all <55 years old PAST MEDICAL HISTORY Diagnosis Date JAMARCUS-1 4G/5G genotype PAST SURGICAL HISTORY Procedure Laterality Date FASCIOTOMY,ILIOTIBIAL,OPE N Bilateral Social History: Social History Tobacco Use Smoking status: Never Smokeless tobacco: Never Vaping Use Vaping status: Never Used Substance Use Topics Alcohol use: Not Currently Drug use: Never FAMILY HISTORY Problem Relation Age of Onset Heart Attack Father 52 Cancer Maternal Grandfather 71 esophageal Heart Attack Paternal Grandmother Breast Cancer Paternal Grandmother 79 Heart Attack Paternal Grandfather 42 Current Outpatient prescriptions: bromocriptine (PARLODEL) 2.5 mg tablet 2.5 mg. 2 pills daily Allergies: ALLERGIES No Known Allergies ROS: See HPI PE: 05/01/2428 BP: 90/60 Pulse: 76 Resp: 12 Temp: 36.3 ?C (97.3 ?F) TempSrc: Temporal Weight: 62.9 kg (138 lb 10.7 oz) Height: 173 cm (5' 8.11) Gen: AANDO, NAD, non-toxic appearing, Pleasant, cooperative Discussion examination ASSESSMENT/PLAN: 1. Hyperprolactinemia (HCC) - ICD9: 253.1, ICD10: E22.1 (primary diagnosis) Labs as ordered Continue bromocriptine. F/u with Wellness Educator specialist for mgmt of medications Start on probiotic / prebiotic supplements to help bowel health and constipation symptoms Check to make sure not lactose intolerant or gluten intolerant/celiac - C-PEPTIDE BLD - INSULIN ASSAY BLOOD - CELIAC COMPREHENSIVE PANEL - LACTOSE TOLERANCE - CONSULT TO MATERNAL MEDI 2. Well adult exam - ICD9: V70.0, ICD10: Z00.00 Labs as ordered Continue bromocriptine. F/u with Wellness Educator specialist for mgmt of medications Start on probiotic / prebiotic supplements to help bowel health and constipation symptoms Check to make sure not lactose intolerant or gluten intolerant/celiac Come back to office for physical spring/summer - COMPLETE BLOOD COUNT AND DIFFERENTIAL - COMPREHENSIVE METABOLIC PANEL - DHEA-S BLD - THYROID STIMULATING HORMONE - T4 FREE/FREE THYROXINE - T3, FREE - H PYLORI IGG AB - IRON AND TIBC - VITAMIN D 25 HYDROXY - VITAMIN B12 - MAGNESIUM - C-PEPTIDE BLD - INSULIN ASSAY BLOOD - CELIAC COMPREHENSIVE PANEL - OMEGACHECK 3. Acute constipation - ICD9: 564.00, ICD10: K59.00 Labs as ordered Continue bromocriptine. F/u with Wellness Educator specialist for mgmt of medications Start on probiotic / prebiotic supplements to help bowel health and constipation symptoms Check to make sure not lactose intolerant or gluten intolerant/celiac Come back to office for physical spring/summer - COMPLETE BLOO (more content not included)... Normal [facility] DAYAMICARISSA ([id number]) 2000 F Date Time Provider Department 03/12/24 [facility] During your visit today, we recorded the following information about you: Freddie Segura 03/12/2024 9:49 AM Signed Patient's mother calling in to see if Dr. Bond would be willing to take her daughter on as a new patient. Her brother, Farshad Tripathi- just recently established. Please review and advise. Mother Katherine can be reached at [phone]. Freddie Segura March 12, 2024 9:48 AM Sean Bond DO 03/12/2024 4:50 PM Signed Yes, ok to establish care 40 min visit please Sean Bond DO Allergies As of Date: 03/12/2024 (No Known Allergies) Date Reviewed: 06/05/2016 Reviewed by: Catalina Beatty LPN - Fully Assessed Reason for Visit: Appointment [186] Patient Question [3867] Prescriptions as of 03/15/2024 - Drospirenone-Ethinyl Estradiol (ELISA 28) 3-0.02 mg per tablet - PROMETHAZINE VC-CODEINE 6.25-5-10 mg/5 mL syrp Problem List As Of Date: 03/12/2024 (None) Encounter Status:Closed by DAMASO SEGURANNLuis Manuel BECKER on 03/15/24 Normal [facility] Internal Medicine Office Vis lv 03-08-2024 Internal Medicine Office Visit [facility] [address] [place] [address] [place] [address] OFFICE VISIT Date of Service: 03/08/24 MR#: [id number] Acct: [id number] Name: CARISSA TRIPATHI Rep #: [id number] : 2000 Provider: Dr. Fatemeh garrett MD Age/Sex: 23/F Location[place] [facility] Status: Signed Intake Vital Signs 11/29/23 15:04 03/08/24 17:13 Height 5 ft 8 in 5 ft 8 in Weight: 135 lb 8 oz 141 lb BMI 20.6 21.4 BP 116/62 106/64 Blood Pressure Location Lt brachial Lt brachial Position Sitting Sitting Respiration 16 14 Pulse 73 68 Pulse Source Monitor Monitor Temp 97.8 F 97.6 F L Temp Source Temporal Temporal Pulse Oximetry (%) 99 98 Oxygen Delivery Method room air room air Intake Visit Reasons: fu Chief Complaint: Follow-up chronic conditions Wall Taper Helper Required: No Accompanied by: Mother Is patient in pain?: No Allergies No Known Allergies Allergy (Unverified 03/08/24 17:03) Medications ???Medication ???Instructions ???Recorded ???Confirmed ???Type bromocriptine 2.5 mg tablet mg PO 08/25/23 03/08/24 History Nurse's Note: States the pristiq did not help so she is no longer taking it. Thinks the sertraline helped mood, but causes severe constipation. States she is still having bad constipation. Last Bm was yesterday and had to take 6 ducolax. States she takes 2 tbls of benefiber. States she occasionally gets relief when trying something new for constipation but then it quits working. Denies abdominal pain, or nausea and vomiting but states she is uncomfortable. Has acne on cheeks has been working w/ an residential glazier and wonders if it could be caused due to gut health. Feels every other option has been exhausted and would like to try med discussed previously. 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 Family history of coronary artery disease occurring prior to 55 years of age History of deep venous thrombosis (DVT) of distal vein of right lower extremity (05/2019) Family history of cardiac arrest Pectus excavatum Acne Surgical History Compartment syndrome of lower extremity (05/03/19) H/O wisdom tooth extraction Family History Father , age 52 Myocardial infarction, Onset Age: 52 Grandfather , age 42 CAD (coronary artery disease) Myocardial infarction, Onset Age: 42 Cancer Grandmother CAD (coronary artery disease) Hx of blood clots Breast cancer Cancer Skin cancer Uncle , age 40's CAD (coronary artery disease) Sudden cardiac Mother High cholesterol Aunt Thyroid disorder Social History Smoking Status: Never smoker alcohol intake: never substance use type: does not use HPI HPI Chief Complaint: Follow-up chronic conditions Details: CARISSA TRIPATHI, is a 23 F who presents to the office today for follow-up of her chronic conditions. Chronic history of anxiety, had been on Pristiq however, she states that she discontinued it a few months ago. Has not noticed any significant difference without the medication. Believes that Zoloft was the most helpful but has concerns about worsening constipation on Zoloft. At this time anxiety mccarthy, she thinks she is okay. Not open to medication. History of constipation. Continues despite stopping Zoloft. Takes medications, occasionally finds it helpful and then stops. No blood in her stool. No abdominal pain. Now thinks back and thinks that constipation started after she started bromocriptine. Significant family history of early CAD. Paternal. 8 family members on her father side with fatal CAD. Stable lipid profile. Currently at a BMI of 21.4. No tobacco or alcohol abuse. ROS Const Constitutional: No body ache, chills, excessive sweating, fatigue, fever(s), frequent falls, headache(s), snoring, weakness, sleep problems or change in appetite Eyes Eyes: No blurry vision, change in vision, bulging eyes, floaters, eye pain or Light sensitivity ENT ENT: No abnormal hearing, ear or mastoid pain, tinnitus, balance problems, nosebleed/epistaxis, nasal congestion, headache(s), neck pain or sore throat Resp Respiratory: No cough, excessive phlegm production, pain on inspiration, shortness of breath, snoring or wheezing Cardio Cardiology: No chest pain at rest, chest pain with exertion, excessive sweating, shortness of breath, dyspnea on exertion, lightheadedness, orthopnea or palpitations Gastro GI: Positive for constipation; No abdominal pa (more content not included)... Normal [facility] PROGESTERONE 4317on 10-20 24 PROGESTERONE 10.9 ng/mL Normal . [facility] Comment on above: Order Comment: N Result Comment: Foll icular phase 0.1 - 0.9 Luteal phase 1.8 - 23.9 Ovulation phase 0.1 - 12.0 First trimester 11.0 - 44.3 Second trimester 25.4 - 83.3 Third trimester 58.7 - 214.0 Postmenopausal 0.0 - 0.1 Performed at: [facility] [id number] Weatherization Operations Manager: Terry Cantrell PhD, Phone: [phone] Performed By: #### L [phone] #### [facility] [address] [place], [place], [id number] CBC W/Diff, Automatedon 10-0 Absolute Lymph 1.49 X10 3/uL Normal 0.83-4.51 [facility] Comment on above: Performed By: #### L 100.0100, L500.4100, L500.4050 #### [facility] [address] [facility] [place], [place], [id number] Absolute Neut 5.2 X10 3/uL Normal 2.0-7.7 [facility] Comment on above: Performed By: #### L 100.0100, L500.4100, L500.4050 #### [facility] [address] [place], [address] Basophils/100 WBC (Bld) 0.3 % Normal 0-1 [facility] Comment on above: Performed By: #### L 100.0100, L500.4100, L500.4050 #### [facility] [address] [place], [address] Eosinophils/100 WBC (Bld) 0.4 % Normal 0-5 [facility] Comment on above: Performed By: #### L 100.0100, L500.4100, L500.4050 #### [facility] [address] [place], [address] Erythrocyte distribution width (RBC) [Ratio] 12.0 % Normal 11.6-14.6 [facility] Comment on above: Performed By: #### L 100.0100, L500.4100, L500.4050 #### [facility] [address] [place], [address] Hematocrit (Bld) [Volume fraction] 41.4 % Normal 37-47 [facility] Comment on above: Performed By: #### L 100.0100, L500.4100, L500.4050 #### [facility] [address] [place], [address] Hemoglobin (Bld) [Mass/Vol] 13.9 g/dL Normal 12.0-15.0 [facility] Comment on above: Performed By: #### L 100.0100, L500.4100, L500.4050 #### [facility] [address] [place], [address] IG% 0.100 Normal 0.0-0.9 [facility] Comment on above: Result Comment: IG% - Immature Granulocytes (promyelocytes, myelocytes and metamyelocytes) > 1% indicates that a LEFT SHIFT is Present. Performed By: #### L 100.0100, L500.4100, L500.4050 #### [facility] [address] [place], [address] Lymphocytes/100 WBC (Bld) 20.7 % Normal 19-41 [facility] Comment on above: Performed By: #### L 100.0100, L500.4100, L500.4050 #### [facility] [address] [place], [address] MCH (RBC) [Entitic mass] 31.0 pg Normal 27.0-32.0 [facility] Comment on above: Performed By: #### L 100.0100, L500.4100, L500.4050 #### [facility] [address] [place], [address] MCHC (RBC) [Mass/Vol] 33.6 g/dL Normal 32-36 [facility] Comment on above: Performed By: #### L 100.0100, L500.4100, L500.4050 #### [facility] [address] [place], [address] MCV (RBC) [Entitic vol] 92.4 fL Normal 81-99 [facility] Comment on above: Performed By: #### L 100.0100, L500.4100, L500.4050 #### [facility] [address] [place], [address] Monocytes/100 WBC (Bld) 6.8 % Normal 0-10 [facility] Comment on above: Performed By: #### L 100.0100, L500.4100, L500.4050 #### [facility] [address] [place], [address] Neutrophils/100 WBC (Bld) 71.7 % High 47-70 [facility] Comment on above: Performed By: #### L 100.0100, L500.4100, L500.4050 #### [facility] [address] [place], [address] Nucleated RBC (Bld) [#/Vol] 0 10*3/uL Normal 0-5 [facility] Comment on above: Performed By: #### L 100.0100, L500.4100, L500.4050 #### [facility] [address] [place], [address] Platelet mean volume (Bld) [Entitic vol] 10.6 fL Normal 6.2-12.0 [facility] Comment on above: Performed By: #### L 100.0100, L500.4100, L500.4050 #### [facility] [address] [place], [address] Platelets (Bld) [#/Vol] 238 10*3/uL Normal 150-450 [facility] Comment on above: Performed By: #### L 100.0100, L500.4100, L500.4050 #### [facility] [address] [place], [address] RBC (Bld) [#/Vol] 4.48 10*6/uL Normal 4.2-5.[address] [facility] Comment on above: Performed By: #### L 100.0100, L500.4100, L500.4050 #### [facility] [address] [place], [address] RDW SD 41.1 fl Normal 35.1-43.9 [facility] Comment on above: Performed By: #### L 100.0100, L500.4100, L500.4050 #### [facility] [address] [place], [address] WBC (Bld) [#/Vol] 7.2 10*3/uL Normal 4.4-11.0 [facility] Comment on above: Performed By: #### L 100.0100, L500.4100, L500.4050 #### [facility] [address] [place], [address] Comprehensive Metabolic Prof luiz 02-07-2024 Albumin [Mass/Vol] 4.3 g/dL Normal 3.2-5.0 [facility] Comment on above: Performed By: #### L 100.0100, L500.4100, L500.4050 #### [facility] [address] [place], [address] Albumin/Globulin [Mass ratio] 1.3 {ratio} Normal 0.9-2.4 [facility] Comment on above: Performed By: #### L 100.0100, L500.4100, L500.4050 #### [facility] [address] [place], [address] ALK P 43 U/L Low 45-117 [facility] Comment on above: Performed By: #### L 100.0100, L500.4100, L500.4050 #### [facility] [address] [place], [address] ALT [Catalytic activity/Vol] 21 U/L Normal 13-56 [facility] Comment on above: Performed By: #### L 100.0100, L500.4100, L500.4050 #### [facility] [address] [place], [address] AST [Catalytic activity/Vol] 19 U/L Normal 15-37 [facility] Comment on above: Performed By: #### L 100.0100, L500.4100, L500.4050 #### [facility] [address] [place], [address] Bilirubin [Mass/Vol] 0.60 mg/dL Normal 0.20-1.00 [facility] Comment on above: Result Comment: For patients on eltrombopag therapy, use of Dimension [place] TBIL is not recommended. Performed By: #### L 100.0100, L500.4100, L500.4050 #### [facility] [address] [place], [address] BUN/CRE 16.7 RATIO Normal 10-20 [facility] Comment on above: Performed By: #### L 100.0100, L500.4100, L500.4050 #### [facility] [address] [place], [address] CA,Total 9.9 mg/dL Normal 8.5-10.1 [facility] Comment on above: Performed By: #### L 100.0100, L500.4100, L500.4050 #### [facility] [address] [place], [address] Chloride [Moles/Vol] 104 mmol/L Normal 98-107 [facility] Comment on above: Performed By: #### L 100.0100, L500.4100, L500.4050 #### [facility] [address] [place], [address] CO2 [Moles/Vol] 27.0 mmol/L Normal 21.0-32.0 [facility] Comment on above: Performed By: #### L 100.0100, L500.4100, L500.4050 #### [facility] [address] [place], [address] Creatinine [Mass/Vol] 0.90 mg/dL Normal 0.55-1.02 [facility] Comment on above: Result Comment: The validity of the calculated GFR GFRAA in patients over 70 years has not been determined. Clinical correlation is essential. Performed By: #### L 100.0100, L500.4100, L500.4050 #### [facility] [address] [place], [address] EST GFR - AA 98 mL/min Normal >60 [facility] Comment on above: Result Comment: Afri can [place] GFR Calc Performed By: #### L 100.0100, L500.4100, L500.4050 #### [facility] [address] [place], [address] GAP 6 Normal 5-15 [facility] Comment on above: Performed By: #### L 100.0100, L500.4100, L500.4050 #### [facility] [address] [place], [address] GFR/1.73 sq M.predicted among non-blacks MDRD (S/P/Bld) [Vol rate/Area] 81 mL/min/{1.73_m2} Normal >60 [facility] Comment on above: Result Comment: Non- GFR Calc Performed By: #### L 100.0100, L500.4100, L500.4050 #### [facility] [address] [place], [address] Globulin (S) [Mass/Vol] 3.3 g/dL Normal 2.2-4.2 [facility] Comment on above: Performed By: #### L 100.0100, L500.4100, L500.4050 #### [facility] [address] [place], [address] Glucose [Mass/Vol] 89 mg/dL Normal 74-106 [facility] Comment on above: Performed By: #### L 100.0100, L500.4100, L500.4050 #### [facility] [address] [place], [address] Potassium [Moles/Vol] 3.9 mmol/L Normal 3.5-5.1 [facility] Comment on above: Performed By: #### L 100.0100, L500.4100, L500.4050 #### [facility] [address] [place], [address] Sodium [Moles/Vol] 136 mmol/L Normal 136-145 [facility] Comment on above: Performed By: #### L 100.0100, L500.4100, L500.4050 #### [facility] [address] [place], [address] T PROT 7.6 g/dL Normal 6.4-8.2 [facility] Comment on above: Performed By: #### L 100.0100, L500.4100, L500.4050 #### [facility] [address] [place], [address] Urea nitrogen [Mass/Vol] 15 mg/dL Normal 7-18 [facility] Comment on above: Performed By: #### L 100.0100, L500.4100, L500.4050 #### [facility] [address] [place], [address] Lipid Profileon 02-07-2024 Cholesterol [Mass/Vol] 153 mg/dL Normal 200 [facility] Comment on above: Result Comment: <200 mg/dL Desirable 200-240 mg/dL Borderline >240 mg/dL High Risk Performed By: #### L 100.0100, L500.4100, L500.4050 #### [facility] [address] [place], [address] Cholesterol in HDL [Mass/Vol] 69 mg/dL Normal [facility] Comment on above: Result Comment: The drugs N-Acetylcysteine and Metamizole may falsely depress this assay. Reference Range HDL <40 mg/dL Low HDL Cholesterol HDL >or= 60 mg/dL High HDL Cholesterol Performed By: #### L 100.0100, L500.4100, L500.4050 #### [facility] [address] [place], [address] Cholesterol in LDL [Mass/Vol] 70 mg/dL Normal 0-130 [facility] Comment on above: Performed By: #### L 100.0100, L500.4100, L500.4050 #### [facility] [address] [place], [address] Cholesterol in VLDL [Mass/Vol] 14 mg/dL Normal 5-40 [facility] Comment on above: Performed By: #### L 100.0100, L500.4100, L500.4050 #### [facility] [address] [place], [address] Triglyceride [Mass/Vol] 71 mg/dL Normal [facility] Comment on above: Result Comment: The drugs N-Acetylcysteine and Metamizole may falsely depress this assay. Serum Triglycerides Reference Interval Normal <150 mg/dL Borderline high 150 - 199 mg/dL High 200 - 499 mg/dL Very High > or = 500 mg/dL Performed By: #### L 100.0100, L500.4100, L500.4050 #### [facility] [address] [place], [address] Office Visit Reporton 2023 Office Visit Report [facility] [address] [place] [address] OFFICE VISIT Date of Service: 02/07/24 MR#: [id number] Acct: [id number] Patient: CARISSA TRIPATHI Rep #: [id number] : 2000 Provider: CESAR NURSE Age/Sex: 23/F Location[place] [facility] Status: Signed Intake Vital Signs 11/29/23 15:04 Height 5 ft 8 in Weight: 135 lb 8 oz BMI 20.6 BP 116/62 Blood Pressure Location Lt brachial Position Sitting Respiration 16 Pulse 73 Pulse Source Monitor Temp 97.8 F Temp Source Temporal Pulse Oximetry (%) 99 Oxygen Delivery Method room air Intake Visit Reasons: flu shot Chief Complaint: Anxiety Allergies No Known Allergies Allergy (Unverified 08/25/23 17:58) Immunizations Flucelvax Triv 3328-4982 (PF) 45 mcg (15 mcg x 3)/0.5 mL IM syringe Performing Provider: Fatemeh Medina MD Performing Location: [facility] Administered by: Arlene Leone MA on 02/07/24 15:21 Dose Route Admin Location Dispensed Lot Number Expiration Date NDC Man ufacturer 0.5 mL IM Left Deltoid 0.5 mL [id number] 09/26/24 55546-214-60 [employer] VIS Given Date VIS Provided VIS Publication Date 02/07/24 Single Vaccine 24 Eligibility Eligibility Date Funding Source Not Applicable Assessment and Plan Assessment and Plan Orders: Orders Influenza Immunization 02/07/24 Z23 - Encounter for immunization 02/13/24833 Date Carol Alegria Signature: Date (if applicable) CC: Normal [facility] No Panel InformationOrdered By: Catherine Lennon on 08-03-2023 Prolactin 9.8 ng/mL [facility] Comment on above: NORMAL REFERENCE [facility] FEMALE NON- 2.2 - 30.3 ng/mL 8.1 - 347.6 ng/mL POST-MENOPAUSAL 0.7 - 31.5 ng/mL MALE 2.5 - 17.4 ng/mL No Panel InformationOrdered By: Catherine Lennon on 06-29-2023 Prolactin 20.4 ng/mL [facility] Comment on above: NORMAL REFERENCE [facility] FEMALE NON- 2.2 - 30.3 ng/mL 8.1 - 347.6 ng/mL POST-MENOPAUSAL 0.7 - 31.5 ng/mL MALE 2.5 - 17.4 ng/mL Serum or plasma prolactin me asurement (mass/volume)Ordered By: Catherine Lennon on 04-12-2023 Prolactin [Mass/Vol] 15.2 ng/mL [facility] Comment on above: NORMAL REFERENCE [facility] FEMALE NON- 2.2 - 30.3 ng/mL 8.1 - 347.6 ng/mL POST-MENOPAUSAL 0.7 - 31.5 ng/mL MALE 2.5 - 17.4 ng/mL Laboratory - Chemistry and C hemistry - challengeOrdered By: Fatemeh Medina on 02-28-2023 Cobalamin (Vitamin B12) [Mass/Vol] 475 pg/mL [facility] Serum or plasma prolactin me asurement (mass/volume)Ordered By: Fatemeh Medina on 02-28-2023 Prolactin [Mass/Vol] 10.7 ng/mL [facility] Comment on above: NORMAL REFERENCE RAN [facility] FEMALE NON- 2.2 - 30.3 ng/mL 8.1 - 347.6 ng/mL POST-MENOPAUSAL 0.7 - 31.5 ng/mL MALE 2.5 - 17.4 ng/mL Basophil percentageOrdered B y: Catherine Lennon on 11-12-2022 Cholesterol [Mass/Vol] 118 mg/dL <200 [facility] Comment on above: <200 mg/dL Desirable 200-240 mg/dL Borderline >240 mg/dL High Risk Testosterone [Mass/Vol] 24 ng/dL - [facility] Triglyceride [Mass/Vol] 62 mg/dL <199 [facility] Comment on above: The drugs N-Acetylcy steine and Metamizole may falsely depress this assay.Serum Triglycerides Reference Interval Normal <150 mg/dL Borderline high 150 - 199 mg/dL High 200 - 499 mg/dL Very High > or = 500 mg/dL Free testosterone percentage Ordered By: Catherine Lennon on 11-12-2022 Testosterone Free/Testosterone.total [Mass fraction] 2.17 % 0.50-2.80 [facility] Laboratory - Chemistry and C hemistry - challengeOrdered By: Catherine Lennon on 11-12-2022 Cobalamin (Vitamin B12) [Mass/Vol] 259 pg/mL [facility] Free T4 [Mass/Vol] 1.18 ng/dL 0.76-1.46 [facility] No Panel InformationOrdered By: Catherine Lennon on 11-12-2022 Thyroid Stimulating Hormone (TSH) 1.13 uIU/mL 0.358-3.74 [facility] Androstenedione 91 ng/dL 41-262 [facility] Dehydroepiandrosterone Sulfate 172.0 ug/dL 110.0-431. 7 [facility] Follicle Stimulating Hormone 7.0 mIU/mL [facility] Comment on above: NORMAL REFERENCE [facility] FEMALE FOLLICULAR 2.3 - 12.6 mIU/mL MID-CYCLE PEAK 5.2 - 17.5 mIU/mL LUTEAL 1.7 - 12.9 mIU/mL POST-MENOPAUSAL ON MHT 5.9 - 72.8 mIU/mL NOT ON MHT 12.7 - 132.2 mlU/mL MALE 0.7 - 10.8 mIU/mL Free Triiodothyronine (T3) pg/dL 2.6 pg/mL 2.18-3.98 [facility] Glucose 2 Hour See comment [facility] Comment on above: FASTING 105 H Col: 0 11/12/22 0720 30 min GLU 122 Col: 11/12/22 0830 60 min GLU 60 L Col: 11/12/22 0930 120min GLU 64 L Col: 11/12/22 0900 Luteinizing Hormone 5.3 mIU/mL [facility] Comment on above: NORMAL REFERENCE [facility] FEMALE FOLLICULAR 1.9 - 26.2 mIU/mL MID-CYCLE PEAK 22.8 - 76.1 mIU/mL LUTEAL 0.6 - 16.6 mIU/mL POST-MENOPAUSAL ON MHT 1.1 - 52.4 mIU/mL NOT ON MHT 8.6 - 61.8 mIU/mL MALE 1.2 - 10.6 mIU/mL Total Triiodothyronine 1.03 ng/mL 0.6-1.81 [facility] Vitamin D 25-Hydroxy 40.0 ng/mL [facility] Comment on above: Vitamin D 25(OH) Sta tus Range Deficiency <20 ng/mL (50nmol/L) Insufficiency 20 - 30 ng/mL (50 - 75 nmol/L) Sufficiency 30 - 100 ng/mL (75 - 250 nmol/L) Toxicity >100 ng/mL (>250 nmol/L) Serum or plasma 17-hydroxypr ogesterone measurement (mass/volume)Ordered By: Catherine Lennon on 11-12-2022 17-Hydroxyprogesterone [Mass/Vol] 48 ng/dL . [facility] Comment on above: Adult Female Follicu lar 15 - 70 Luteal 35 - 290Performed at: BN - [facility] [address] [place], [place] [id number] Director: Newton Coleman MD, Phone: [phone] Serum or plasma cholesterol in HDL measurement (mass/volume)Ordered By: Catherine Lennon on 11-12-2022 Cholesterol in HDL [Mass/Vol] 55 mg/dL >40 [facility] Comment on above: The drugs N-Acetylcy steine and Metamizole may falsely depress this assay. Reference Range HDL <40 mg/dL Low HDL Cholesterol HDL >or= 60 mg/dL High HDL Cholesterol Serum or plasma cholesterol in VLDL measurement (mass/volume)Ordered By: Catherine Lennon on 11-12-2022 Cholesterol in VLDL [Mass/Vol] 12 mg/dL 5-40 [facility] Serum or plasma cortisol kylah surement (mass/volume)Ordered By: Catherine Lennon on 11-12-2022 Cortisol [Mass/Vol] 20.40 ug/dL 3.44-22.45 [facility] Comment on above: Adult (AM) 5.27 - 22 .45 ug/dL Adult (PM) 3.44 - 16.76 ug/dLPlease note revised CORTISOL reference range effective 2019. Serum or plasma estradiol (E 2) measurement (mass/volume)Ordered By: Catherine Lennon on 11-12-2022 E2 [Mass/Vol] 41.2 pg/mL [facility] Comment on above: NORMAL REFERENCE RAN GES FEMALE FOLLICULAR 21.4 - 164.8 pg/mL MID-CYCLE PEAK 49.9 - 367.2 pg/mL LUTEAL 40.2 - 259.0 pg/mL POST-MENOPAUSAL ON MHT <11.0 - 462.1 pg/mL NOT ON MHT <11.0 - 58.3 pg/mL MALE <11.0 - 52.5 pg/mL NOTE:[employer] HAS CONFIRMED THE DRUG FULVETRANT (FASLODEX) MAY CAUSE FALSELY ELEVATED ESTRADIOL RESULTS WHEN USING THIS TEST METHOD. IF PATIENT IS TAKING FULVESTRANT AN ALTERNATIVE METHOD SHOULD BE USED TO DETERMINE ESTRADIOL CONCENTRATION. Serum or plasma flecainide m easurement (mass/volume)Ordered By: Catherine Lennon on 11-12-2022 Flecainide [Mass/Vol] 4.01 ng/mL . [facility] Comment on above: For assays employing antibodies, the possibility exists forinterference by heterophile antibodies in the samples.11.Silvio Pimentel Interferences in Immunoassays - still a threat. Clin. Chem. 2000; 46: 3897-0997.This test was developed and its performance characteristicsdetermined by [employer]. It has not been cleared or approvedby the Food and Drug Administration.Reference Range:Females 20 - 25y: 1.23 - 11.51Median 4.70AMH concentrations of >= 1.06 ng/mL is correlated with abetter response to ovarian stimulation, produced moreretrievable oocytes and higher odds of live accordingto Marla monsalve al. Fertility and Sterility. 2010:94:2468-8905. The current AMH test method correlates withthe study method with a slope of 0.94.Females at risk of ovarian hyperstimulation syndrome orpolycystic ovarian syndrome (PCOS) may exhibit elevatedserum AMH concentrations. AMH levels from PCOS patientsmay be 2 to 5 fold higher than age-appropriate referenceinterval values.Granulosa cell tumors of the ovary may secrete AMH alongwith other tumor markers. Elevated AMH is not specific formalignancy, and the assay should not be used exclusively todiagnose or exclude an AMH-secreting ovarian tumor. Serum or plasma insulin jackie urement at 2 hours post 75 gm oral glucose (units/volume)Ordered By: Catherine Lennon on 11-12-2022 Insulin 2 Hr post 75 g glucose PO Qn See comment [facility] Comment on above: FASTING 4.2 Col: 0750 30 min INS 96.4 Col: 11/12/22 0830 60 min INS 64.5 Col: 11/12/22 0931 120min INS 27.5 Col: 11/12/22 0900 Serum or plasma low density lipoprotein (LDL) cholesterol measurement (mass/volume)Ordered By: Catherine Lennon on 11-12-2022 Cholesterol in LDL [Mass/Vol] 51 mg/dL 0-130 [facility] Serum or plasma progesterone measurement (mass/volume)Ordered By: Catherine Lennon on 11-12-2022 Progesterone [Mass/Vol] 0.72 ng/mL See Comment [facility] Comment on above: Progesterone Referen ce Table: UNITS Female: Follicular 0.15 - 1.40 ng/mL Luteal 3.34 - 25.56 ng/mL Mid-luteal 4.44 - 28.03 ng/mL Postmenopausal 0.0 - 0.73 ng/mL : 1st Trimester 11.22 - 90.00 ng/mL 2nd Trimester 25.55 - 89.40 ng/mL 3rd Trimester 48.40 -422.50 ng/mL Serum or plasma prolactin me asurement (mass/volume)Ordered By: Catherine Lennon on 11-12-2022 Prolactin [Mass/Vol] 19.1 ng/mL [facility] Comment on above: NORMAL REFERENCE RAN GES FEMALE NON- 2.2 - 30.3 ng/mL 8.1 - 347.6 ng/mL POST-MENOPAUSAL 0.7 - 31.5 ng/mL MALE 2.5 - 17.4 ng/mL Serum or plasma sex hormone binding globulin measurement (moles/volume)Ordered By: Cahterine Lennon on 11-12-2022 Sex hormone binding globulin [Moles/Vol] 59.7 nmol/L 24.6-122.0 [facility] Comment on above: Performed at: [facility] [address] [id number] Director: Terry Cantrell PhD, Phone: [phone] at: [employer] [id number] Director: Newton Coleman MD, Phone: [phone] at: [facility] - [facility] [address] [place], [place] [id number] Director: Renaldo Nettles MD, Phone: [phone] Serum or plasma testosterone free measurement (mass/volume)Ordered By: Catherine Lennon on 11-12-2022 Testosterone Free [Mass/Vol] 0.52 ng/dL 0.10-0.85 [facility] Serum Varicella zoster virus IgM antibody assay by immunoassay (units/volume)on 01-01-2022 VZV IgM IA Qn (S) < 0.91 index 0.00-0.[address] [facility] Work Phone: Comment on above: Negative <0.91 Borde rline 0.91 - 1.09 Positive >1.09Performed at: [facility] [address] [id number] Director: Terry Cantrell PhD, Phone: [phone] Lena 05-03-2019 [employer] Aut[employer] Interface Message Text PRE-OP CONSULTATION DATE OF SERVICE: 05/03/2019 LINE OUT MAN PROVIDER: ETHEL Ascencio SURGICAL DIAGNOSIS: compartment syndrome collin lower extremities Proposed surgery date: 05/03/19 Proposed surgical procedure: collin four compartment release of lower legs collin Advice/opinion was requested by Edilberto Garcia MD for pre-surgical consultation. CHIEF COMPLAINT: lower leg pain HISTORY OF PRESENT ILLNESS: Carissa Tripathi is a 18 y.o. female with a PMH significant for lower leg pain who presents today for perioperative evaluation. She plays volley ball and has been having pain for about a year and a half- she has had a pressure study in sports med and then she was seen by Dr Garcia and surgery was scheduled. The history is provided by the patient and mother and a chart review for evaluation for surgical risk factors. MEDICAL/SURGICAL HISTORY: History reviewed. No pertinent past medical history. Past Surgical History: Procedure Laterality Date WISDOM TOOTH EXTRACTION Past hospitalizations: no DRUG/FOOD ALLERGIES: No Known Allergies MEDICATIONS: (Not in an outpatient encounter) Medications Prior to Admission Medication Sig Dispense Refill Last Dose Naproxen Sodium 220 MG CAPS Take by mouth 05/02/2019 at Unknown time PEDIATRIC MULTIVITAMINS-IRON PO Take 1 Tab by mouth Past Week at Unknown time Drospirenone-Ethinyl Estradiol (ELISA) 3-0.02 MG tablets 05/02/2019 at Unknown time ANESTHESIA HISTORY: Difficulty with anesthesia? No Family history of difficulty with anesthesia? no Signs/symptoms of AARON? no BLEEDING HISTORY: History of bleeding issues in patient? no Bleeding problems in family? no History of anemia in patient? no Sickle Cell issues in patient or family? N/A REVIEW OF SYSTEMS: Comprehensive review of systems: History obtained from Mother, chart review and the patient. General ROS: negative Respiratory ROS: no cough, shortness of breath, or wheezing Cardiovascular ROS: no chest pain or dyspnea on exertion Musculoskeletal ROS: positive for - muscle pain A complete ROS was performed. Pertinent positives have been documented above or are in the HPI. All other systems were negative. Recent Illnesses? no HISTORY: Noncontributory DEVELOPMENTAL HISTORY: Milestones: All met as expected IMMUNIZATIONS: Stated as up to date, no records available SOCIAL/FAMILY HISTORY: Carissa lives with parents Special Needs: None Preferred Language: German Daycare: no School: College Smoking/Alcohol/Drug Use or Exposure: None Family History Problem Relation Age of Onset Anesth Problems Neg Hx Bleeding Prob Neg Hx VITAL SIGNS: Vitals: 05/03/19 0621 BP: 116/73 Pulse: 102 Resp: 18 Temp: 36.4 C (97.5 F) Ht Readings from Last 1 Encounters: 05/03/19 171.5 cm Wt Readings from Last 1 Encounters: 05/03/19 58.4 kg Facility age limit for growth percentiles is 20 years. SpO2 Readings from Last 3 Encounters: 05/03/19 99% PHYSICAL EXAM: General: Patient appears healthy, well developed, well nourished, in no acute distress Head: atraumatic and normocephalic Neuro: alert, oriented appropriately for age Eyes: pupils equal, round, and reactive to light Ears: canals clear, normal, tragus nontender Nose: nares patent without discharge Dentition: intact Throat: oropharynx is clear Neck: supple Chest: breath sounds are clear to auscultation bilaterally without rales, rhonchi, or wheezes Cardiac: regular rate and rhythm, normal S1 and S2, peripheral pulses strong and equal, capillary refill is normal Abdomen: abdomen is soft, nontender, and nondistended without hepatosplenomegaly or masses Back: deferred : deferred Skin: pink, warm, well perfused Lymphatic: no adenopathy noted Musculoskeletal: collin lower extremities with skin intact strong pedal pulses brisk cap refill/ denies pain at present DIAGNOSTIC STUDIES REVIEWED: The following lab results have been ordered/reviewed. HCG No results found for: CALCIUM, CO2, CL, CREATININE, GLU, K, NA, BUN No results found for: RBC, RDW, WBC, HCT, HGB, MCH, MCHC, MCV, MPV, BASOPCT, EOSPCT, LYMPHOPCT, MONOPCT, NEUTOPHILPCT, CORRECTEDWBC, NEUTROPHIL, NRBC, PLTEST No results found for: HGB No results found for: APTT, INR No results found for: TSH, M5DEKGP, W7CUFHS, THYROIDAB No results found for: HCGUR No results found for: HCGSERUM ASSESSMENT: Patient Active Problem List Diagnosis Leg pain, central, unspecified laterality Pain in both lower legs Compartment syndrome of left lower extremity Compartment syndrome of right lower extremity Carissa Tripathi is a 18 y.o. female with compartment syndrome. she presents today for a history and physical for the above mentioned surgical procedure in good condition. she has the following risk factors: none. Based on this evaluation for surgical risk factors and review of necessary clinical studies (if indicated), she has no other past medical history or past surgical history that would impact this procedure. PLAN: Surgery as scheduled Pain management team Patient/family education Nutritional management Hemodynamic monitoring Respiratory monitoring Neurovascular monitoring Care coordination: Grace Busby MD OTHER FINDINGS OR COMMENTS: Cc: Edilberto Fay, LOCOMOTIVE DRIVER-AUTOMOTIVE GENERATOR REPAIRER 05/03/2019 6:43 AM Normal [facility] XR DENSITOMETRYon 10-26-2018 XR DENSITOMETRY REASON FOR EXAM: del ayed healing fibular stress fracture -- amenorrhea. At risk for F.A.T. ;Low body weight due to inadequate caloric intake ;Amenorrhea ;Stress fracture of left fibula with delayed healing, subsequent encounter PROCEDURE: XR DENSITOMETRY COMPARISON: None TECHNIQUE: Utilizing [employer] Resume Horizon A technique and pediatric software analysis (APEX version 5.6.0.1), regions of interests were drawn about L1-L4, and the total body.The patient is Devyn stage 5, height is 174.1 centimeters. and weight is 60.3 kg. The patient is 17 years of age. Additional technical notes: 1. There are 6 nonrib-bearing vertebral bodies; the first of these is presumed to be T12, as only 11 ribs can be visualized. Analysis was performed using this counting scheme. 2. Patient's height Z score is 1.7 3. Scoliosis FINDINGS: Lumbar spine bone mineral density: 1.155 g/cm?. Z-score: 1.3. Calculated height-adjusted Z-score: 0.7. Total body (excluding head) bone mineral density: 1.009 g/cm?. Z-score: 0.6. Calculated height-adjusted Z-score: -0.2. Total body bone mineral content: 2387.69 g. Body fat: 34.6%. IMPRESSION: 1. According to the food server's database, which accounts for age, sex, and ethnicity, the patient's lumbar and whole body spine bone mineral density Z-score is normal for chronologic age. 2. Height adjusted Z-score is thought to be more accurate for pediatric patients and is used for clinical decisions for patients aged 5 years and greater. Height adjusted Z score analyzed using [email or web address].research.[email or web address].ph p. Calculated height-adjusted Z-score is 0.7 for lumbar spine bone mineral density. Calculated height-adjusted Z-score is -0.2 for total body (less head) bone mineral density. 3. Scoliosis 4. Total body fat is 34.6% 5. Since there are no universally accepted diagnostic or fracture risk criteria for bone mineral density in children, therapeutic recommendations based on BMD should be individualized with appropriate consideration of the clinical history, examination, and other pertinent information. Consultation with an experienced pediatric bone specialist is advised. Interpreted by: Jessica Hadley MD Signed by: Jessica Hadley MD on 10/26/2018 11:31 AM Normal [facility] CBC Auto Diff Reflex Manualo n 10-16-2018 Basophil 0.6 % Normal 0.0-1.0 [facility] Differential Type Automated [facility] Eosin[facility] 1.3 % Normal 1.0-4.0 [facility] Lymphocyte 33.3 % Normal 25.0-45.0 [facility] Monocyte 9.0 % High 2.0-8.0 [facility] Neutrophil 55.8 % Normal 39.0-75.0 [facility] Automated Absolute Neutrophil 2.60 10*3/mm3 Normal [facility] Comment on above: Result Comment: Auto mated Absolute Neutrophil Count (ANC) is directly measured using a hematology instrument. ANC determined from manual differential cell count may differ. No [facility] reference range has been validated for this assay. Erythrocyte distribution width (RBC) [Ratio] 11.6 % Normal 10-14.1 [facility] MCH (RBC) [Entitic mass] 30.2 pg Normal 26-34 [facility] MCHC (RBC) [Mass/Vol] 34.5 % Normal 31.0-37.0 [facility] MCV (RBC) [Entitic vol] 87.6 fL Normal 80-100 N [facility] Platelet mean volume (Bld) [Entitic vol] 10.7 fL Normal 9.3-13.0 [facility] Platelets (Bld) [#/Vol] 257 10*3/uL Normal 140-440 [facility] RBC (Bld) [#/Vol] 4.53 10*6/uL Normal 4.0-5.2 [facility] WBC (Bld) [#/Vol] 4.7 10*3/uL Normal 4.5-13.5 [facility] Comprehensive Metabolic Pane blayne 10-16-2018 Albumin [Mass/Vol] 4.4 g/dL Normal 3.4-5.2 [facility] ALP [Catalytic activity/Vol] 43 U/L Low 50-136 [facility] ALT [Catalytic activity/Vol] 23 U/L Normal <40 [facility] AST [Catalytic activity/Vol] 23 U/L Normal 15-50 [facility] Bilirubin Ql (U) 0.3 mg/dL Normal 0.1-1.0 [facility] Calcium [Mass/Vol] 9.9 mg/dL Normal 8-10.5 [facility] Chloride [Moles/Vol] 104 mmol/L Normal 95-106 [facility] CO2 [Moles/Vol] 26 mmol/L Normal 24-35 [facility] Creatinine [Mass/Vol] 0.80 mg/dL Normal 0.5-1 [facility] Glucose [Mass/Vol] 90 mg/dL Normal 60-115 [facility] Potassium [Moles/Vol] 4.1 mmol/L Normal 3.7-5.3 [facility] Protein [Mass/Vol] 7.6 g/dL Normal 6.4-8.4 [facility] Sodium [Moles/Vol] 140 mmol/L Normal 135-145 [facility] Urea nitrogen [Mass/Vol] 14 mg/dL Normal 5-18 [facility] Ferritinon 10-16-2018 Ferritin [Mass/Vol] 21 ng/mL Normal 4-233 [facility] LDHon 10-16-2018 LDH 359 U/L Normal 325-650 [facility] XR TIBIA AND FIBULA - BILATE RALon 10-16-2018 XR TIBIA AND FIBULA - BILATERAL REASON FOR EXAM: Lower leg pain TECHNIQUE: XR TIBIA AND FIBULA - BILATERAL, 4 views COMPARISON: Nuclear medicine bone scintigraphy for 2018. FINDINGS: RIGHT TIBIA and FIBULA: Normal. LEFT TIBIA and FIBULA: There is a subtle area of periosteal reaction along the distal diaphysis of the fibula. SOFT TISSUES: Normal. No radio-opaque foreign body. ANKLE AND KNEE JOINTS: Normal alignment. No evidence for effusion. IMPRESSION: 1. There is subtle periosteal reaction along the distal fibular diaphysis which corresponds to an area of uptake seen on nuclear medicine bone scintigraphy. This is suggestive of a healing stress fracture. 2. No radiographic abnormality of the right tibia and fibula is evident. Interpreted by: Lc Hernandez MD Signed by: Lc Hernandez MD on 10/16/2018 2:25 PM Normal [facility] BONE IMAGINGon 08-10-2018 NM BONE IMAGING REASON FOR EXAM: vba ll athlete with steadily worsening bilateral activity-related lower extremity pain -- suspicion for fibular stress fracture high, plain films negative -- r/o fibular stress fracture ;Pain of left lower extremity ;Pain of right lower extremity PROCEDURE: NM BONE IMAGING COMPARISON: Bilateral tibia and fibula x-rays on 08/02/2018 TECHNIQUE: 15.51 mCi technetium-99m methylene diphosphonate were injected into a right antecubital vein. Anterior and posterior whole-body blood pool images. Bone phase acquisitions include anterior and posterior whole-body images with bilateral projections of the skull as well as true anterior and posterior skull images, and bilateral lateral lower leg images. FINDINGS: BLOOD POOL IMAGES: Physiologic activity is seen in the cardiovascular blood pool as well as the bilateral renal collecting systems and urinary bladder. No focal hyperemia is noted. BONE PHASE IMAGES: Scoliosis is present, without focal uptake in the spine. There is linear uptake along the diaphysis of the tibia bilaterally compatible with malik splints. This is slightly more focal in the mid posterior diaphysis of right tibia, which may represent a more discrete healing stress fracture. There is also some linear uptake along the distal left fibula diaphysis with a focal area of more intense uptake at the distal diaphysis. This is more distal than the visualized lucency on the prior x-rays but suggests a healing stress fracture. IMPRESSION: 1. Linear uptake along the tibias and at distal fibula compatible with malik splints/chronic stress change. 2. More focal areas of uptake at the distal diaphysis of left distal fibula and at the posterior mid diaphysis of right tibia suggesting healing discrete stress fractures 3. Scoliosis Interpreted by: Jessica Hadley MD Signed by: Jessica Hadley MD on 08/10/2018 1:32 PM Normal [facility] POCT HCG, Urine Qualitativeo n 08-10-2018 Beta HCG ( test) Ql (U) Negative Normal NEG [facility] Comment: First morning urine is the specimen of choice for urine test. False negative results can occur when random urine specimens are tested. A serum test is recommended if results do not correlate with the patient's clinical condition. Normal [facility] XR TIBIA AND FIBULA - BILATE RALon 08-02-2018 XR TIBIA AND FIBULA - BILATERAL REASON FOR EXAM: Lower leg pain-Bilateral lower leg pain ;Pain in both lower legs TECHNIQUE: XR TIBIA AND FIBULA - BILATERAL, 4 views COMPARISON: None. FINDINGS: RIGHT TIBIA and FIBULA: Normal. LEFT TIBIA and FIBULA: Normal tibia. On the lateral view only, there is no oblique lucency running within the medullary space of the diaphysis of the fibula. SOFT TISSUES: Normal. No radio-opaque foreign body. ANKLE AND KNEE JOINTS: Normal alignment. No evidence for effusion. IMPRESSION: Indeterminate, oblique lucency within the left fibular diaphysis. This is favored to represent a prominent nutrient foramen. However on the lateral view only it does have the appearance of a fracture, also in the differential diagnosis. Otherwise, normal study. Interpreted by: Anthony Vargas DO Signed by: Anthony Vargas DO on 08/02/2018 1:47 PM Normal [facility] Emergency Room Note on 05-26-2017 [place] Note Normal [facility] ([place]) Patient Summary Documentson 05-25-2017 Patient Summary Documents Normal [facility] ([place]) XR ANKLE MINIMUM 3 VIEWS LEF Ton 05-25-2017 XR ANKLE MINIMUM 3 VIEWS LEFT ORIGINALLeft ankle 3 views HISTORY: Injured, pain COMPARISON: None No bone, joint or soft tissue abnormality is identified. No acute fracture seen. Interpreted By: Dante Brown MDPreliminary Report By: Dante Brown MDElectronically Signed By: Dante Brown MD Dictated Date: 05/25/2017 9:37:20 PM Prelim Date: 05/25/2017 9:37:20 PM Sign Date: 05/25/2017 9:37:39 PM Normal [facility] ([place]) Vital Signs Date Time Vital Sign Value Performing Clinician Viviana tee 10-10-2024 13:42-0400 Body mass index (BMI) [Ratio] 20.61 kg/m2 Sean Bond DO Work Phone: [facility] 10-10-2024 13:42-0400 Body temperature 96.6 [degF] Sean Bond DO Work Phone: [facility] 10-10-2024 13:42-0400 Body weight 61.69 kg Sean Bond DO Work Phone: [facility] 10-10-2024 13:42-0400 Diastolic blood pressure 80 mm[Hg] Sean Bond DO Work Phone: [facility] 10-10-2024 13:42-0400 Heart rate 64 /min Sean Bond DO Work Phone: [facility] 10-10-2024 13:42-0400 Respiratory rate 12 /min Sean Bond DO Work Phone: [facility] 10-10-2024 13:42-0400 Systolic blood pressure 124 mm[Hg] Sean Bond DO Work Phone: [facility] 05-01-2024 09:28-0500 Body height 173 cm Sean Bond DO Work Phone: [facility] 05-01-2024 09:28-0500 Body mass index (BMI) [Ratio] 21.02 kg/m2 Sean Bond DO Work Phone: [facility] 05-01-2024 09:28-0500 Body temperature 97.3 [degF] Sean Bond DO Work Phone: [facility] 05-01-2024 09:28-0500 Body weight 62.9 kg Sean Bond DO Work Phone: [facility] 05-01-2024 09:28-0500 Diastolic blood pressure 60 mm[Hg] Sean Bond DO Work Phone: [facility] 05-01-2024 09:28-0500 Heart rate 76 /min Sean Bond DO Work Phone: [facility] 05-01-2024 09:28-0500 Respiratory rate 12 /min Sean Bond DO Work Phone: [facility] 05-01-2024 09:28-0500 Systolic blood pressure 90 mm[Hg] Sean Bond DO Work Phone: [facility] 05-26-2023 13:23-0500 Body height 172.[address] Fatemeh Medina Work Phone: [facility] 05-26-2023 13:23-0500 Body mass index (BMI) [Ratio] 20.3 kg/m2 Dr. Fatemeh Medina Work Phone: [facility] 05-26-2023 13:23-0500 Body temperature 98.6 [degF] Dr. Fatemeh Medina Work Phone: [facility] 05-26-2023 13:23-0500 Body weight 60.[address] Fatemeh Medina Work Phone: [facility] 05-26-2023 13:23-0500 Diastolic blood pressure 62 mm[Hg] Dr. Fatemeh Medina Work Phone: [facility] 05-26-2023 13:23-0500 Heart rate 74 /min Dr. Fatemeh Medina Work Phone: [facility] 05-26-2023 13:23-0500 Respiratory rate 14 /min Dr. Fatemeh Medina Work Phone: [facility] 05-26-2023 13:23-0500 SaO2% (BldA) [Mass fraction] 99 % Dr. Fatemeh Medina Work Phone: [facility] 05-26-2023 13:23-0500 Systolic blood pressure 104 mm[Hg] Dr. Fatemeh Medina Work Phone: [facility] 01-25-2023 10:09-0400 Body temperature 98.4 [degF] Dr. Grace Kapadia Work Phone: [facility] 01-25-2023 10:09-0400 Diastolic blood pressure 74 mm[Hg] Dr. Grace Kapadia Work Phone: [facility] 01-25-2023 10:09-0400 Heart rate 78 /min Dr. Grace Kapadia Work Phone: [facility] 01-25-2023 10:09-0400 Respiratory rate 17 /min Dr. Grace Kapadia Work Phone: [facility] 01-25-2023 10:09-0400 SaO2% (BldA) [Mass fraction] 98 % Dr. Grace Kapadia Work Phone: [facility] 01-25-2023 10:09-0400 Systolic blood pressure 116 mm[Hg] Dr. Grace Kapadia Work Phone: [facility] 12-30-2022 16:51-0400 Body height 172.[address] Grace Kapadia Work Phone: [facility] 12-30-2022 16:51-0400 Body mass index (BMI) [Ratio] 19.8 kg/m2 Dr. Grace Kapadia Work Phone: [facility] 12-30-2022 16:51-0400 Body temperature 97.7 [degF] Dr. Grace Kapadia Work Phone: [facility] 12-30-2022 16:51-0400 Body weight 59.[address] Grace Kapadia Work Phone: [facility] 12-30-2022 16:51-0400 Diastolic blood pressure 68 mm[Hg] Dr. Grace Kapadia Work Phone: [facility] 12-30-2022 16:51-0400 Heart rate 78 /min Dr. Grace Kapadia Work Phone: [facility] 12-30-2022 16:51-0400 Respiratory rate 16 /min Dr. Grace Kapadia Work Phone: [facility] 12-30-2022 16:51-0400 SaO2% (BldA) [Mass fraction] 99 % Dr. Grace Kapadia Work Phone: [facility] 12-30-2022 16:51-0400 Systolic blood pressure 124 mm[Hg] Dr. Grace Kapadia Work Phone: [facility] 11-11-2022 14:27-0400 Body height 172.[address] Grace Kapadia Work Phone: [facility] 11-11-2022 14:27-0400 Body mass index (BMI) [Ratio] 18.8 kg/m2 Dr. Grace Kapadia Work Phone: [facility] 11-11-2022 14:27-0400 Body temperature 98.7 [degF] Dr. Grace Kapadia Work Phone: [facility] 11-11-2022 14:27-0400 Body weight 56.[address] Grace Kapadia Work Phone: [facility] 11-11-2022 14:27-0400 Diastolic blood pressure 80 mm[Hg] Dr. Grace Kapadia Work Phone: [facility] 11-11-2022 14:27-0400 Heart rate 82 /min Dr. Grace Kapadia Work Phone: [facility] 11-11-2022 14:27-0400 Respiratory rate 16 /min Dr. Grace Kapadia Work Phone: [facility] 11-11-2022 14:27-0400 SaO2% (BldA) [Mass fraction] 99 % Dr. Grace Kapadia Work Phone: [facility] 11-11-2022 14:27-0400 Systolic blood pressure 110 mm[Hg] Dr. Grace Kapadia Work Phone: [facility] Encounters Encounter Date Encounter Type Care Provider Facility Start: 12-17-2024 ambulatory Catherine Lennon Fac ility:[facility] Start: 12-10-[address] Alyson Lennon MD -Laboratory Work Phone: Start: 12-06-2024 ambulatory AMANDA JACOBSON [facility] Start: 12-06-2024 End: 12-06-[address] Sean Bond DO Work Phone: -Laboratory Start: 12-06-2024 End: 12-06-[address] Catherine Lennon MD -Laboratory Work Phone: Start: 12-06-2024 End: 12-06-2024 ambulatory Catherine Lennon Facility:[facility] Start: 10-10-2024 End: 10-10-2024 Patient encounter procedure Sean Bond DO Work Phone: [facility] Comment on above: Situational anxiety (Primary Dx); Encounter for screening examination for other mental health and behavioral disorders; Hyperprolactinemia (HCC); Irregular menses; H/O one miscarriage Start: 10-10-2024 End: 10-10-2024 ambulatory SEAN BOND Facility:[facility] Start: 08-27-2024 End: 08-27-[address] [facility] Facility:[facility] Start: 08-25-2024 End: 08-29-[address] Catherine Lennon MD -Laboratory Work Phone: Start: 08-25-2024 End: 08-29-2024 ambulatory Catherine Lennon Facility:[facility] Start: 06-28-2024 End: 06-28-[address] Fatemeh Medina MD Work Phone: [facility] Work Phone: Start: 06-28-2024 End: 06-28-[address] Catherine Lennon MD -Laboratory Work Phone: Start: 06-28-2024 End: 06-28-2024 ambulatory [facility] Facility:[facility] Start: 06-18-2024 End: 06-18-[address] Catherine Lennon MD -Ultrasound, [facility] Work Phone: Start: 06-18-2024 End: 06-18-2024 [facility] Start: 06-17-2024 End: 06-17-[address] Catherine Lennon MD -Laboratory Work Phone: Start: 06-17-2024 End: 06-17-2024 ambulatory [facility] Facility:[facility] Start: 06-13-2024 End: 06-13-[address] Catherine Lennon MD -Laboratory, [place] Start: 06-13-2024 End: 06-13-2024 ambulatory Catherine Lennon Facility:[facility] Start: 06-08-2024 End: 06-08-2024 Telephone encounter Historical Maternal Medicine Start: 05-21-2024 End: 05-21-2024 Telephone encounter Sean Bond DO Work Phone: [facility] [place] Start: 05-12-2024 End: 05-12-2024 Telephone encounter Sean Bond DO Work Phone: [facility] [place] Start: 05-11-2024 End: 05-11-2024 Nursing evaluation of patient and report Mi Nurse Work Phone: [facility] [place] Comment on above: Acute constipation ( Primary Dx) Start: 05-11-2024 End: 05-11-2024 ambulatory SELF Facility:[facility] Start: 05-04-2024 End: 05-04-2024 ambulatory SEAN BOND Facility:[facility] Start: 05-01-2024 End: 05-01-2024 Patient encounter procedure Sean Bond DO Work Phone: [facility] Comment on above: Hyperprolactinemia ( HCC) (Primary Dx); Well adult exam; Acute constipation; Family history of premature CAD; Clotting disorder (HCC); Late menarche; Irregular menses; History of fasciotomy Start: 05-01-2024 End: 05-01-2024 Patient encounter status Sean Bond DO Work Phone: [facility] Work Phone: Start: 05-01-2024 End: 05-01-2024 ambulatory SEAN BOND Facility:[facility] Start: 05-01-2024 Encounter for maria esther l adult medical examination without abnormal findings SEAN Gamez BOND [facility] Start: 03-12-2024 End: 03-15-2024 Telephone encounter Sean Bond DO Work Phone: [facility] [place] Comment on above: Appointment; Patient Question Start: 03-08-2024 End: 03-08-2024 ambulatory [facility] Start: 02-07-2024 End: 02-07-[address] [facility] Start: 02-07-2024 End: 02-07-2024 ambulatory [facility] Facility:[facility] Start: 08-03-2023 End: 08-03-[address] Fatemeh Medina Work Phone: [facility] Work Phone: Start: 08-03-2023 End: 08-03-[address] [facility] Start: 06-29-2023 End: 06-29-[address] Fatemeh Medina Work Phone: [facility] Work Phone: Start: 06-29-2023 End: 06-29-[address] Fatemeh Medina Work Phone: [facility]-Laboratory Work Phone: Start: 05-26-2023 End: 05-26-[address] Fatemeh Medina Work Phone: [facility] Work Phone: Start: 04-12-2023 End: 04-12-[address] Fatemeh Medina Work Phone: [facility] Work Phone: Start: 04-12-2023 End: 04-12-[address] Fatemeh Medina Work Phone: [facility] [place] Start: 02-28-2023 End: 02-28-[address] Grace Kapadia Work Phone: [facility] Work Phone: Start: 02-28-2023 End: 02-28-[address] Grace Kapadia Work Phone: [facility] [place] Start: 01-25-2023 End: 01-25-[address] Grace Kapadia Work Phone: [facility] Internal [facility] Work Phone: Start: 12-30-2022 End: 12-30-[address] Grace Kapadia Work Phone: [facility] Work Phone: Start: 12-06-2022 End: 12-06-[address] Grace Kapadia Work Phone: [facility] Work Phone: Start: 12-06-2022 End: 12-06-[address] Grace Kapadia Work Phone: [facility] Work Phone: Start: 11-12-2022 End: 11-12-[address] Grace Kapadia Work Phone: [facility] Work Phone: Start: 11-12-2022 End: 11-12-[address] Grace Kapadia Work Phone: [facility]-Laboratory Work Phone: Start: 11-11-2022 End: 11-11-[address] Grace Kapadia Work Phone: [facility] Work Phone: Start: 01-01-2022 End: 01-01-2022 ambulatory [facility] Work Phone: Start: 01-01-2022 End: 01-01-2022 [facility] Start: 05-25-2017 End: 05-26-2017 Emergency department patient visit BRENNON URENA Facility:B Procedures Date Procedure Procedure Detail Performing Clinician Start: 12-10-[address] Sean Bond DO Work Phone: Comment on above: Follicular phase 0.1 - 0.9 Luteal phase 1.8 - 23.9 Ovulation phase 0.1 - 12.0 First trimester 11.0 - 44.3 Second trimester 25.4 - 83.3 Third trimester 58.7 - 214.0 Postmenopausal 0.0 - 0.1Performed at: [facility] [address] [id number] Director: Terry Cantrell PhD, Phone: [phone] Start: 12-06-[address] Sean Bond DO Work Phone: Comment on above: Follicular phase 0.1 - 0.9 Luteal phase 1.8 - 23.9 Ovulation phase 0.1 - 12.0 First trimester 11.0 - 44.3 Second trimester 25.4 - 83.3 Third trimester 58.7 - 214.0 Postmenopausal 0.0 - 0.1Performed at: [facility] [address] [id number] Director: Terry Cantrell PhD, Phone: [phone] Start: 06-28-2024 Transvaginal obstetr ic ultrasonography Dr. Fatemeh Medina MD Work Phone: Start: 06-18-2024 [address]vaginal obstetr ic ultrasonography Dr. Fatemeh Medina MD Work Phone: Start: 05-01-2024 H/O: surgery History of fasciotomy Bentley Bond DO Work Phone: Start: 12-06-2022 MRI of brain with contrast Dr. Grace Kapadia Work Phone: Start: 10-16-2018 Blood count hematocrit Plan of Treatment Date Care Activity Detail Author Start: 01-02-2032 Urine microalbumin profile DTaP,Tdap,Td Vaccine (8 - Td or Tdap) [facility] Start: 05-03-2025 End: 05-03-2025 Patient encounter procedure 05/03/2025 7:40 AM EST Office Visit [facility] [address] [place] [address] Sean Bond DO [address] [place] [address] annual wellness [facility] Comment on above: annual wellness Start: 08-20-2024 End: 08-20-2024 Patient encounter procedure 08/20/2024 8:40 AM EDT Office Visit [facility] [address] [place] [address] Sean oBnd, [address] [place] [address] 4 month follow up [facility] Comment on above: 4 month follow up Start: 05-15-2024 End: 05-15-2024 Patient encounter procedure 05/15/2024 1:00 PM EST Office Visit Maternal Medicine [address] [address] [id number] [place] [address] [address] [place] [id number] Hyperprolactinemia (HCC) [E22.1]; Clotting disorder (HCC) [D68.9] [facility] Comment on above: Hyperprolactinemia (HCC) [E22.1]; Clotti ng disorder (HCC) [D68.9] Start: 05-11-2024 End: 05-11-2024 ambulatory 05/11/2024 9:00 AM EST Results Only [facility] [address] [facility] [place] [address] Lactose Tolerance [facility] Comment on above: Lactose Tolerance Start: 05-11-2024 End: 05-11-2024 Nursing evaluation of patient and report 05/11/2024 8:45 AM EST Nurse Visit [facility] [address] [facility] [place] [address] Nurse, [place] [address] [facility] [place] [address] Lactose Tolerance test [facility] Comment on above: Lactose Tolerance test Start: 05-01-2024 End: 07-31-2024 25-hydroxyvitamin D3 [Mass/volume] in Serum or Plasma VITAMIN D 25 HYDROXY Lab Routine Well adult exam Expected: 05/01/2024, Expires: 07/31/2024 [facility] Comment on above: Expected: 05/01/2024, Expires: Start: 05-01-2024 End: 07-31-2024 APOLIPOPROTEIN A+B APOLIPOPROTEIN A+B Lab Routine Family history of premature CAD Expected: 05/01/2024, Expires: 07/31/2024 [facility] Comment on above: Expected: 05/01/2024, Expires: Start: 05-01-2024 End: 07-31-2024 C peptide [Mass/volume] in Serum or Plasma C-PEPTIDE BLD Lab Routine Well adult exam Hyperprolactinemia (HCC) Expected: 05/01/2024, Expires: 07/31/2024 [facility] Comment on above: Expected: 05/01/2024, Expires: Start: 05-01-2024 End: 07-31-2024 CBC W Auto Differential panel - Blood COMPLETE BLOOD COUNT AND DIFFERENTIAL Lab Routine Well adult exam Acute constipation Expected: 05/01/2024, Expires: 07/31/2024 [facility] Work Phone: Comment on above: Expected: 05/01/2024, Expires: Start: 05-01-2024 End: 07-31-2024 CELIAC COMPREHENSIVE PANEL CELIAC COMPREHENSIVE PANEL Lab Routine Well adult exam Hyperprolactinemia (HCC) Acute constipation Expected: 05/01/2024, Expires: 07/31/2024 [facility] Comment on above: Expected: 05/01/2024, Expires: Start: 05-01-2024 End: 07-31-2024 Cobalamin (Vitamin B12) [Mass/volume] in Serum or Plasma VITAMIN B12 Lab Routine Well adult exam Expected: 05/01/2024, Expires: 07/31/2024 [facility] Comment on above: Expected: 05/01/2024, Expires: Start: 05-01-2024 End: 07-31-2024 Comprehensive metabolic 2000 panel - Serum or Plasma COMPREHENSIVE METABOLIC PANEL Lab Routine Well adult exam Acute constipation Expected: 05/01/2024, Expires: 07/31/2024 [facility] Comment on above: Expected: 05/01/2024, Expires: Start: 05-01-2024 End: 07-31-2024 DHEA-S BLD DHEA-S BLD Lab Routine Well adult exam Expected: 05/01/2024, Expires: 07/31/2024 [facility] Comment on above: Expected: 05/01/2024, Expires: Start: 05-01-2024 End: 07-31-2024 Helicobacter pylori IgG Ab [Presence] in Serum or Plasma by Immunoassay H PYLORI IGG AB Lab Routine Well adult exam Expected: 05/01/2024, Expires: 07/31/2024 [facility] Comment on above: Expected: 05/01/2024, Expires: Start: 05-01-2024 End: 07-31-2024 Insulin [Units/volume] in Serum or Plasma INSULIN ASSAY BLOOD Lab Routine Well adult exam Hyperprolactinemia (HCC) Expected: 05/01/2024, Expires: 07/31/2024 [facility] Comment on above: Expected: 05/01/2024, Expires: Start: 05-01-2024 End: 07-31-2024 Iron and Iron binding capacity panel - Serum or Plasma IRON AND TIBC Lab Routine Well adult exam Expected: 05/01/2024, Expires: 07/31/2024 [facility] Comment on above: Expected: 05/01/2024, Expires: Start: 05-01-2024 End: 07-31-2024 LACTOSE TOLERANCE LACTOSE TOLERANCE Lab Routine Hyperprolactinemia (HCC) Acute constipation Expected: 05/01/2024, Expires: 07/31/2024 [facility] Comment on above: Expected: 05/01/2024, Expires: Start: 05-01-2024 End: 07-31-2024 LIPOPROTEIN FRACTIONATION BY NMR WITH LIPIDS LIPOPROTEIN FRACTIONATION BY NMR WITH LIPIDS Lab Routine Family history of premature CAD Expected: 05/01/2024, Expires: 07/31/2024 [facility] Comment on above: Expected: 05/01/2024, Expires: Start: 05-01-2024 End: 07-31-2024 Magnesium [Mass/volume] in Serum or Plasma MAGNESIUM Lab Routine Well adult exam Expected: 05/01/2024, Expires: 07/31/2024 [facility] Comment on above: Expected: 05/01/2024, Expires: Start: 05-01-2024 End: 07-31-2024 OMEGACHECK OMEGACHECK Lab Routine Well adult exam Family history of premature CAD Expected: 05/01/2024, Expires: 07/31/2024 [facility] Comment on above: Expected: 05/01/2024, Expires: Start: 05-01-2024 End: 07-31-2024 Thyrotropin [Units/volume] in Serum or Plasma THYROID STIMULATING HORMONE Lab Routine Well adult exam Expected: 05/01/2024, Expires: 07/31/2024 [facility] Comment on above: Expected: 05/01/2024, Expires: Start: 05-01-2024 End: 07-31-2024 Thyroxine (T4) free [Mass/volume] in Serum or Plasma T4 FREE/FREE THYROXINE Lab Routine Well adult exam Expected: 05/01/2024, Expires: 07/31/2024 [facility] Comment on above: Expected: 05/01/2024, Expires: Start: 05-01-2024 End: 07-31-2024 Triiodothyronine (T3) Free [Mass/volume] in Serum or Plasma T3, FREE Lab Routine Well adult exam Expected: 05/01/2024, Expires: 07/31/2024 [facility] Comment on above: Expected: 05/01/2024, Expires: Start: 05-01-2024 End: 05-01-2024 Patient encounter procedure 05/01/2024 9:40 AM EST Office Visit [facility] [place] [address] [place], [place] [phone] Sean Bond DO [address] [place], [place] [id number] Ok to est care per [facility] [place] Comment on above: Ok to est care per [facility] Start: 01-01-2024 Covid-19 Vaccine ( season) Covid-19 Vaccine ( season) [facility] Start: 01-01-2024 Covid-19 Vaccine ( season) Covid-19 Vaccine ( season) [facility] Start: 01-01-2024 Influenza vaccination Influenza Vaccine (#1) [facility] Start: 11-12-2022 [facility] Start: 12-03-2019 Screening for malignant neoplasm of cervix Cervical Cancer Screening [facility] Start: 2017 Hepatitis B Vaccine (1 of 3 - 19+ 3-dose series) Hepatitis B Vaccine (1 of 3 - 19+ 3-dose series) [facility] Start: 2017 Urine microalbumin profile DTaP,Tdap,Td Vaccine (1 - Tdap) [facility] Start: 2016 Anxiety Screening Anxiety Screening [facility] Start: 2016 Depression Screening Depression Screening [facility] Start: 2016 Hepatitis C screening Hepatitis C Screening [facility] Start: 2016 HIV screening HIV Screening [facility] Start: 2013 HPV Vaccine (1 - 3-dose series) HPV Vaccine (1 - 3-dose series) [facility] Start: 2012 Peds To Adult Transition Annual Assessment Peds To Adult Transition Annual Assessment [facility] Start: 2010 Peds To Adult Transition Initial Discussion Peds To Adult Transition Initial Discussion [facility] Androstenedione [Mas s/volume] in Serum or Plasma [facility] Dehydroepiandrostero ne sulfate (DHEA-S) [Mass/volume] in Serum or Plasma [facility] Mullerian inhibiting substance [Mass/volume] in Serum or Plasma [facility] Sex hormone binding globulin [Moles/volume] in Serum or Plasma [facility] Testosterone Free [Mass/volume] in Serum or Plasma [facility] Testosterone measurement [facility] Immunizations Immunization Date Immunization Notes Care Provider [facility] 02-07-2024 influenza, injectabl e, madin edith canine kidney, preservative free Dr. Fatemeh Medina MD Work Phone: [facility] 01-25-2023 influenza, injectabl e, quadrivalent, preservative free Dr. Grace Kapadia Work Phone: [facility] Payers Date Payer Category Payer Self-pay [id number] 2023 Private Health Insurance [id number] 2023 Self-pay [id number] 2023 Unknown [id number] 2017 Unknown [id number] 1998 Unknown [id number] 1998 Unknown [id number] 1998 Unknown [id number] Unknown [id number] Unknown [employer] [id number] Unknown [id number] Unknown [id number] Unknown [id number] Unknown [id number] Unknown [id number] Unknown [id number] Unknown [id number] Unknown [id number] Unknown [id number] Unknown [id number] Unknown [id number] Social History Date Type Detail Facility Start: 12-05-2019 End: 01-25-2023 Tobacco smoking status NHIS Unknown if ever smoked [facility] Start: 2000 Sex Assigned At Female W [facility] Start: 2000 Sex assigned at Not on file [facility] Start: 04-30-2024 End: 10-10-2024 Gender identity Not on file [facility] Start: 05-26-2023 End: 05-01-2024 Tobacco smoking status NHIS Never smoked tobacco [facility] Work Phone: Start: 05-01-2024 Tobacco use and exposure Smoke less tobacco non-user [facility] Start: 05-01-2024 End: 10-10-2024 Alcoholic beverage intake Ex-drinker (finding) Tomy Lizama jimmy Start: 04-30-2024 End: 10-10-2024 History of Social function [facility] Has the [employer], or [facility] threatened to shut off services in your home in past 12Mo No [facility] How often do you att end meetings of the clubs or organizations you belong to? Patient declined [facility] Are you now , , , , never or living with a partner? [facility] How often to you hav e a drink containing alcohol? 2-4 times a month [facility] How many standard dr inks containing alcohol do you have on a typical day? 1 or 2 [facility] How often do you hav e 6 or more drinks on 1 occasion? Never [facility] Do you feel stress - tense, restless, nervous, or anxious, or unable to sleep at night because your mind is troubled all the time - these days [OSQ] To some extent [facility] (I/We) worried catalina er (my/our) food would run out before (I/we) got money to buy more. Never true [facility] Start: 07-12-2024 End: 07-12-2024 Sex Female (finding) [facility] Clinical Notes 03-12-2024 to 10-10-2024 Sean Bond DO - 10/10/2024 8:47 PM EDTTelephone Encounter - Kathie Lucio - 06/08/2024 11:05 AM ESTTelephone Encounter - Kathie Lucio - 06/08/2024 11:05 AM EST Note Date & Type Note Facility 10-10-2024 Note HNO ID: [id number] Author: SEAN BOND DO Service: ? 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 Had compartment syndrome testing and subsequent surgery at [facility]. 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 She was then eventually stopped on her OCPs since she was taking these for menstrual regulation Hx of late onset of menarche at age 14 and only developed menses by being on OCPs. She wasn't ovulating. She has recently then been found to have hyperprolactinemia and started originally on Cabergoline but had severe GI upset. She was then changed to Bromocriptine which is what she takes now but only able to tolerate this when inserted vaginally. She struggles with constipation that came with abrupt onset around the same time as diagnosed with hyperprolactinemia and started on these medications. Also concerned about potential dairy food trigger or gluten food trigger to some of her symptoms since developed rash on her face that seemed to improved with removal of gluten and dairy Mild chronic anxiety symptoms. Did benefit in the past with zoloft but would prefer not be taking SSRI She has been told that because of the clotting disorder and the hyperprolactinemia, she may need special hormone management and medications when she is . She is now and would like to become in the future. She has Dr. Catherine Lennon as DIE DEVELOPER. Hasn't seen MFM/EDGAR in the past but is willing to. Family history of premature cardiac disease and premature in her father at age 52 and her paternal aunt and paternal grandfather all <55 years old Currently She had a recent miscarriage, this was confirmed by Dr. Catherine Kramer DIE DEVELOPER as well as with serum hcg testing. She was referred to M specialist for opinion to determine if she needed any intervention with anti coagulation or progesterone support when she gets in the future. She is excited that she is able to get Anxiety, situational triggered, feels that this is related to her current job and all the stress that she has with her job. 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 She doesn't want to be on medication for this. Is now taking a vitamin. She is continuing to take her bromocriptine but still wondering if this contributes to her facial acne and constipation Acne, found to have lactose intolerance with labs ordered in the last few months. She has tried to cut out dairy from her diet and realizes that she feels a lot better doing this. Her skin acne is resolved when following this and constipation improves. PAST MEDICAL HISTORY Diagnosis Date JAMARCUS-1 4G/5G genotype PAST SURGICAL HISTORY Procedure Laterality Date FASCIOTOMY,ILIOTIBIAL,OPEN Bilateral Current Outpatient Medications Medication Sig bromocriptine (PARLODEL) 2.5 mg tablet 2.5 mg. 2 pills daily No current facility-administered medications for this visit. ALLERGIES No Known Allergies Social History Tobacco Use Smoking status: Never Smokeless tobacco: Never Vaping Use Vaping status: Never Used Substance Use Topics Alcohol use: Not Currently Drug use: Never ROS: See HIP PE: BP 124/80 Pulse 64 Temp (Src) 96.6 (Left Tympanic) Resp 12 Wt 136 lb (61.7kg) LMP 10/07/2024 Gen: AANDOX3, NAD, non-toxic appearing HEENT: PERRLA, EOMs intact b/l, nares without drainage, pharynx without erythema, exudate, lesions, or drainage. Uvula midline. Neck: No LAD, no thyromegaly, no meningismus. CV: RRR, no murmur Lungs: CTA b/l, no wheezing Skin: No rashes, lesions, or wounds on exposed skin. Facial acne mild No edema legs ASSESSMENT/PLAN: 1. Situational anxiety - ICD9: 300.09, ICD10: F41.8 (primary diagnosis) She is not interested in being on medication. Was on zoloft in the past with benefit Can consider therapy/counseling Needs to consider a job change as well, which was d/w her today 2. Encounter for screening examination for other mental health and behavioral disorders - ICD9: V79.8, ICD10: Z13.39 - ANXIETY SCREENING 3. Hyperprolactinemia (HCC) - ICD9: 253.1, ICD10: E22.1 Continue bromocriptine medication. 4. Irregular menses - ICD9: 626.4, ICD10: N92.6 Continue bromocriptine, menses are stable at this time. 5. H/O one miscarriage - ICD9: V13.29, ICD10: Z87.59 See above, continue bromocriptine. DIE DEVELOPER states no progesterone or ASA or Lovenox needed in future pregnancies. Sean Fox (more content not included)... 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 Had compartment syndrome testing and subsequent surgery at [facility]. 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 She was then eventually stopped on her OCPs since she was taking these for menstrual regulation Hx of late onset of menarche at age 14 and only developed menses by being on OCPs. She wasn't ovulating. She has recently then been found to have hyperprolactinemia and started originally on Cabergoline but had severe GI upset. She was then changed to Bromocriptine which is what she takes now but only able to tolerate this when inserted vaginally. She struggles with constipation that came with abrupt onset around the same time as diagnosed with hyperprolactinemia and started on these medications. Also concerned about potential dairy food trigger or gluten food trigger to some of her symptoms since developed rash on her face that seemed to improved with removal of gluten and dairy Mild chronic anxiety symptoms. Did benefit in the past with zoloft but would prefer not be taking SSRI She has been told that because of the clotting disorder and the hyperprolactinemia, she may need special hormone management and medications when she is . She is now and would like to become in the future. She has Dr. Catherine Lennon as DIE DEVELOPER. Hasn't seen MFM/EDGAR in the past but is willing to. Family history of premature cardiac disease and premature in her father at age 52 and her paternal aunt and paternal grandfather all <55 years old Currently She had a recent miscarriage, this was confirmed by Dr. Catherine Kramer DIE DEVELOPER as well as with serum hcg testing. She was referred to [facility] specialist for opinion to determine if she needed any intervention with anti coagulation or progesterone support when she gets in the future. She is excited that she is able to get Anxiety, situational triggered, feels that this is related to her current job and all the stress that she has with her job. 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 She doesn't want to be on medication for this. Is now taking a vitamin. She is continuing to take her bromocriptine but still wondering if this contributes to her facial acne and constipation Acne, found to have lactose intolerance with labs ordered in the last few months. She has tried to cut out dairy from her diet and realizes that she feels a lot better doing this. Her skin acne is resolved when following this and constipation improves. PAST MEDICAL HISTORY Diagnosis Date JAMARCUS-1 4G/5G genotype PAST SURGICAL HISTORY Procedure Laterality Date FASCIOTOMY,ILIOTIBIAL,OPEN Bilateral Current Outpatient Medications Medication Sig bromocriptine (PARLODEL) 2.5 mg tablet 2.5 mg. 2 pills daily No current facility-administered medications for this visit. ALLERGIES No Known Allergies Social History Tobacco Use Smoking status: Never Smokeless tobacco: Never Vaping Use Vaping status: Never Used Substance Use Topics Alcohol use: Not Currently Drug use: Never ROS: See HIP PE: BP 124/80 Pulse 64 Temp (Src) 96.6 (Left Tympanic) Resp 12 Wt 136 lb (61.7kg) LMP 10/07/2024 Gen: A&OX3, NAD, non-toxic appearing HEENT: PERRLA, EOMs intact b/l, nares without drainage, pharynx without erythema, exudate, lesions, or drainage. Uvula midline. Neck: No LAD, no thyromegaly, no meningismus. CV: RRR, no murmur Lungs: CTA b/l, no wheezing Skin: No rashes, lesions, or wounds on exposed skin. Facial acne mild No edema legs ASSESSMENT/PLAN: 1. Situational anxiety - ICD9: 300.09, ICD10: F41.8 (primary diagnosis) She is not interested in being on medication. Was on zoloft in the past with benefit Can consider therapy/counseling Needs to consider a job change as well, which was d/w her today 2. Encounter for screening examination for other mental health and behavioral disorders - ICD9: V79.8, ICD10: Z13.39 - ANXIETY SCREENING 3. Hyperprolactinemia (HCC) - ICD9: 253.1, ICD10: E22.1 Continue bromocriptine medication. 4. Irregular menses - ICD9: 626.4, ICD10: N92.6 Continue bromocriptine, menses are stable at this time. 5. H/O one miscarriage - ICD9: V13.29, ICD10: Z87.59 See above, continue bromocriptine. DIE DEVELOPER states no progesterone or ASA or Lovenox needed in future pregnancies. Sean Bond DO Return if no improvement. Follow up with Sean Bond DO. To ER if develops chest pain, shortness of breath. Discussed risks, benefits, alternatives, and potential side effects of medications. Patient/Guardian expressed understanding and agreed with the plan. See patient instructions. Sean Bond DO [address] [place] [address] documented in this encounter [facility] 08-27-2024 Note HNO ID: [id number] Author: JULI HARDY MD Service: ? Author Type: Physician Type: Progress Notes Filed: 08/27/2024 09:20 Note Text: MFM CONSULTATION Requested by: Dr. Sean Bond Reason for consultation: blood clotting disorder, hisotry Reporting: Note/evaluation from today sent to requesting provider via shared medical record. HPI: Ms. Carissa Tripathi is a 23 year old woman who is not currently with a history remarkable for the followin. History of blood clots - The patient had lower extremity blood clots following fasciotomies for treatment of compartment syndrome which resulted from surgery for a stress fractur. She was not treated with anticoagulation given that the clots were below the knee and concern for bleeding risk in the setting of her surgery. 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 Review of records on her phone shows that she was negative for Factor V Leiden but there is no testing for other inherited or acquired thrombophilias. She was told told that she should not take estrogen-containing OCPs. She was recently (with a subsequent early miscarriage) and did start lovenox upon learning of her . 2. Hyperprolactinemia - The patient was found to have hyperprolactinemia during evaluation of oligomenorrhea. She states that head imaging showed either that she does not have a prolactinoma or that it is so small that it can barely be seen. She is maintained on bromocriptine. PAST MEDICAL HISTORY Diagnosis Date JAMARCUS-1 4G/5G genotype PAST SURGICAL HISTORY Procedure Laterality Date FASCIOTOMY,ILIOTIBIAL,OPEN Bilateral FAMILY HISTORY Problem Relation Age of Onset Heart Attack Father 52 Cancer Maternal Grandfather 71 esophageal Heart Attack Paternal Grandmother Breast Cancer Paternal Grandmother 79 Heart Attack Paternal Grandfather 42 Social History Tobacco Use Smoking status: Never Smokeless tobacco: Never Vaping Use Vaping status: Never Used Substance Use Topics Alcohol use: Not Currently Drug use: Never ALLERGIES No Known Allergies OB History Gravida1 Para0 Term0 Preterm0 AB1 Living0 SAB1 IAB0 Ectopic0 Multiple0 Live Births0 IMPRESSION: 23 year old woman with: ACTIVE PROBLEM LIST History of Fasciotomy - 05/01/2024 Irregular Menses - 05/01/2024 Late Menarche - 05/01/2024 Clotting Disorder (Hcc) - 05/01/2024 Family History of Premature Cad - 05/01/2024 Acute Constipation - 05/01/2024 Hyperprolactinemia (Hcc) - 05/01/2024 1. History of thromboembolism in the setting of orthopedic surgery - Due to the thrombogenic nature of , patients with a history of venous thromboembolism (VTE) may have an increased risk of recurrence during . The risk of recurrence is influenced by the circumstances surrounding the original DVT. For example, women with transient risk factors at the time of DVT such as prolonged immobilization and major surgery are less likely to have a DVT recurrence compared to women whose DVT occurred without provocation. Estrogen-related risk factors such as oral contraceptives and at the time of initial DVT are associated with a higher risk of DVT recurrence during a subsequent . In the case of this patient, she had a clear risk factor at the time of her DVT -recent long distance air travel. The latest guidelines from ACOG recommend that for women in this scenario, a workup for inherited and acquired thrombophilia should be performed. If her workup is negative, i.e., she has no thrombophilia with history of previous single episode of venous thromboembolism with a transient risk factor that was not estrogen-related, surveillance without anticoagulation therapy is recommended. Furthermore, if her workup is negative, she is not at increased risk of adverse obstetrical outcomes. Heterozygosity for the MTHFR C677T polymorphism is found in about 5-10% of the general population. Contrary to previous beliefs, current data shows no association of MTHFR with thromboembolic events or adverse outcomes such as SAB, IUGR, or preeclampsia. I do recommend folic acid supplementation due to a potential impairment in folate metabolism and resultant increase in NTDs that may occur. I do not recommend anticoagulation for this indication. We discussed that while the JAMARCUS 4G/5G mutation has been associated with an increased tendency towards venous thromboembolism and later cardiovascular disease that it has not bee associated with adverse outcomes or a significantly increased risk of thromboembolism during . I do not recommend anticoagulation for this indication. Review of the testing that has been done is incomplete, and I could not find results in care everywhere for other testing including prothrombin gene mutation, antithrombin II (more content not included)... [facility] 07-03-2024 Radiology Diagnostic study note [facility] Imaging Services [address] [place], [place] [id number] Transvaginal w/Preg US MR#: [id number] Acct: [id number] Name: CARISSA TRIPATHI Rep #: [id number] : 2000 F 23 From: Junaid Rangel MD PCP: Dr. Sean Bond, DO Status: RE G CLI Study:Transvaginal w/Preg US Date of Exam: 06/28/24 Exam# [id number] Ordering Dr: Catherine Mendoza MD PROCEDURE: TRANSVAGINAL W/PREG US REASON FOR EXAM: Threatened . Bleeding. COMPARISON: Comparison is made with prior study dated June 18, 2024. FINDINGS: Comments: LMP: May 02, 2024. Number of Gestational Sacs: Not visualized. Number of Fetuses: Not visualized. Yolk Sac: Not visualized. Placenta: Presently not well-visualized Uterine Abnormalities: Maternal uterus is unremarkable. Ovaries / Adnexa: 1.1 cm x 1.1 cm x 0.9 cm left ovarian follicle. US/Transvaginal w/Preg US IMPRESSION: No intrauterine gestation is seen at this time. Reading Location: [id number] CC: Dr. Sean Bond DO; Dr. Catherine Lennon MD ~ [employer] Agent: Signed [facility] 06-08-2024 Telephone encounter Note Patient referral was sent for a preconception visit. Patient called and spoke to PSS team. Patient stated that she was now and her appt was changed. Called patient and has not been confirmed. Discussed with patient that an OB visit needs to be scheduled prior to MFM. Patient understands and will schedule OB visit. LMP is May 02. [facility] 06-08-2024 Miscellaneous Notes Patient referral was sent for a preconception visit. Patient called and spoke to PSS team. Patient stated that she was now and her appt was changed. Called patient and has not been confirmed. Discussed with patient that an OB visit needs to be scheduled prior to MFM. Patient understands and will schedule OB visit. LMP is May 02. documented in this encounter [facility] 05-21-2024 Telephone encounter Note Pt. informed via my Chart. [facility] 05-21-2024 Miscellaneous Notes Pt. informed via my Chart. Please call patient and let her know that overall her labs are good. Her omega 3 levels could be a little higher- would increase these foods in her diet. Cook with olive oil and avocado oil. Limit seed oils otherwise. Increased healthy nuts and avocado and salmon and tuna as well Her vitamin d levels are low normal. Would increase her vitamin D3 supplement by extra 1000 international unit(s) a day Her vitamin B12 levels are low normal. Would increase her vitamin B12 by extra 500 mcg every other day or daily Her celiac comprehensive panel is Category 1 which means she is low risk for Celiac disease and her antibodies are negative which means she doesn't have celiac disease but still as a mild risk of not tolerating gluten. Sean Bond DO documented in this encounter [facility] 05-21-2024 Telephone encounter Note Please call patient and let her know that overall her labs are good. Her omega 3 levels could be a little higher- would increase these foods in her diet. Cook with olive oil and avocado oil. Limit seed oils otherwise. Increased healthy nuts and avocado and salmon and tuna as well Her vitamin d levels are low normal. Would increase her vitamin D3 supplement by extra 1000 international unit(s) a day Her vitamin B12 levels are low normal. Would increase her vitamin B12 by extra 500 mcg every other day or daily Her celiac comprehensive panel is Category 1 which means she is low risk for Celiac disease and her antibodies are negative which means she doesn't have celiac disease but still as a mild risk of not tolerating gluten. Sean Bond DO [facility] 05-12-2024 Telephone encounter Note Pt. informed via My Chart. [facility] 05-12-2024 Miscellaneous Notes Pt. informed via My Chart. Please inform patient that her lactose tolerance testing is ABNORMAL and she is definitely lactose intolerant. Would benefit from avoiding lactose rich dairy foods and doing lactose free or reduced exposure. Sean Bond DO documented in this encounter [facility] 05-12-2024 Telephone encounter Note Please inform patient that her lactose tolerance testing is ABNORMAL and she is definitely lactose intolerant. Would benefit from avoiding lactose rich dairy foods and doing lactose free or reduced exposure. Sean Bond DO [facility] 05-11-2024 Note HNO ID: [id number] Author: CHARLOTTE SAMAYOA LPN Service: ? Author Type: LICENSED NURSE Type: Progress Notes Filed: 05/11/2024 08:52 Note Text: Patient presents for Lactose Intolerance testing. Baseline lab levels completed at lab and Lactose (Lactose Monohydrate Powder 50grams in 400mL water) administered to patient at 8:39am. Tolerated well. LOT # [id number] EXP 05/24/2026 Charlotte Samayoa LPN [facility] 05-11-2024 History of Present illness Narrative Patient presents for Lactose Intolerance testing. Baseline lab levels completed at lab and Lactose (Lactose Monohydrate Powder 50grams in 400mL water) administered to patient at 8:39am. Tolerated well. LOT # [id number] EXP 05/24/2026 Charlotte Samayoa LPN documented in this encounter [facility] 05-01-2024 Note HNO ID: [id number] Author: SEAN BOND DO Service: ? Author Type: Physician Type: Progress Notes Filed: 05/01/2024 12:05 Note Text: CC: Carissa Tripathi is a 23 year old female who presents to the office to establish care. 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 Had compartment syndrome testing and subsequent surgery at [facility]. 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 She was then eventually stopped on her OCPs since she was taking these for menstrual regulation Hx of late onset of menarche at age 14 and only developed menses by being on OCPs. She wasn't ovulating. She has recently then been found to have hyperprolactinemia and started originally on Cabergoline but had severe GI upset. She was then changed to Bromocriptine which is what she takes now but only able to tolerate this when inserted vaginally. She struggles with constipation that came with abrupt onset around the same time as diagnosed with hyperprolactinemia and started on these medications. Also concerned about potential dairy food trigger or gluten food trigger to some of her symptoms since developed rash on her face that seemed to improved with removal of gluten and dairy Mild chronic anxiety symptoms. Did benefit in the past with zoloft but would prefer not be taking SSRI She has been told that because of the clotting disorder and the hyperprolactinemia, she may need special hormone management and medications when she is . She is now and would like to become in the future. She has Dr. Catherine Lennon as DIE DEVELOPER. Hasn't seen MFM/EDGAR in the past but is willing to. Family history of premature cardiac disease and premature in her father at age 52 and her paternal aunt and paternal grandfather all <55 years old PAST MEDICAL HISTORY Diagnosis Date JAMARCUS-1 4G/5G genotype PAST SURGICAL HISTORY Procedure Laterality Date FASCIOTOMY,ILIOTIBIAL,OPEN Bilateral Social History: Social History Tobacco Use Smoking status: Never Smokeless tobacco: Never Vaping Use Vaping status: Never Used Substance Use Topics Alcohol use: Not Currently Drug use: Never FAMILY HISTORY Problem Relation Age of Onset Heart Attack Father 52 Cancer Maternal Grandfather 71 esophageal Heart Attack Paternal Grandmother Breast Cancer Paternal Grandmother 79 Heart Attack Paternal Grandfather 42 Current Outpatient prescriptions: bromocriptine (PARLODEL) 2.5 mg tablet 2.5 mg. 2 pills daily Allergies: ALLERGIES No Known Allergies ROS: See HPI PE: 05/01/24 0928 BP: 90/60 Pulse: 76 Resp: 12 Temp: 36.3 ?C (97.3 ?F) TempSrc: Temporal Weight: 62.9 kg (138 lb 10.7 oz) Height: 173 cm (5' 8.11) Gen: AANDO, NAD, non-toxic appearing, Pleasant, cooperative Discussion examination ASSESSMENT/PLAN: 1. Hyperprolactinemia (HCC) - ICD9: 253.1, ICD10: E22.1 (primary diagnosis) Labs as ordered Continue bromocriptine. F/u with Wellness Educator specialist for mgmt of medications Start on probiotic / prebiotic supplements to help bowel health and constipation symptoms Check to make sure not lactose intolerant or gluten intolerant/celiac - C-PEPTIDE BLD - INSULIN ASSAY BLOOD - CELIAC COMPREHENSIVE PANEL - LACTOSE TOLERANCE - CONSULT TO MATERNAL MEDI 2. Well adult exam - ICD9: V70.0, ICD10: Z00.00 Labs as ordered Continue bromocriptine. F/u with Wellness Educator specialist for mgmt of medications Start on probiotic / prebiotic supplements to help bowel health and constipation symptoms Check to make sure not lactose intolerant or gluten intolerant/celiac Come back to office for physical spring/summer - COMPLETE BLOOD COUNT AND DIFFERENTIAL - COMPREHENSIVE METABOLIC PANEL - DHEA-S BLD - THYROID STIMULATING HORMONE - T4 FREE/FREE THYROXINE - T3, FREE - H PYLORI IGG AB - IRON AND TIBC - VITAMIN D 25 HYDROXY - VITAMIN B12 - MAGNESIUM - C-PEPTIDE BLD - INSULIN ASSAY BLOOD - CELIAC COMPREHENSIVE PANEL - OMEGACHECK 3. Acute constipation - ICD9: 564.00, ICD10: K59.00 Labs as ordered Continue bromocriptine. F/u with Wellness Educator specialist for mgmt of medications Start on probiotic / prebiotic supplements to help bowel health and constipation symptoms Check to make sure not lactose intolerant or gluten intolerant/celiac Come back to office for physical spring/summer - COMPLETE BLOOD COUNT AND DIFFERENTIAL - COMPREHENSIVE METABOLIC PANEL - CELIAC COMPREHENSIVE PANEL - LACTOSE TOLERANCE 4. Family history of premature CAD - ICD9: V17.3, ICD10: Z82.49 Labs as ordered Continue bromocriptine. F/u with Wellness Educator specialist for mgmt of medications Start on probiotic / prebiotic supp (more content not included)... [facility] 05-01-2024 History of Present illness Narrative CC: Carissa Tripathi is a 23 year old female who presents to the office to establish care. 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 Had compartment syndrome testing and subsequent surgery at [facility]. 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 She was then eventually stopped on her OCPs since she was taking these for menstrual regulation Hx of late onset of menarche at age 14 and only developed menses by being on OCPs. She wasn't ovulating. She has recently then been found to have hyperprolactinemia and started originally on Cabergoline but had severe GI upset. She was then changed to Bromocriptine which is what she takes now but only able to tolerate this when inserted vaginally. She struggles with constipation that came with abrupt onset around the same time as diagnosed with hyperprolactinemia and started on these medications. Also concerned about potential dairy food trigger or gluten food trigger to some of her symptoms since developed rash on her face that seemed to improved with removal of gluten and dairy Mild chronic anxiety symptoms. Did benefit in the past with zoloft but would prefer not be taking SSRI She has been told that because of the clotting disorder and the hyperprolactinemia, she may need special hormone management and medications when she is . She is now and would like to become in the future. She has Dr. Catherine Lennon as DIE DEVELOPER. Hasn't seen MFM/EDGAR in the past but is willing to. Family history of premature cardiac disease and premature in her father at age 52 and her paternal aunt and paternal grandfather all <55 years old PAST MEDICAL HISTORY Diagnosis Date JAMARCUS-1 4G/5G genotype PAST SURGICAL HISTORY Procedure Laterality Date FASCIOTOMY,ILIOTIBIAL,OPEN Bilateral Social History: Social History Tobacco Use Smoking status: Never Smokeless tobacco: Never Vaping Use Vaping status: Never Used Substance Use Topics Alcohol use: Not Currently Drug use: Never FAMILY HISTORY Problem Relation Age of Onset Heart Attack Father 52 Cancer Maternal Grandfather 71 esophageal Heart Attack Paternal Grandmother Breast Cancer Paternal Grandmother 79 Heart Attack Paternal Grandfather 42 Current Outpatient prescriptions: bromocriptine (PARLODEL) 2.5 mg tablet 2.5 mg. 2 pills daily Allergies: ALLERGIES No Known Allergies ROS: See HPI PE: 05/01/24 0928 BP: 90/60 Pulse: 76 Resp: 12 Temp: 36.3 C (97.3 F) TempSrc: Temporal Weight: 62.9 kg (138 lb 10.7 oz) Height: 173 cm (5' 8.11) Gen: A&O, NAD, non-toxic appearing, Pleasant, cooperative Discussion examination ASSESSMENT/PLAN: 1. Hyperprolactinemia (HCC) - ICD9: 253.1, ICD10: E22.1 (primary diagnosis) Labs as ordered Continue bromocriptine. F/u with Wellness Educator specialist for mgmt of medications Start on probiotic / prebiotic supplements to help bowel health and constipation symptoms Check to make sure not lactose intolerant or gluten intolerant/celiac - C-PEPTIDE BLD - INSULIN ASSAY BLOOD - CELIAC COMPREHENSIVE PANEL - LACTOSE TOLERANCE - CONSULT TO MATERNAL MEDI 2. Well adult exam - ICD9: V70.0, ICD10: Z00.00 Labs as ordered Continue bromocriptine. F/u with Wellness Educator specialist for mgmt of medications Start on probiotic / prebiotic supplements to help bowel health and constipation symptoms Check to make sure not lactose intolerant or gluten intolerant/celiac Come back to office for physical spring/summer - COMPLETE BLOOD COUNT AND DIFFERENTIAL - COMPREHENSIVE METABOLIC PANEL - DHEA-S BLD - THYROID STIMULATING HORMONE - T4 FREE/FREE THYROXINE - T3, FREE - H PYLORI IGG AB - IRON AND TIBC - VITAMIN D 25 HYDROXY - VITAMIN B12 - MAGNESIUM - C-PEPTIDE BLD - INSULIN ASSAY BLOOD - CELIAC COMPREHENSIVE PANEL - OMEGACHECK 3. Acute constipation - ICD9: 564.00, ICD10: K59.00 Labs as ordered Continue bromocriptine. F/u with Wellness Educator specialist for mgmt of medications Start on probiotic / prebiotic supplements to help bowel health and constipation symptoms Check to make sure not lactose intolerant or gluten intolerant/celiac Come back to office for physical spring/summer - COMPLETE BLOOD COUNT AND DIFFERENTIAL - COMPREHENSIVE METABOLIC PANEL - CELIAC COMPREHENSIVE PANEL - LACTOSE TOLERANCE 4. Family history of premature CAD - ICD9: V17.3, ICD10: Z82.49 Labs as ordered Continue bromocriptine. F/u with Wellness Educator specialist for mgmt of medications Start on probiotic / prebiotic supplements to help bowel health and constipation symptoms Check to make sure not lactose intolerant or gluten intolerant/celiac Come back to office for physical spring/summer - LIPOPROTEIN FRACTIONATION BY NMR WITH LIPIDS - APOLIPOPROTEIN A+B - OMEGACHECK 5. Clotting disorder (HCC) - ICD9: 286.9, ICD10: D68.9 Labs as ordered Continue bromocriptine. F/u with Wellness Educator specialist for mgmt of medications Start on probiotic / prebiotic supplements to help bowel health and constipation symptoms Check to make sure not lactose intolerant or gluten intolerant/celiac Come back to office for physical spring/summer Need for MFM/EDGAR opinion preconception for medication/hormone recommendations with - CONSULT TO MATERNAL MEDI 6. Late menarche - ICD9: 256.39, ICD10: E30.0 Labs as ordered Continue bromocriptine. F/u with Wellness Educator specialist for mgmt of medications Start on probiotic / prebiotic supplements to help bowel health and constipation symptoms Check to make sure not lactose intolerant or gluten intolerant/celiac Come back to office for physical spring/summer Need for MFM/EDGAR opinion preconception for medication/hormone recommendations with 7. Irregular menses - ICD9: 626.4, ICD10: N92.6 Labs as ordered Continue bromocriptine. F/u with Wellness Educator specialist for mgmt of medications Start on probiotic / prebiotic supplements to help bowel health and constipation symptoms Check to make sure not lactose intolerant or gluten intolerant/celiac Come back to office for physical spring/summer Need for MFM/EDGAR opinion preconception for medication/hormone recommendations with 8. History of fasciotomy - ICD9: V15.29, ICD10: Z98.890 Labs as ordered Continue bromocriptine. F/u with Wellness Educator specialist for mgmt of medications Start on probiotic / prebiotic supplements to help bowel health and constipation symptoms Check to make sure not lactose intolerant or gluten intolerant/celiac Come back to office for physical spring/summer Need for MFM/EDGAR opinion preconception for medication/hormone recommendations with Sean Bond DO I spent 52 minutes in the visit, with more than 50% of the total [id number] time of the visit in counseling / coordination of care. To ER if develops chest pain, shortness of breath, or severe worsening of symptoms. Discussed risks, benefits, alternatives, and potential side effects of medications. Patient expressed understanding and agreed with the plan. Sean Bond DO [address] [place] [address] documented in this encounter [facility] 03-12-2024 Telephone encounter Note Yes, ok to establish care 40 min visit please Sean Bond DO [facility] Work Phone: 03-12-2024 Miscellaneous Notes Yes, ok to establish care 40 min visit please Sean Bond DO Patient's mother calling in to see if Dr. Bond would be willing to take her daughter on as a new patient. Her brother, Farshad Tripathi- just recently established. Please review and advise. Mother Katherine can be reached at [phone]. Freddie Segura March 12, 2024 9:48 AM documented in this encounter [facility] 03-12-2024 Telephone encounter Note Patient's mother calling in to see if Dr. Bond would be willing to take her daughter on as a new patient. Her brother, Farshad Tripathi- just recently established. Please review and advise. Mother Katherine can be reached at [phone]. Freddie Segura March 12, 2024 9:48 AM [facility] Evaluation note No assessment inform ation available [facility] Work Phone: Evaluation note Diagnosis Onset Date Acne acute Generalized anxiety disorder with panic attacks chronic [facility] Work Phone: Evaluation note* Diagnosis Onset Date Resolution Status Acne chronic Generalized anxiety disorder with panic attacks chronic B12 deficiency acute Acne chronic Generalized anxiety disorder with panic attacks chronic Hyperprolactinemia chronic Flu vaccine need acute [facility] Work Phone: Evaluation note* Diagnosis Onset Date Resolution Status Acne chronic Generalized anxiety disorder with panic attacks chronic Hyperprolactinemia chronic [facility] Work Phone: Evaluation note* Diagnosis Onset Date Resolution Status B12 deficiency acute Acne chronic Generalized anxiety disorder with panic attacks chronic Hyperprolactinemia chronic Flu vaccine need acute [facility] Work Phone: Evaluation note* Diagnosis Hyperprolactinemia (HCC)- Primary Other and unspecified anterior pituitary hyperfunction Well adult exam Routine general medical examination at a health care facility Acute constipation Unspecified constipation Family history of premature CAD Family history of ischemic heart disease Clotting disorder (HCC) Other and unspecified coagulation defects Late menarche Other ovarian failure Irregular menses Irregular menstrual cycle History of fasciotomy Personal history of surgery to other organs documented in this encounter [facility] note* Diagnosis Acute constipation- Primary Unspecified constipation documented in this encounter [facility] note* Diagnosis Situational anxiety- Primary Other anxiety states Encounter for screening examination for other mental health and behavioral disorders Hyperprolactinemia (HCC) Other and unspecified anterior pituitary hyperfunction Irregular menses Irregular menstrual cycle H/O one miscarriage Personal history of other genital system and obstetric disorders documented in this encounter [facility] for referral (narrative)No reason for referral [facility] Work [facility]: Summary Purpose Family History No Family History Records Found Relationship Condition Age at Onset Recorded Date/T leeroy father Myocardial infarction 52 grandfather Coronary artery disease Unknown Myocardial infarction 42 grandmother Coronary artery disease Unknown uncle Coronary artery disease Unknown Sudden cardiac Unknown Relationship Condition Age at Onset Recorded Date/T leeroy father Myocardial infarction 52 grandfather Coronary artery disease Unknown Myocardial infarction 42 Malignant neoplasm Unknown grandmother Coronary artery disease Unknown History of blood clots Unknown Malignant neoplasm of breast Unknown Malignant neoplasm of skin Unknown uncle Coronary artery disease Unknown Sudden cardiac Unknown mother High blood cholesterol Unknown aunt Disorder of thyroid Unknown Advance Directives No Advanced Directives Records FoundNo Advanced Directives Records FoundNo Advanced Directives Records FoundNo Advanced Directives Records FoundNo Advanced Directives Records FoundNo Advanced Directives Records FoundNo Advanced Directives Records Found Chief Complaint and Reason for Visit Chief Complaint SEVERE ANXIETY AMENORRHEA AND DIABETES MELLITUS Reason for Visit Acne Generalized anxiety disorder with panic attacks Chief Complaint SEVERE ANXIETY AMENORRHEA AND DIABETES MELLITUS Hypopituitarism Reason for Visit Acne Generalized anxiety disorder with panic attacks Chief Complaint SEVERE ANXIETY AMENORRHEA AND DIABETES MELLITUS Hypopituitarism 7 wk fu FLU SHOT Reason for Visit Acne Generalized anxiety disorder with panic attacks B12 deficiency Acne Generalized anxiety disorder with panic attacks Hyperprolactinemia Flu vaccine need Chief Complaint MED DISCUSSION Reason for Visit Acne Generalized anxiety disorder with panic attacks Hyperprolactinemia Chief Complaint MED DISCUSSION NEED ORDER Reason for Visit Acne Generalized anxiety disorder with panic attacks Hyperprolactinemia Chief Complaint 7 wk fu FLU SHOT Reason for Visit B12 deficiency Acne Generalized anxiety disorder with panic attacks Hyperprolactinemia Flu vaccine need Chief Complaint Admit Date MISSED MENSES June 18, 2024 9:22am THREATENED June 28, 2024 3:19pm Reason for Referral Specialty Diagnoses / Procedures Referred By Contdayanara t Referred To Contact Diagnoses Hyperprolactinemia (HCC) Clotting disorder (HCC) Procedures CONSULT TO MATERNAL MEDI OFFICE/OUTPATIENT [facility] 60 MINUTES Sean Bond, [address] [place] [address] Referral ID Status Reason Start Date Expiration Date Visits Requested Visits Authorized [id number] Authorized PCP Requested Referral Auto-Generate d Referral 4 05/01/2025 1 1 Additional Source Comments INFORMATION SOURCE (unrecogn ized section and content) DATE CREATED AUTHOR 10/24/2017 [facility] ([place]) DATE CREATED AUTHOR AUTHOR'S ORGANIZ ATION 05/03/2019 [facility] DATE CREATED AUTHOR AUTHOR'S ORGANIZ ATION 07/07/2019 [facility] DATE CREATED AUTHOR AUTHOR'S ORGANIZ ATION 09/03/2024 [facility] DATE CREATED AUTHOR AUTHOR'S ORGANIZ ATION 10/13/2024 [facility] DATE CREATED AUTHOR AUTHOR'S ORGANIZ ATION 12/09/2024 [facility] DATE CREATED AUTHOR AUTHOR'S ORGANIZ ATION 12/19/2024 [facility] Goals (unrecognized section and content) Goals may be documented in a n alternate sectionGoals may be documented in an alternate sectionGoals may be documented in an alternate sectionGoals may be documented in an alternate sectionGoals may be documented in an alternate sectionGoals may be documented in an alternate sectionGoals may be documented in an alternate sectionGoals may be documented in an alternate sectionGoals may be documented in an alternate sectionGoals may be documented in an alternate section Care Teams (unrecognized sec tion and content) Team Status: Active Member Role Status Dates No Primary Care Physician Family Provider Active Dr. Fatemeh Medina MD Primary Care Provider Active Team Status: Inactive Member Role Status Dates Dr. Grace Kapadia MD Referring Provider Active Dr. Fatemeh Medina MD Attending Provider Active Team Status: Inactive Member Role Status Dates Dr. Catherine Lennon MD Attending Provider, Refer ring Provider Active Dr. Fatemeh Medina MD Primary Care Provider Active Team Status: Inactive Member Role Status Dates Dr. Fatemeh Medina MD Primary Care Provider Active Dr. Catherine Lennon MD Attending Provider, Refer ring Provider Active Team Status: Inactive Member Role Status Dates Dr. Fatemeh Medina MD Primary Care P rovider, Attending Provider, Referring Provider Active Team Status: Inactive Member Role Status Dates Dr. Fatemeh Medina MD Primary Care Provider, Atten ding Provider Active Team Status: Inactive Member Role Status Dates Dr. Fatemeh Medina MD Primary Care Provider Active Dr. Catherine Lennon MD Attending Provider Active Director Inbound Sales Relationship Specialty Start Date End Date Sean Bond DO [address] [place] [address] PCP - General Family Medicine 05/01/24 Director Inbound Sales Relationship Specialty Start Date End Date Sean Bond DO [address] [place], [place] [id number] PCP - General Family Medicine 05/01/24 Director Inbound Sales Relationship Specialty Start Date End Date Sean Bond DO [address] [place], [place] [id number] PCP - General Family Medicine 05/01/24 Director Inbound Sales Relationship Specialty Start Date End Date Sean Bond DO [address] [place] [address] PCP - General Family Medicine 05/01/24 Director Inbound Sales Relationship Specialty Start Date End Date Sean Bond DO [address] [place] [address] PCP - General Family Medicine 05/01/24 Team Status: Active Member Role Status Dates Dr. Sean Bond DO Primary Care Provider Active Team Status: Inactive Member Role Status Dates Dr. Fatemeh Medina MD Primary Care Provider Active Start: June 13, 2024 End: June 13, 2024 Dr. Catherine Lennon MD Attending Provider Active Start: June 13, 2024 End: June 13, 2024 Dr. Catherine Lennon MD Referring Provider Active Start: June 13, 2024 End: June 13, 2024 Team Status: Inactive Member Role Status Dates Dr. Sean Bond DO Primary Care Provider Active Start: June 17, 2024 End: June 17, 2024 Dr. Catherine Lennon MD Attending Provider Active Start: June 17, 2024 End: June 17, 2024 Team Status: Inactive Member Role Status Dates Dr. Catherine Lennon MD Attending Provider Active Start: June 18, 2024 End: June 18, 2024 Dr. Catherine Lennon MD Referring Provider Active Start: June 18, 2024 End: June 18, 2024 Dr. Sean Bond DO Primary Care Provider Active Start: June 18, 2024 End: June 18, 2024 Team Status: Active Member Role Status Dates Dr. Sean Bond DO Primary Care Provider Active Start: June 28, 2024 Dr. Catherine Lennon MD Attending Provider Active Start: June 28, 2024 Dr. Catherine Lennon MD Referring Provider Active Start: June 28, 2024 Team Status: Inactive Member Role Status Dates Dr. Sean Bond DO Primary Care Provider Active Start: June 28, 2024 End: June 28, 2024 Dr. Catherine Lennon MD Attending Provider Active Start: June 28, 2024 End: June 28, 2024 Dr. Catherine Lennon MD Referring Provider Active Start: June 28, 2024 End: June 28, 2024 Director Inbound Sales Relationship Specialty Start Date End Date Sean Bond DO [address] [facility] [address] PCP - General Family Medicine 05/01/24 Stephanie Schuster APRN.AUTOMOTIVE GENERATOR REPAIRER [address] [facility] [place] [address] [employer] [facility] 07/13/24 Team Status: Active Member Role/Relationship Status Dates Dr. Sean Bond DO Primary Care Provider Active Team Status: Inactive Member Role/Relationship Status Dates Dr. Sean Bond DO Primary Care Provider Active Start: August 25, 2024 End: August 29, 2024 Dr. Catherine Lennon MD Attending Provider Active Start: August 25, 2024 End: August 29, 2024 Dr. Catherine Lennon MD Referring Provider Active Start: August 25, 2024 End: August 29, 2024 Team Status: Inactive Member Role/Relationship Status Dates Dr. Sean Bond DO Primary Care Provider Active Start: December 06, 2024 End: December 06, 2024 Dr. Catherine Lennon MD Attending Provider Active Start: December 06, 2024 End: December 06, 2024 Dr. Catherine Lennon MD Referring Provider Active Start: December 06, 2024 End: December 06, 2024 Team Status: Active Member Role/Relationship Status Dates Dr. Sean Bond DO Primary Care Provider Active Start: December 10, 2024 Dr. Catherine Lennon MD Attending Provider Active Start: December 10, 2024 Dr. Catherine Lennon MD Referring Provider Active Start: December 10, 2024 Source Comments (unrecognize d section and content) In the event this informatio n is protected by the Federal Confidentiality of Alcohol and Drug Abuse Patient Records regulations: The Federal rules restrict any use of the information to criminally investigate or prosecute any alcohol or drug abuse patient.[facility] the event this information is protected by the Federal Confidentiality of Alcohol and Drug Abuse Patient Records regulations: The Federal rules restrict any use of the information to criminally investigate or prosecute any alcohol or drug abuse patient.[facility] the event this information is protected by the Federal Confidentiality of Alcohol and Drug Abuse Patient Records regulations: The Federal rules restrict any use of the information to criminally investigate or prosecute any alcohol or drug abuse patient.[facility] the event this information is protected by the Federal Confidentiality of Alcohol and Drug Abuse Patient Records regulations: The Federal rules restrict any use of the information to criminally investigate or prosecute any alcohol or drug abuse patient.[facility] the event this information is protected by the Federal Confidentiality of Alcohol and Drug Abuse Patient Records regulations: The Federal rules restrict any use of the information to criminally investigate or prosecute any alcohol or drug abuse patient.[facility] the event this information is protected by the Federal Confidentiality of Alcohol and Drug Abuse Patient Records regulations: The Federal rules restrict any use of the information to criminally investigate or prosecute any alcohol or drug abuse patient.[facility] the event this information is protected by the Federal Confidentiality of Alcohol and Drug Abuse Patient Records regulations: The Federal rules restrict any use of the information to criminally investigate or prosecute any alcohol or drug abuse patient.[facility] Reason for Visit (unrecogniz ed section and content) Reason Comments Appointment Patient Question Reason Comments Establish Care Reason Comments Lactose Tolerance Test Reason Comments F/U 3 Month FOR RECORDS PERTAINING TO PATIENTS WHO ARE [...] BE BASED ON THE PRIMARY CLINICAL RECORDS. [facility] [employer] [facility]. provides no warranty or guarantee of the accuracy or completeness of information in this document.
== END | disposition home or self-care (01) ==
LOC: US 14:27
PROVIDERS: PCP Student in an Organized Health Care Education/Training Program; Referring Provider Obstetrics & Gynecology; Visit Provider Obstetrics & Gynecology
DX: N92.6 Irregular menstruation, unspecified (principal)
CPT/HCPCS: 76817

== ENCOUNTER 2024-12-24 06:48 | Outpatient (RCR) | payer OTHER, SELFPAY ==
[2024-12-10 07:28] LABS: hCG Titer Quant., Serum 1829 mIU/mL (<9 non-preg)
[2024-12-11 04:07] LABS: PROGESTERONE 14.1 ng/mL (.); PROLACTIN 49.2 ng/mL (4.8-33.4)
[2024-12-17 09:33] LABS: hCG Titer Quant., Serum 17441 mIU/mL (<9 non-preg)
[2024-12-18 04:07] LABS: PROGESTERONE 41.3 ng/mL (.)
[2024-12-25 04:07] LABS: PROGESTERONE 28.3 ng/mL (.)
== END 2024-12-24 18:00 | disposition home or self-care (01) ==
LOC: LAB 06:48
PROVIDERS: PCP Student in an Organized Health Care Education/Training Program; Referring Provider Obstetrics & Gynecology; Visit Provider Obstetrics & Gynecology
DX: O99.280 Endocrine, nutritional and metabolic diseases complicating pregnancy, unspecified trimester (principal); E22.1 Hyperprolactinemia; E28.9 Ovarian dysfunction, unspecified; N92.6 Irregular menstruation, unspecified
CPT/HCPCS: 36415; 82670; 84144; 84146; 84702

== ENCOUNTER 2025-01-28 10:38 | Outpatient (RCR) | payer OTHER, SELFPAY ==
[2025-01-07 16:29] LABS: hCG Titer Quant., Serum 125465 mIU/mL (<9 non-preg)
[2025-01-09 04:07] LABS: PROGESTERONE 40.7 ng/mL (.)
[2025-01-29 04:07] LABS: PROGESTERONE 26.9 ng/mL (.)
== END 2025-01-29 18:00 | disposition home or self-care (01) ==
LOC: LAB 10:38
PROVIDERS: PCP Student in an Organized Health Care Education/Training Program; Referring Provider Obstetrics & Gynecology; Visit Provider Obstetrics & Gynecology
DX: O99.280 Endocrine, nutritional and metabolic diseases complicating pregnancy, unspecified trimester (principal); E22.1 Hyperprolactinemia; E28.9 Ovarian dysfunction, unspecified; N92.6 Irregular menstruation, unspecified
CPT/HCPCS: 36415; 82670; 84144; 84702

== ENCOUNTER 2025-02-12 14:19 | Outpatient (RCR) | payer OTHER, SELFPAY ==
[2025-02-14 04:07] LABS: PROGESTERONE 27.7 ng/mL (.)
== END 2025-02-12 18:00 | disposition home or self-care (01) ==
LOC: LAB 14:19
PROVIDERS: PCP Student in an Organized Health Care Education/Training Program; Referring Provider Obstetrics & Gynecology; Visit Provider Obstetrics & Gynecology
DX: N92.6 Irregular menstruation, unspecified (principal)
CPT/HCPCS: 36415; 84144

== ENCOUNTER 2025-03-04 07:05 | Outpatient (RCR) | payer OTHER, SELFPAY ==
[2025-03-05 04:07] LABS: PROGESTERONE 31.8 ng/mL (.)
== END 2025-03-30 18:00 | disposition home or self-care (01) ==
LOC: LAB 07:05
PROVIDERS: PCP Student in an Organized Health Care Education/Training Program; Referring Provider Obstetrics & Gynecology; Visit Provider Obstetrics & Gynecology
DX: E22.1 Hyperprolactinemia; E28.9 Ovarian dysfunction, unspecified; Z78.9 Other specified health status
CPT/HCPCS: 36415; 84144

== ENCOUNTER 2025-04-04 15:14 | Outpatient (RCR) | payer OTHER, SELFPAY ==
[2025-04-06 04:07] LABS: PROGESTERONE 37.3 ng/mL (.)
== END 2025-04-04 18:00 | disposition home or self-care (01) ==
LOC: LAB 15:14
PROVIDERS: PCP Student in an Organized Health Care Education/Training Program; Referring Provider Obstetrics & Gynecology; Visit Provider Obstetrics & Gynecology
DX: Z79.890 Hormone replacement therapy; E22.1 Hyperprolactinemia; E28.9 Ovarian dysfunction, unspecified
CPT/HCPCS: 36415; 82670; 84144